=== PATIENT | female | born 1965 | race Caucasian/White ===

== ENCOUNTER 2016-10-15 16:33 | Emergency (ER) | payer OTHER ==
--- NOTE | 2016-10-15 17:11 | ERPHSYRPT ---
- History of Present Illness Time Seen by Provider: 10/15/16 17:00 Source: patient Exam Limitations: no limitations Patient Subjective Stated Complaint: pt states she has had lethargy for the past 1 week. pt states she has a hx of kidney failure and is worried about her kidney function. pt also c/o back pain she states she was treated with a steriod for a few weeks ago. Triage Nursing Assessment: pt pink, warm, dry. pt ambulated into er without difficulty. pt afebrile. Physician History: 51 y/o female with history of renal insufficiency comes to the ER with complaints of feeling exhausted for the past week. Pt mentions she has no energy lately and is concerned that her kidney function has worsened. Pt reports that the last time her PCP evaluated her kidneys was last year at which time there was significant improvement from 18% to 34%. Pt was on steroids for back pain 2 weeks ago. No other new medications. Pt also admits to mild fluttering, but denies any fever, chills, chest pain, shortness of breath, dizziness, abdominal pain, nausea, vomiting, diarrhea, bloody stools, melena or urinary symptoms. Timing/Duration: day(s) Severity: moderate Allergies/Adverse Reactions: hydrocodone bitartrate [From Vicodin] Allergy (Mild, Verified 10/15/16 17:07) Itching oxycodone [Oxycodone] Allergy (Mild, Verified 10/15/16 17:07) Itching Sulfa (Sulfonamide Antibiotics) [Sulfa(Sulfonamide Antibiotics)] Allergy (Mild, Verified 10/15/16 17:07) Hives codeine Adverse Reaction (Mild, Verified 10/15/16 17:07) Itching meperidine HCl [From Demerol] Adverse Reaction (Mild, Verified 10/15/16 17:07) Vomiting Home Medications: Allopurinol 300 mg [Zyloprim 300 mg] 300 mg PO DAILY 02/16/15 [History] Aspirin 81 mg PO DAILY 02/16/15 [History] Atorvastatin Calcium [Lipitor] 80 mg PO HS 02/16/15 [History] Furosemide 20 mg PO DAILY 02/16/15 [History] Lisinopril [Zestril] 2.5 mg PO DAILY 02/16/15 [History] Omeprazole 40 mg PO DAILY 02/16/15 [History] Ropinirole HCl 1 mg PO HS 02/16/15 [History] Temazepam 30 mg PO HS 02/16/15 [History] Potassium Chloride 16 meq PO DAILY 07/28/16 [History] Venlafaxine HCl ER 75 mg [Effexor XR 75 MG] 75 mg PO DAILY 07/28/16 [ History] Hx Tetanus, Diphtheria Vaccination/Date Given: Yes (up to date) Hx Influenza Vaccination/Date Given: Yes Hx Pneumococcal Vaccination/Date Given: Yes Immunizations Up to Date: Yes - Review of Systems Constitutional: Fatigue, Lethargy, Weakness, No Fever, No Chills Eyes: No Symptoms Ears, Nose, & Throat: No Symptoms Respiratory: No Cough, No Dyspnea Cardiac: Palpitations, No Chest Pain, No Edema, No Syncope Abdominal/Gastrointestinal: No Abdominal Pain, No Nausea, No Vomiting, No Diarrhea Genitourinary Symptoms: No Dysuria Musculoskeletal: No Back Pain, No Neck Pain Skin: No Rash Neurological: No Dizziness, No Focal Weakness, No Sensory Changes Psychological: No Symptoms Endocrine: No Symptoms All Other Systems: Reviewed and Negative - Past Medical History Pertinent Past Medical History: Yes Neurological History: Migraines ENT History: No Pertinent History Cardiac History: Angina, Congestive Heart Failure, Coronary Artery Disease, High Cholesterol, Hypertension, Myocardial Infarction ([place]) Respiratory History: Asthma Endocrine Medical History: No Pertinent History Musculoskeletal History: Arthritis GI Medical History: GERD, Gallbladder Disease, GI Bleed History: Renal Disease Psycho-Social History: Anxiety, Depression Female Reproductive Disorders: Abnormal Uterine Bleeding, Endometriosis Other Medical History: GOUT - RLS - Past Surgical History Past Surgical History: Yes Neuro Surgical History: No Pertinent History Cardiac: CABG, Cardiac Catheterization Respiratory: No Pertinent History Gastrointestinal: Cholecystectomy Genitourinary: Kidney Surgery Musculoskeletal: Other Female Surgical History: Hysterectomy Other Surgical History: knee muscle lateral release dwaine , kidney stone removal x 7, hernia repair - Social History Smoking Status: Never smoker Exposure to second hand smoke: No Drug Use: none Patient Lives Alone: No Significant Family History: heart disease, hypertension - Female History Hx Now: No - Nursing Vital Signs Nursing Vital Signs: Initial Vital Signs Temperature 98.1 F Temperature Source Oral Pulse Rate 74 Respiratory Rate 18 Blood Pressure [Right Arm] 131/77 Pain Intensity 0 - Physical Exam General Appearance: no apparent distress, alert, anxiety, obese Eye Exam: PERRL/EOMI, eyes nml inspection Ears, Nose, Throat Exam: normal ENT inspection, TMs normal, pharynx normal, moist mucous membranes Neck Exam: normal inspection, non-tender, supple, full range of motion Respiratory Exam: normal breath sounds, lungs clear, No respiratory distress Cardiovascular Exam: regular rate/rhythm, normal heart sounds, normal peripheral pulses Gastrointestinal/Abdomen Exam: soft, normal bowel sounds, No tenderness, No mass Back Exam: normal inspection, normal range of motion, No CVA tenderness, No vertebral tenderness Extremity Exam: normal inspection, normal range of motion, pelvis stable Neurologic Exam: alert, oriented x 3, cooperative, normal mood/affect, nml cerebellar function, nml station & gait, sensation nml, No motor deficits Skin Exam: normal color, warm, dry, No rash Lymphatic Exam: No adenopathy Ordered Tests: Active Orders 24 hr Category Date Time Status Business Analytics Intern STAT Care 10/15/16 17:12 Active EKG-ER Only STAT Care 10/15/16 17:05 Active IV Insertion STAT Care 10/15/16 17:05 Active Pulse Oximetry (ED) STAT Care 10/15/16 17:12 Active CBC W DIFF Stat Lab 10/15/16 17:10 Completed CK-Creatinine Phosphokinase Stat Lab 10/15/16 17:10 Completed CMP Stat Lab 10/15/16 17:10 Completed TROPONIN Stat Lab 10/15/16 17:10 Completed TSH, 3RD Generation Stat Lab 10/15/16 17:10 Completed UA W/RFX UR CULTURE Stat Lab 10/15/16 17:10 Completed Medication Summary Generic Name Dose Route Start Last Admin Trade Name Freq PRN Reason Stop Dose Admin Sodium Chloride 1,000 mls @ 999 mls/hr 10/15/16 18:21 10/15/16 18:31 Sodium Chloride 0.9% 1000 Ml IV 10/15/16 19:21 999 mls/hr .Q1H1M STA Administration Discontinued Medications Generic Name Dose Route Start Last Admin Trade Name Freq PRN Reason Stop Dose Admin Sodium Chloride Confirm 10/15/16 18:23 Sodium Chloride 0.9% 1000 Ml Administered 10/15/16 18:24 Dose 1,000 mls @ ud .ROUTE .STK-MED ONE Lab/Rad Data: Laboratory Result Diagrams 10/15/16 17:10 10/15/16 17:10 Laboratory Results 10/15/16 10/15/16 10/15/16 Range/Units 17:10 17:10 17:10 WBC (4.0-10.5) K/mm3 RBC (4.1-5.4) M/mm3 Hgb (12.0-16.0) gm/dl Hct (35-47) % MCV (78-100) fl MCH (26-32) pg MCHC (32-36) g/dl RDW (11.5-14.0) % Plt Count (150-450) K/mm3 MPV (6-9.5) fl Gran % (36.0-66.0) % Lymphocytes % (24.0-44.0) % Monocytes % (0.0-12.0) % Eosinophils % (0.00-5.0) % Basophils % (0.0-0.4) % Basophils # (0-0.4) Sodium 143 (136-145) mEq/L Potassium 4.1 (3.5-5.1) mEq/L Chloride 107 (98-107) mEq/L Carbon Dioxide 22.3 (21-32) mEq/L Anion Gap 17.4 H (5-15) MEQ/L BUN 23 H (9-20) mg/dL Creatinine 1.35 H (0.55-1.30) mg/dl Estimated GFR 44 ML/MIN Glucose 145 H (70-110) MG/DL Calcium 8.9 (8.5-10.1) mg/dL Total Bilirubin 0.3 (0.2-1.0) mg/dL AST 21 (15-37) U/L ALT 38 (12-78) U/L Alkaline Phosphatase 102 (46-116) U/L Creatine Kinase 48 (26-192) U/L Troponin I < 0.017 (0.000-0.056) ng/ml Serum Total Protein 6.9 (6.4-8.2) gm/dL Albumin 3.3 L (3.4-5.0) g/dL TSH 3rd Generation 0.563 (0.358-3.740) mIU/L Ur Collection Type CLEAN CATCH Urine Color YELLOW (YELLOW) Urine Appearance CLEAR (CLEAR) Urine pH 5.5 (5-6) Ur Specific [place] 1.020 (1.005-1.025) Urine Protein NEGATIVE (Negative) Urine Glucose (UA) NEGATIVE (NEGATIVE) mg/dL Urine Ketones NEGATIVE (NEGATIVE) Urine Nitrite NEGATIVE (NEGATIVE) Urine Bilirubin NEGATIVE (NEGATIVE) Urine Urobilinogen 0.2 (0-1) mg/dL Urine WBC (Auto) NEGATIVE (NEGATIVE) Urine RBC (Auto) NEGATIVE (0-5) Zain/ul Specimen Received 10/15/16 1735 10/15/16 Range/Units 17:10 WBC 7.6 (4.0-10.5) K/mm3 RBC 4.54 (4.1-5.4) M/mm3 Hgb 13.3 (12.0-16.0) gm/dl Hct 42.0 (35-47) % MCV 92.5 (78-100) fl MCH 29.3 (26-32) pg MCHC 31.7 L (32-36) g/dl RDW 14.0 (11.5-14.0) % Plt Count 248 (150-450) K/mm3 MPV 10.9 H (6-9.5) fl Gran % 50.6 (36.0-66.0) % Lymphocytes % 37.2 (24.0-44.0) % Monocytes % 8.4 (0.0-12.0) % Eosinophils % 3.4 (0.00-5.0) % Basophils % 0.4 (0.0-0.4) % Basophils # 0.03 (0-0.4) Sodium (136-145) mEq/L Potassium (3.5-5.1) mEq/L Chloride (98-107) mEq/L Carbon Dioxide (21-32) mEq/L Anion Gap (5-15) MEQ/L BUN (9-20) mg/dL Creatinine (0.55-1.30) mg/dl Estimated GFR ML/MIN Glucose (70-110) MG/DL Calcium (8.5-10.1) mg/dL Total Bilirubin (0.2-1.0) mg/dL AST (15-37) U/L ALT (12-78) U/L Alkaline Phosphatase (46-116) U/L Creatine Kinase (26-192) U/L Troponin I (0.000-0.056) ng/ml Serum Total Protein (6.4-8.2) gm/dL Albumin (3.4-5.0) g/dL TSH 3rd Generation (0.358-3.740) mIU/L Ur Collection Type Urine Color (YELLOW) Urine Appearance (CLEAR) Urine pH (5-6) Ur Specific [place] (1.005-1.025) Urine Protein (Negative) Urine Glucose (UA) (NEGATIVE) mg/dL Urine Ketones (NEGATIVE) Urine Nitrite (NEGATIVE) Urine Bilirubin (NEGATIVE) Urine Urobilinogen (0-1) mg/dL Urine WBC (Auto) (NEGATIVE) Urine RBC (Auto) (0-5) Zain/ul Specimen Received - Progress Progress: improved Progress Note: 10/15/16 18:51 Pt has an elevated BUN and Cr that is likely related to dehydration. Pt has a GFR of 44. The rest of the labs are within normal limits. Pt has agreed to F/U with her PCP regarding any additional recommendations for fatigue - Departure Time of Disposition: 18:52 Departure Disposition: Home Clinical Impression: Weakness, Fatigue, Dehydration Condition: Stable Critical Care Time: No Referrals: TNIA KING [Primary Care Provider] - Instructions: Muscle Weakness, Fatigue, Dehydration -- Adult Additional Instructions: Follow up with your primary care doctor regarding any additional recommendations for fatigue.
[2016-10-15 17:38] LABS: BASOPHIL % 0.4 % (0.0-0.4); Eosinophil % 3.4 % (0.00-5.0); Granulocytes % 50.6 % (36.0-66.0); Lymphocytes % 37.2 % (24.0-44.0); Mean Cell Volume 92.5 fl (78-100); Mean Corpuscular Hemoglobin 29.3 pg (26-32); Mean Platelet Volume 10.9 fl (6-9.5); Monocytes % 8.4 % (0.0-12.0); Platelet Count 248 K/mm3 (150-450); Red Blood Count 4.54 M/mm3 (4.1-5.4); White Blood Count 7.6 K/mm3 (4.0-10.5)
[2016-10-15 17:40] LABS: ADD URINE CULTURE? NO (NO); COMPLETE URINE MICROSCOPIC? NO; Collection Type CLEAN CATCH; Ph 5.5 (5-6)
[2016-10-15 18:07] LABS: ALBUMIN 3.3 g/dL (3.4-5.0); ALKALINE PHOSPHATASE 102 U/L (46-116); ANION GAP 17.4 MEQ/L (5-15); BILIRUBIN,TOTAL 0.3 mg/dL (0.2-1.0); BLOOD UREA NITROGEN 23 mg/dL (9-20); CHLORIDE 107 mEq/L (98-107); Carbon Dioxide 22.3 mEq/L (21-32); Glucose 145 MG/DL (70-110); Potassium 4.1 mEq/L (3.5-5.1); SGOT/AST 21 U/L (15-37); SGPT/ALT 38 U/L (12-78); SODIUM 143 mEq/L (136-145); Total Protein 6.9 gm/dL (6.4-8.2)
[2016-10-15 18:09] LABS: TROPONIN < 0.017 ng/ml (0.000-0.056)
[2016-10-15] MEDS ORDERED: Sodium Chloride 0.9% 1000 ML 1,000 ML IV STA (18:21)
[2016-10-15] MEDS ORDERED: Sodium Chloride 0.9% 1000 ML 1,000 ML ONE (18:23)
[2016-10-15 20:02] VITALS: BP 122/71; PULSE 81; O2SAT 100
== END 2016-10-15 20:01 | disposition home or self-care (01) ==
LOC: ED 16:33
DX: R53.1 Weakness (principal); R53.83 Other fatigue; E86.0 Dehydration; R00.2 Palpitations; I50.9 Heart failure, unspecified; I25.10 Atherosclerotic heart disease of native coronary artery without angina pectoris; E78.00 Pure hypercholesterolemia, unspecified; I10 Essential (primary) hypertension; I25.2 Old myocardial infarction; Z95.1 Presence of aortocoronary bypass graft
CPT/HCPCS: 36000; 36415; 80053; 81000; 82550; 84443; 84484; 85025; 93005; 93041; 96360; 99283

== ENCOUNTER 2017-02-08 10:06 | Emergency (ER) | payer OTHER ==
[2017-02-08 10:28] VITALS: O2SAT 96
[2017-02-08] MEDS ORDERED: Norflex 60 MG/2 ML IM ONE (10:37)
[2017-02-08] MEDS ORDERED: DECADRON 10MG INJ. IM ONE (10:37)
[2017-02-08] MEDS ORDERED: Norflex 60 MG/2 ML ONE (10:42)
[2017-02-08] MEDS ORDERED: DECADRON 10MG INJ. ONE (10:42)
--- NOTE | 2017-02-08 10:45 | ERPHSYRPT ---
- History of Present Illness Time Seen by Provider: 02/08/17 10:22 Source: patient Patient Subjective Stated Complaint: pt states she has had lower diffuse back pain for the past 2 days. became worse after walkin on 02/06/17. Triage Nursing Assessment: pt pink, warm, dry. pt ambulated into ER without difficulty. no deformities noted to back. denies any dysuria. Physician History: CC: back pain Hx: 51 y/o patient of Dr King/[place]. She has low back pain. Worsened over two years. Now has some tingle down left leg. No bladder symptoms. No fever or chills. No hx of CA. No discreet injury or fall. The pain was worse. In the past she used to get injections thru a specialist in [facility]. She has also used physical therapy in the past but felt it made her worse. Back Pain Location: lumbar spine Severity of Pain-Max: severe Severity of Pain-Current: severe Allergies/Adverse Reactions: hydrocodone bitartrate [From Vicodin] Allergy (Mild, Verified 02/08/17 10:27) Itching oxycodone [Oxycodone] Allergy (Mild, Verified 02/08/17 10:27) Itching Sulfa (Sulfonamide Antibiotics) [Sulfa(Sulfonamide Antibiotics)] Allergy (Mild, Verified 02/08/17 10:27) Hives codeine Adverse Reaction (Mild, Verified 02/08/17 10:27) Itching meperidine HCl [From Demerol] Adverse Reaction (Mild, Verified 02/08/17 10:27) Vomiting Home Medications: Allopurinol 300 mg [Zyloprim 300 mg] 300 mg PO DAILY 02/16/15 [History] Aspirin 81 mg PO DAILY 02/16/15 [History] Atorvastatin Calcium [Lipitor] 80 mg PO HS 02/16/15 [History] Furosemide 20 mg PO DAILY 02/16/15 [History] Lisinopril [Zestril] 2.5 mg PO DAILY 02/16/15 [History] Omeprazole 40 mg PO DAILY 02/16/15 [History] Ropinirole HCl 1 mg PO HS 02/16/15 [History] Temazepam 30 mg PO HS 02/16/15 [History] Potassium Chloride 16 meq PO DAILY 07/28/16 [History] Hx Tetanus, Diphtheria Vaccination/Date Given: Yes (up to date) Hx Influenza Vaccination/Date Given: Yes Hx Pneumococcal Vaccination/Date Given: Yes Immunizations Up to Date: Yes - Review of Systems Constitutional: No Fever, No Chills Eyes: No Symptoms Ears, Nose, & Throat: No Symptoms Respiratory: No Cough Cardiac: No Chest Pain Abdominal/Gastrointestinal: No Abdominal Pain Genitourinary Symptoms: No Dysuria, No Hematuria, No Incontinence, No Flank Pain Musculoskeletal: Back Pain, No Fall, No Injury Skin: No Rash Neurological: Parasthesia (left leg), No Headache, No Paralysis All Other Systems: Reviewed and Negative - Past Medical History Pertinent Past Medical History: Yes Neurological History: Migraines ENT History: No Pertinent History Cardiac History: Angina, Congestive Heart Failure, Coronary Artery Disease, High Cholesterol, Hypertension, Myocardial Infarction ([place]) Respiratory History: Asthma Endocrine Medical History: No Pertinent History Musculoskeletal History: Arthritis GI Medical History: GERD, Gallbladder Disease, GI Bleed History: Renal Disease Psycho-Social History: Anxiety, Depression Female Reproductive Disorders: Abnormal Uterine Bleeding, Endometriosis Other Medical History: GOUT - RLS - Past Surgical History Past Surgical History: Yes Neuro Surgical History: No Pertinent History Cardiac: CABG, Cardiac Catheterization Respiratory: No Pertinent History Gastrointestinal: Cholecystectomy Genitourinary: Kidney Surgery Musculoskeletal: Other Female Surgical History: Hysterectomy Other Surgical History: knee muscle lateral release dwaine , kidney stone removal x 7, hernia repair - Social History Smoking Status: Never smoker Exposure to second hand smoke: No Drug Use: none Patient Lives Alone: No Significant Family History: heart disease, hypertension - Female History Hx Now: No - Nursing Vital Signs Temperature: 98.3 F Temperature Source: Oral Pulse Rate: 59 Respiratory Rate: 22 - Physical Exam General Appearance: alert, obese, other (pleasant lady) Eye Exam: PERRL/EOMI Ears, Nose, Throat Exam: normal ENT inspection, moist mucous membranes Neck Exam: normal inspection, non-tender, supple Respiratory Exam: normal breath sounds, lungs clear Cardiovascular Exam: regular rate/rhythm Gastrointestinal Exam: soft, No tenderness, No distention Back Exam: normal inspection, other (diffuse low discomfort) Extremity Exam: normal inspection, normal range of motion Neurologic Exam: alert, oriented x 3, sensation nml, No motor deficits Skin Exam: warm, dry, No rash SpO2 Interpretation: normal SpO2: 96 Oxygen Delivery: Room Air - Course Nursing assessment & vital signs reviewed: Yes Ordered Tests: Medication Summary Discontinued Medications Generic Name Dose Route Start Last Admin Trade Name Nita PRN Reason Stop Dose Admin Dexamethasone Sodium Phosphate 10 mg 02/08/17 10:37 Decadron 10mg Inj. IM 02/08/17 10:38 STAT ONE Orphenadrine Citrate 60 mg 02/08/17 10:37 Norflex 60 Mg/2 Ml IM 02/08/17 10:38 STAT ONE - Progress Progress Note: 02/08/17 10:44 X-ray does not seem indicated. Advised she follow up with Dr King to consider PT or referral back to her destination specialist. She will continued APAP. Rx norflex and shot given. Also IM decadron given here. She can not take hydrocodone, oxycodone, nor NSAIDS. Counseled pt/family regarding: diagnosis, need for follow-up - Departure Time of Disposition: 10:45 Departure Disposition: Home Clinical Impression: Sciatica, left side Condition: Stable Critical Care Time: No Referrals: TINA KING [Primary Care Provider] - Instructions: Low Back Pain Additional Instructions: BACK INJURY 1. May apply moist heat frequently for relief of pain. Take care not to burn the skin. Do not use heat for more than 30 minutes at a time. 2. Try to sleep on a firm bed, flat on your back. 3. If no improvement is noticed in 2-3 days, follow up with your family physician. 4. If you notice any numbness, tingling, weakness, or problems with your bowel or bladder, you should call your family physician or return to the emergency department. Rx norflex- don't take until tonite. No driving or operating machinery while taking norflex. Continue tylenol as directed. You were given a steroid injection in ER also. Follow up this week with Dr King. Prescriptions: Orphenadrine Citrate 100 mg [Norflex 100 MG Tablet] 1 tab PO BID #10 tab
[2017-02-08 10:54] VITALS: BP 120/72; PULSE 60
== END 2017-02-08 11:00 | disposition home or self-care (01) ==
LOC: ED 10:06
DX: M54.32 Sciatica, left side (principal)
CPT/HCPCS: 96372; 99284; J1100; J2360

== ENCOUNTER 2017-03-04 22:29 | Emergency (ER) | payer OTHER ==
[2017-03-04] MEDS ORDERED: BABY ASPIRIN 81 MG CHEW PO ONE (22:38)
[2017-03-04] MEDS ORDERED: Nitrostat 0.4 MG (ED) SL ONE ×2 (22:38→22:47)
--- NOTE | 2017-03-04 22:42 | ERPHSYRPT ---
- History of Present Illness Time Seen by Provider: 03/04/17 22:30 Historian: patient Exam Limitations: no limitations Physician History: FOR THE PAST 2 HOURS PT HAS HAD INTERMITTENT MID CHEST PAIN LASTING UP TO 2 SECONDS/EPISODE; FOR THE PAST 30 MINUTES A HEADACHE; FOR THE PAST 24 HOURS CHILLS; FOR THE PAST FEW MONTHS MID BACK PAIN. Aspirin Treatment Today: 81 mg x 4, provided by ED Allergies/Adverse Reactions: hydrocodone bitartrate [From Vicodin] Allergy (Mild, Verified 03/04/17 22:42) Itching oxycodone [Oxycodone] Allergy (Mild, Verified 03/04/17 22:42) Itching Sulfa (Sulfonamide Antibiotics) [Sulfa(Sulfonamide Antibiotics)] Allergy (Mild, Verified 03/04/17 22:42) Hives codeine Adverse Reaction (Mild, Verified 03/04/17 22:42) Itching meperidine HCl [From Demerol] Adverse Reaction (Mild, Verified 03/04/17 22:42) Vomiting Home Medications: Allopurinol 300 mg [Zyloprim 300 mg] 300 mg PO DAILY 02/16/15 [History] Aspirin 81 mg PO DAILY 02/16/15 [History] Atorvastatin Calcium [Lipitor] 80 mg PO HS 02/16/15 [History] Furosemide 20 mg PO QAM 02/16/15 [History] Lisinopril [Zestril] 2.5 mg PO QAM 02/16/15 [History] Omeprazole 40 mg PO QAM 02/16/15 [History] Ropinirole HCl 1 mg PO HS 02/16/15 [History] Temazepam 30 mg PO HS 02/16/15 [History] Potassium Chloride 16 meq PO QAM 07/28/16 [History] Cholecalciferol (Vitamin D3) [Vitamin D3] 1,000 unit PO QAM 03/04/17 [History] Cyanocobalamin 500 Mcg [Vitamin B-12 500 MCG] 2,500 mcg PO QAM 03/04/17 [ History] Iron 65 mg PO BID 03/04/17 [History] Venlafaxine HCl ER 75 mg [Effexor XR 75 MG] 75 mg PO QAM 03/04/17 [History ] Hx Tetanus, Diphtheria Vaccination/Date Given: Yes (up to date) Hx Influenza Vaccination/Date Given: Yes Hx Pneumococcal Vaccination/Date Given: Yes - Review of Systems Constitutional: Chills Cardiac: Chest Pain Musculoskeletal: Back Pain Neurological: Headache All Other Systems: Reviewed and Negative - Past Medical History Pertinent Past Medical History: Yes Neurological History: Migraines ENT History: No Pertinent History Cardiac History: Angina, Congestive Heart Failure, Coronary Artery Disease, High Cholesterol, Hypertension, Myocardial Infarction ([place]) Respiratory History: Asthma Endocrine Medical History: No Pertinent History Musculoskeletal History: Arthritis GI Medical History: GERD, Gallbladder Disease, GI Bleed History: Renal Disease Psycho-Social History: Anxiety, Depression Female Reproductive Disorders: Abnormal Uterine Bleeding, Endometriosis Other Medical History: GOUT - RLS - Past Surgical History Past Surgical History: Yes Neuro Surgical History: No Pertinent History Cardiac: CABG, Cardiac Catheterization Respiratory: No Pertinent History Gastrointestinal: Cholecystectomy Genitourinary: Kidney Surgery Musculoskeletal: Other Female Surgical History: Hysterectomy Other Surgical History: knee muscle lateral release dwaine , kidney stone removal x 7, hernia repair - Social History Smoking Status: Never smoker Exposure to second hand smoke: No Drug Use: none Patient Lives Alone: No Significant Family History: heart disease, hypertension - Female History Hx Now: No - Nursing Vital Signs Nursing Vital Signs: Initial Vital Signs Temperature 98.2 F Temperature Source Oral Pulse Rate [] 86 Pulse Rate 81 Respiratory Rate 16 Blood Pressure [] 122/73 Pain Intensity 1 - Physical Exam General Appearance: alert Eye Exam: PERRL/EOMI, eyes nml inspection Ears, Nose, Throat Exam: pharynx normal, moist mucous membranes Neck Exam: normal inspection Respiratory Exam: lungs clear Cardiovascular Exam: normal heart sounds Gastrointestinal/Abdomen Exam: soft, normal bowel sounds Back Exam: normal range of motion Extremity Exam: normal inspection Neurologic Exam: alert, cooperative Skin Exam: warm, dry - Course Nursing assessment & vital signs reviewed: Yes EKG Interpreted by Me: RATE (84), Sinus Rhythm, NORMAL AXIS, NORMAL INTERVALS, Other (IRBBB) - Radiology Exams Chest X-ray Interpretation: Interpreted by me, No Pneumonia Ordered Tests: Active Orders 24 hr Category Date Time Status Therapeutic Recreation Assistant STAT Care 03/04/17 22:37 Active EKG-ER Only STAT Care 03/04/17 22:37 Active IV Insertion STAT Care 03/04/17 22:37 Active Oxygen-ED Only NASAL CANNULA 2 lpm Care 03/04/17 22:37 Active Pulse Oximetry (ED) STAT Care 03/04/17 22:37 Active CHEST 1 VIEW (PORTABLE) Stat Exams 03/04/17 22:37 Taken AMYLASE Stat Lab 03/04/17 22:40 Completed CBC W DIFF Stat Lab 03/04/17 22:40 Completed CMP Stat Lab 03/04/17 22:40 Completed LIPASE Stat Lab 03/04/17 22:40 Completed MAGNESIUM Stat Lab 03/04/17 22:40 Completed NT PRO BNP Stat Lab 03/04/17 22:40 Completed TROPONIN Q3H Lab 03/04/17 22:40 Completed TROPONIN Q3H Lab 03/05/17 01:45 Ordered TROPONIN Q3H Lab 03/05/17 04:45 Ordered TROPONIN Q3H Lab 03/05/17 07:45 Ordered TROPONIN Q3H Lab 03/05/17 10:45 Ordered Medication Summary Generic Name Dose Route Start Last Admin Trade Name Freq PRN Reason Stop Dose Admin Sodium Chloride 1,000 mls @ 100 mls/hr 03/04/17 22:45 03/04/17 22:48 Sodium Chloride 0.9% 1000 Ml IV 04/03/17 22:44 100 mls/hr .Q10H HEIDI Administration Discontinued Medications Generic Name Dose Route Start Last Admin Trade Name Freq PRN Reason Stop Dose Admin Aspirin 324 mg 03/04/17 22:38 03/04/17 22:48 Baby Aspirin 81 Mg Chew PO 03/04/17 22:39 324 mg STAT ONE Administration Aspirin Confirm 03/04/17 22:46 Baby Aspirin 81 Mg Chew Administered 03/04/17 22:47 Dose 324 mg .ROUTE .STK-MED ONE Nitroglycerin 0.4 mg 03/04/17 22:38 03/04/17 22:48 Nitrostat 0.4 Mg (Ed) SL 03/04/17 22:39 0.4 mg STAT ONE Administration Nitroglycerin Confirm 03/04/17 22:47 Nitrostat 0.4 Mg (Ed) Administered 03/04/17 22:48 Dose 0.4 mg SL .STK-MED ONE Lab/Rad Data: Laboratory Result Diagrams 03/04/17 22:40 03/04/17 22:40 Laboratory Results 03/04/17 03/04/17 03/04/17 Range/Units 22:40 22:40 22:40 WBC 8.3 (4.0-10.5) K/mm3 RBC 4.73 (4.1-5.4) M/mm3 Hgb 14.2 (12.0-16.0) gm/dl Hct 43.4 (35-47) % MCV 91.8 (78-100) fl MCH 30.0 (26-32) pg MCHC 32.7 (32-36) g/dl RDW 13.4 (11.5-14.0) % Plt Count 275 (150-450) K/mm3 MPV 10.8 H (6-9.5) fl Gran % 43.8 (36.0-66.0) % Lymphocytes % 40.8 (24.0-44.0) % Monocytes % 10.8 (0.0-12.0) % Eosinophils % 4.2 (0.00-5.0) % Basophils % 0.4 (0.0-0.4) % Basophils # 0.03 (0-0.4) Sodium 142 (136-145) mEq/L Potassium 3.9 (3.5-5.1) mEq/L Chloride 107 (98-107) mEq/L Carbon Dioxide 24.7 (21-32) mEq/L Anion Gap 13.8 (5-15) MEQ/L BUN 18 (9-20) mg/dL Creatinine 1.18 (0.55-1.30) mg/dl Estimated GFR 51 ML/MIN Glucose 178 H (70-110) MG/DL Calcium 9.2 (8.5-10.1) mg/dL Magnesium 2.0 (1.8-2.4) mg/dL Total Bilirubin 0.20 (0.2-1.0) mg/dL AST 21 (15-37) U/L ALT 33 (12-78) U/L Alkaline Phosphatase 145 H (46-116) U/L Troponin I < 0.017 (0.000-0.056) ng/ml NT-Pro-B Natriuret Pep 41 (0-125) pg/ml Serum Total Protein 7.3 (6.4-8.2) gm/dL Albumin 3.6 (3.4-5.0) g/dL Amylase 39 (25-115) U/L Lipase 252 (73-393) U/L - Progress Progress Note: 03/04/17 23:52 PT DOES NOT WANT A U/A. - Departure Time of Disposition: 23:53 Departure Disposition: Home Clinical Impression: CHEST PAIN Condition: Fair Critical Care Time: No Referrals: TINA KING [Primary Care Provider] - Instructions: Chest Pain Additional Instructions: FOLLOW UP WITH PRIVATE DOCTOR TOMORROW.
[2017-03-04] MEDS ORDERED: Sodium Chloride 0.9% 1000 ML 1,000 ML IV SCH (22:45)
[2017-03-04] MEDS ORDERED: BABY ASPIRIN 81 MG CHEW ONE (22:46)
[2017-03-04] MEDS ORDERED: Sodium Chloride 0.9% 1000 ML 1,000 ML ONE (22:47)
[2017-03-04 22:53] LABS: BASOPHIL % 0.4 % (0.0-0.4); Eosinophil % 4.2 % (0.00-5.0); Granulocytes % 43.8 % (36.0-66.0); Lymphocytes % 40.8 % (24.0-44.0); Mean Cell Volume 91.8 fl (78-100); Mean Platelet Volume 10.8 fl (6-9.5); Monocytes % 10.8 % (0.0-12.0); Platelet Count 275 K/mm3 (150-450); Red Blood Count 4.73 M/mm3 (4.1-5.4); Red Cell Distribution Width 13.4 % (11.5-14.0); White Blood Count 8.3 K/mm3 (4.0-10.5)
[2017-03-04 23:01] VITALS: O2SAT 98
[2017-03-04 23:24] LABS: ALBUMIN 3.6 g/dL (3.4-5.0); ANION GAP 13.8 MEQ/L (5-15); BILIRUBIN,TOTAL 0.2 mg/dL (0.2-1.0); Carbon Dioxide 24.7 mEq/L (21-32); Potassium 3.9 mEq/L (3.5-5.1); Total Protein 7.3 gm/dL (6.4-8.2)
[2017-03-05 00:29] VITALS: BP 152/75; PULSE 76
--- NOTE | 2017-03-05 08:16 | XRAY ---
Indication: Chest pain. Comparison: July 28, 2016. Portable chest unchanged again demonstrating previous CABG surgery without cardiomegaly and minimal bibasilar atelectasis/scarring. No infiltrate, consolidation, or large effusion. Vascularity normal. Bony thorax intact again with mild degenerative changes. Impression: Stable nonacute chest with chronic features.
== END 2017-03-05 00:30 | disposition home or self-care (01) ==
LOC: ED 22:29
DX: R07.9 Chest pain, unspecified (principal); I25.2 Old myocardial infarction; I50.9 Heart failure, unspecified; I25.10 Atherosclerotic heart disease of native coronary artery without angina pectoris; E78.00 Pure hypercholesterolemia, unspecified; I10 Essential (primary) hypertension
CPT/HCPCS: 36000; 36415; 71010; 80053; 82150; 83690; 83735; 83880; 84484; 85025; 93005; 93041; 96360; 96361; 99284; A9270-GY

== ENCOUNTER 2017-06-22 17:16 | Emergency (ER) | payer OTHER, SELFPAY ==
[2017-06-22] MEDS ORDERED: BENADRYL 50 MG/ML IV ONE (17:51)
[2017-06-22] MEDS ORDERED: SUBLIMAZE 100 MCG/2 ML IV ONE ×2 (17:51→18:21)
[2017-06-22] MEDS ORDERED: BENADRYL 50 MG/ML ONE (17:54)
[2017-06-22] MEDS ORDERED: Sodium Chloride 0.9% 1000 ML 1,000 ML ONE (17:54)
[2017-06-22] MEDS ORDERED: Zofran 4 MG/2 ML VIAL ONE (17:54)
[2017-06-22] MEDS ORDERED: SUBLIMAZE 100 MCG/2 ML ONE ×2 (17:54→18:22)
[2017-06-22 17:59] LABS: BASOPHIL % 0.3 % (0.0-0.4); Eosinophil % 2.4 % (0.00-5.0); Granulocytes % 63.2 % (36.0-66.0); Lymphocytes % 25.2 % (24.0-44.0); Mean Cell Volume 90.3 fl (78-100); Mean Corpuscular Hemoglobin 29.6 pg (26-32); Mean Platelet Volume 10.8 fl (6-9.5); Monocytes % 8.9 % (0.0-12.0); Platelet Count 280 K/mm3 (150-450); Red Blood Count 4.94 M/mm3 (4.1-5.4); Red Cell Distribution Width 14.4 % (11.5-14.0); White Blood Count 11.4 K/mm3 (4.0-10.5)
[2017-06-22] MEDS ORDERED: Sodium Chloride 0.9% 1000 ML 1,000 ML IV SCH (18:00)
[2017-06-22] MEDS: Zofran 4 MG/2 ML VIAL IV ONE ×2 (18:00→18:01)
--- NOTE | 2017-06-22 18:02 | ERPHSYRPT ---
- History of Present Illness Time Seen by Provider: 06/22/17 17:35 Historian: patient Exam Limitations: clinical condition Patient Subjective Stated Complaint: pt here for left flank pain for 2 days worse today, nausea. pt has hx of kidney stones Triage Nursing Assessment: pt alert, resp labored at times.skin w/d pink,bi edena noted , thrashing in bed Physician History: PATIENT WITH A HISTORY OF HYPERTENSION, HYPERLIPIDEMIA, AND CORONARY ARTERY DISEASE COMPLAINS OF ACUTE ONSET OF LEFT FLANK PAIN X 2 DAYS, SEVERE DISCOMFORT RADIATES AROUND HER SIDE INTO LOWER ABDOMEN. DENIES URINARY SYMPTOMS, FEVER, NAUSEA, EMESIS. Timing/Duration: day(s) Activities at Onset: none Quality: sharpness, stabbing Abdominal Pain Onset Location: flank Pain Radiation: LLQ Severity of Pain-Max: moderate Severity of Pain-Current: moderate Modifying Factors: Improves With: eating Associated Symptoms: denies symptoms Previous symptoms: no prior history Allergies/Adverse Reactions: hydrocodone bitartrate [From Vicodin] Allergy (Mild, Verified 06/22/17 17:30) Itching oxycodone [Oxycodone] Allergy (Mild, Verified 06/22/17 17:30) Itching Sulfa (Sulfonamide Antibiotics) [Sulfa(Sulfonamide Antibiotics)] Allergy (Mild, Verified 06/22/17 17:30) Hives codeine Adverse Reaction (Mild, Verified 06/22/17 17:30) Itching meperidine HCl [From Demerol] Adverse Reaction (Mild, Verified 06/22/17 17:30) Vomiting Home Medications: Allopurinol 300 mg [Zyloprim 300 mg] 300 mg PO DAILY 02/16/15 [History] Aspirin 81 mg PO DAILY 02/16/15 [History] Atorvastatin Calcium [Lipitor] 80 mg PO HS 02/16/15 [History] Furosemide 20 mg PO QAM 02/16/15 [History] Lisinopril [Zestril] 2.5 mg PO QAM 02/16/15 [History] Omeprazole 40 mg PO QAM 02/16/15 [History] Ropinirole HCl 1 mg PO HS 02/16/15 [History] Temazepam 30 mg PO HS 02/16/15 [History] Potassium Chloride 16 meq PO QAM 07/28/16 [History] Cholecalciferol (Vitamin D3) [Vitamin D3] 1,000 unit PO QAM 03/04/17 [History] Cyanocobalamin 500 Mcg [Vitamin B-12 500 MCG] 2,500 mcg PO QAM 03/04/17 [ History] Iron 65 mg PO BID 03/04/17 [History] Venlafaxine HCl ER 75 mg [Effexor XR 75 MG] 75 mg PO QAM 03/04/17 [History ] Hx Tetanus, Diphtheria Vaccination/Date Given: No Hx Influenza Vaccination/Date Given: No Hx Pneumococcal Vaccination/Date Given: No Immunizations Up to Date: Yes - Review of Systems Constitutional: No Fever, No Chills Eyes: No Symptoms Ears, Nose, & Throat: No Symptoms Respiratory: No Cough, No Dyspnea Cardiac: No Chest Pain, No Edema, No Syncope Abdominal/Gastrointestinal: Abdominal Pain, No Nausea, No Vomiting, No Diarrhea Genitourinary Symptoms: Flank Pain, No Dysuria Musculoskeletal: No Symptoms, No Back Pain, No Neck Pain Skin: No Rash Neurological: No Dizziness, No Focal Weakness, No Sensory Changes Psychological: No Symptoms Endocrine: No Symptoms All Other Systems: Reviewed and Negative - Past Medical History Pertinent Past Medical History: Yes Neurological History: Migraines ENT History: No Pertinent History Cardiac History: Angina, Congestive Heart Failure, Coronary Artery Disease, High Cholesterol, Hypertension, Myocardial Infarction ([place]) Respiratory History: Asthma Endocrine Medical History: No Pertinent History Musculoskeletal History: Arthritis GI Medical History: GERD, Gallbladder Disease, GI Bleed History: Renal Disease Psycho-Social History: Anxiety, Depression Female Reproductive Disorders: Abnormal Uterine Bleeding, Endometriosis Other Medical History: GOUT - RLS - Past Surgical History Past Surgical History: Yes Neuro Surgical History: No Pertinent History Cardiac: CABG, Cardiac Catheterization Respiratory: No Pertinent History Gastrointestinal: Cholecystectomy Genitourinary: Kidney Surgery Musculoskeletal: Other Female Surgical History: Hysterectomy Other Surgical History: knee muscle lateral release dwaine , kidney stone removal x 7, hernia repair - Social History Smoking Status: Never smoker Exposure to second hand smoke: No Drug Use: none Patient Lives Alone: Yes Significant Family History: heart disease, hypertension - Female History Hx Last Menstrual Period: hyster Hx Now: No - Nursing Vital Signs Nursing Vital Signs: Initial Vital Signs Temperature 97.5 F 06/22/17 17:29 Pulse Rate 77 06/22/17 17:29 Respiratory Rate 20 06/22/17 17:29 Blood Pressure 126/94 06/22/17 17:29 O2 Sat by Pulse Oximetry 98 06/22/17 17:29 Pain Scale Pain Intensity 2 - Physical Exam General Appearance: moderate distress Eye Exam: PERRL/EOMI, eyes nml inspection Ears, Nose, Throat Exam: normal ENT inspection, pharynx normal, moist mucous membranes Neck Exam: normal inspection, non-tender, supple, full range of motion Respiratory Exam: normal breath sounds Cardiovascular Exam: regular rate/rhythm, normal heart sounds Gastrointestinal/Abdomen Exam: soft, normal bowel sounds Back Exam: normal inspection, normal range of motion, CVA tenderness (MODERATE LEFT FLANK TENDERNESS), No vertebral tenderness Extremity Exam: normal inspection, normal range of motion Neurologic Exam: alert, oriented x 3, cooperative Skin Exam: normal color Lymphatic Exam: adenopathy SpO2 Interpretation: normal SpO2: 98 Oxygen Delivery: Room Air - CT Exams Abdomen/Pelvis CT Interpretation: Tele-radiologist Report (MILD TO MODERATE LEFT RENAL HYDRONEPHROSIS DUE TO A 4MM X 3.5MM CALCULI IN THE DISTAL ONE THIRD OF THE LEFT URETER) Ordered Tests: Active Orders 24 hr Category Date Time Status Clean Catch Urine Specimen STAT Care 06/22/17 17:49 Active IV Insertion STAT Care 06/22/17 17:49 Active Oxygen-ED Only NASAL CANNULA 2 lpm Care 06/22/17 18:37 Active ABDOMEN AND PELVIS W/0 CONTRAS [CT] Stat Exams 06/22/17 17:49 Taken AMYLASE Stat Lab 06/22/17 17:40 Completed BLOOD CULTURE Stat Lab 06/22/17 18:00 Received BMP Stat Lab 06/22/17 17:40 Completed CBC W DIFF Stat Lab 06/22/17 17:40 Completed LIPASE Stat Lab 06/22/17 17:40 Completed Urine Triage Profile Stat Lab 06/22/17 17:40 Completed Medication Summary Generic Name Dose Route Start Last Admin Trade Name Freq PRN Reason Stop Dose Admin Sodium Chloride 1,000 mls @ 500 mls/hr 06/22/17 18:00 06/22/17 19:12 Sodium Chloride 0.9% 1000 Ml IV 07/22/17 17:59 500 mls/hr .Q2H HEIDI Administration Discontinued Medications Generic Name Dose Route Start Last Admin Trade Name Freq PRN Reason Stop Dose Admin Diphenhydramine HCl 25 mg 06/22/17 17:51 06/22/17 18:02 Benadryl 50 Mg/Ml IV 06/22/17 17:52 25 mg STAT ONE Administration Diphenhydramine HCl Confirm 06/22/17 17:54 Benadryl 50 Mg/Ml Administered 06/22/17 17:55 Dose 50 mg .ROUTE .STK-MED ONE Fentanyl Citrate 100 mcg 06/22/17 17:51 06/22/17 18:01 Sublimaze 100 Mcg/2 Ml IV 06/22/17 17:52 100 mcg STAT ONE Administration Fentanyl Citrate Confirm 06/22/17 17:54 Sublimaze 100 Mcg/2 Ml Administered 06/22/17 17:55 Dose 100 mcg .ROUTE .STK-MED ONE Fentanyl Citrate 100 mcg 06/22/17 18:21 06/22/17 18:34 Sublimaze 100 Mcg/2 Ml IV 06/22/17 18:22 100 mcg STAT ONE Administration Fentanyl Citrate Confirm 06/22/17 18:22 Sublimaze 100 Mcg/2 Ml Administered 06/22/17 18:23 Dose 100 mcg .ROUTE .STK-MED ONE Ketorolac Tromethamine 30 mg 06/22/17 18:23 06/22/17 18:34 Toradol 30 Mg Injection IV 06/22/17 18:24 30 mg STAT ONE Administration Ketorolac Tromethamine Confirm 06/22/17 18:23 Toradol 30 Mg Injection Administered 06/22/17 18:24 Dose 30 mg .ROUTE .STK-MED ONE Ondansetron HCl 4 mg 06/22/17 17:49 06/22/17 18:01 Zofran 4 Mg/2 Ml Vial IV 06/22/17 17:50 4 mg STAT ONE Administration Ondansetron HCl Confirm 06/22/17 17:54 Zofran 4 Mg/2 Ml Vial Administered 06/22/17 17:55 Dose 4 mg .ROUTE .STK-MED ONE Lab/Rad Data: Laboratory Result Diagrams 06/22/17 17:40 06/22/17 17:40 Laboratory Results 06/22/17 06/22/17 06/22/17 Range/Units 17:40 17:40 17:40 WBC 11.4 H (4.0-10.5) K/mm3 RBC 4.94 (4.1-5.4) M/mm3 Hgb 14.6 (12.0-16.0) gm/dl Hct 44.6 (35-47) % MCV 90.3 (78-100) fl MCH 29.6 (26-32) pg MCHC 32.7 (32-36) g/dl RDW 14.4 H (11.5-14.0) % Plt Count 280 (150-450) K/mm3 MPV 10.8 H (6-9.5) fl Gran % 63.2 (36.0-66.0) % Lymphocytes % 25.2 (24.0-44.0) % Monocytes % 8.9 (0.0-12.0) % Eosinophils % 2.4 (0.00-5.0) % Basophils % 0.3 (0.0-0.4) % Basophils # 0.03 (0-0.4) Sodium 143 (136-145) mEq/L Potassium 3.8 (3.5-5.1) mEq/L Chloride 108 H (98-107) mEq/L Carbon Dioxide 24.6 (21-32) mEq/L Anion Gap 14.4 (5-15) MEQ/L BUN 15 (9-20) mg/dL Creatinine 1.68 H (0.55-1.30) mg/dl Estimated GFR 34 ML/MIN Glucose 93 (70-110) MG/DL Calcium 9.4 (8.5-10.1) mg/dL Amylase 39 (25-115) U/L Lipase 185 (73-393) U/L Urine Opiates Level NEG. (NEGATIVE) Ur Methadone NEG. (NEGATIVE) Urine Barbiturates NEG. (NEGATIVE) Ur Phencyclidine (PCP) NEG. (NEGATIVE) Urine Amphetamine POS. (NEGATIVE) U Benzodiazepine Level POS. (NEGATIVE) Urine Cocaine NEG. (NEGATIVE) Urine Marijuana (THC) NEG. (NEGATIVE) - Progress Progress: improved Progress Note: 06/22/17 18:02 ADMINISTERED IV FLUIDS NORMAL SALINE 500ML/HR, ZOFRAN 4MG, BENADRYL 25MG, FENTANYL 100MCG IV X 2 DOSES 06/22/17 19:43 Will see patient in: other (DISCUSSED WITH DR ONTIVEROS AT [facility] AT 1930 ACCEPTS TRANSFER) - Departure Time of Disposition: 19:45 Departure Disposition: Transfer Clinical Impression: LEFT DISTAL RENAL STONE, INTRACTABLE PAIN Condition: Stable Critical Care Time: No Referrals: TINA KING [Primary Care Provider] -
[2017-06-22] MEDS ORDERED: TORAdol 30 mg Injection IV ONE (18:23)
[2017-06-22] MEDS ORDERED: TORAdol 30 mg Injection ONE (18:23)
[2017-06-22 18:24] LABS: ANION GAP 14.4 MEQ/L (5-15); Carbon Dioxide 24.6 mEq/L (21-32); Potassium 3.8 mEq/L (3.5-5.1)
[2017-06-22 19:47] VITALS: BP 135/79; PULSE 79; O2SAT 98
--- NOTE | 2017-06-23 08:36 | XRAY ---
Indication: Left flank/abdomen pain. History of stones. Multiple contiguous axial images obtained through the abdomen and pelvis without contrast using renal stone protocol. Comparison: May 26, 2015. Lung bases again demonstrates bilateral atelectasis/scarring and left base calcified granuloma. Heart is not enlarged. Stable small hiatal hernia. There is now a 4 mm distal left ureteral calculus approximately 1 cm proximal to the UVJ. Proximal ureter is slightly prominent up to 6 mm and there is mild hydronephrosis consistent with partial obstruction. No perinephric fluid. Noncontrasted stomach and bowel loops appear nonobstructed. Again previous gastric bypass surgery, descending/sigmoid diverticulosis, cholecystectomy, and hysterectomy. No free fluid/air. Stable fatty liver and moderate-sized fatty umbilical hernia. Remaining liver, pancreas, spleen, adrenal glands, right kidney, right ureter, and bladder appear unremarkable for noncontrast exam. Again mild aortoiliac calcifications without AAA. Osseous structures intact again with minimal degenerative changes throughout the spine. Impression: 1. New 4 mm distal left ureteral calculus producing partial obstruction as detailed. 2. Stable colonic diverticulosis, fatty liver, hiatal hernia, and fatty umbilical hernia. Comment: Preliminary interpretation was made by [facility]. No discrepancy. CT DI 35.18
== END 2017-06-22 20:30 | disposition short-term general hospital (02) ==
LOC: ED 17:16
DX: N20.0 Calculus of kidney (principal); R10.9 Unspecified abdominal pain; R11.0 Nausea; I10 Essential (primary) hypertension; E78.5 Hyperlipidemia, unspecified; I25.10 Atherosclerotic heart disease of native coronary artery without angina pectoris; Z79.899 Other long term (current) drug therapy; E78.00 Pure hypercholesterolemia, unspecified; I25.2 Old myocardial infarction; Z95.1 Presence of aortocoronary bypass graft
CPT/HCPCS: 36000; 36415; 74176; 80048; 80307; 82150; 83690; 85025; 87040; 96360; 96361; 96374; 96375; 99285; J1200; J1885; J2405; J3010

== ENCOUNTER 2017-07-09 08:23 | Observation (INO) | payer OTHER, SELFPAY ==
[2017-07-09] MEDS ORDERED: Sodium Chloride 0.9% 1000 ML 1,000 ML IV SCH (08:45)
[2017-07-09] MEDS ORDERED: Sodium Chloride 0.9% 1000 ML 1,000 ML ONE (08:51)
[2017-07-09] MEDS ORDERED: Pepcid 20 MG VIAL IV ONE ×2 (09:11→09:28)
[2017-07-09 09:14] LABS: BASOPHIL % 0.4 % (0.0-0.4); Eosinophil % 3.3 % (0.00-5.0); Granulocytes % 64.1 % (36.0-66.0); Mean Cell Volume 91.9 fl (78-100); Mean Corpuscular Hemoglobin 29.2 pg (26-32); Mean Platelet Volume 10.2 fl (6-9.5); Monocytes % 7.2 % (0.0-12.0); Platelet Count 291 K/mm3 (150-450); Red Blood Count 4.56 M/mm3 (4.1-5.4); Red Cell Distribution Width 13.8 % (11.5-14.0); White Blood Count 7.9 K/mm3 (4.0-10.5)
--- NOTE | 2017-07-09 09:25 | ERPHSYRPT ---
- History of Present Illness Time Seen by Provider: 07/09/17 08:32 Historian: patient Patient Subjective Stated Complaint: pt states "I woke up this morning and it felt like I was about to have diarrhea and it was all blood" Triage Nursing Assessment: Pt alert and oriented x 3, skin pwd. pt ambulates with an upright steady gait, able to speak in full clear sentences. Physician History: CC: rectal bleeding Hx: 52 y/o patient of Dr King. She had bright red bloody liquid stool this AM. Some abdominal cramping but no pain. Feels a little dizzy. She had prior rectal bleeding with workup including EGD, colonoscopy, and tagged RBC scan without known etiology several years ago at [facility]. In July she had rectal bleeding and was admitted and saw Dr Coy Martinez. The patient was supposed to have follow up colonoscopy but she states she decided not to follow up after discharge. She takes asa daily but omitted it this AM. She has chronic renal insufficiency. Timing/Duration: today Severity of Pain-Max: moderate Severity of Pain-Current: moderate Allergies/Adverse Reactions: hydrocodone bitartrate [From Vicodin] Allergy (Mild, Verified 06/22/17 17:30) Itching oxycodone [Oxycodone] Allergy (Mild, Verified 06/22/17 17:30) Itching Sulfa (Sulfonamide Antibiotics) [Sulfa(Sulfonamide Antibiotics)] Allergy (Mild, Verified 06/22/17 17:30) Hives codeine Adverse Reaction (Mild, Verified 06/22/17 17:30) Itching meperidine HCl [From Demerol] Adverse Reaction (Mild, Verified 06/22/17 17:30) Vomiting Home Medications: Allopurinol 300 mg [Zyloprim 300 mg] 300 mg PO DAILY 02/16/15 [History] Aspirin 81 mg PO DAILY 02/16/15 [History] Atorvastatin Calcium [Lipitor] 80 mg PO HS 02/16/15 [History] Lisinopril [Zestril] 10 mg PO QAM 02/16/15 [History] Omeprazole 40 mg PO QAM 02/16/15 [History] Ropinirole HCl 1 mg PO HS 02/16/15 [History] Temazepam 30 mg PO HS 02/16/15 [History] Cyanocobalamin 500 Mcg [Vitamin B-12 500 MCG] 2,500 mcg PO QAM 03/04/17 [ History] Iron 65 mg PO BID 03/04/17 [History] Bupropion HCl 150 mg Sr [Wellbutrin SR 150 MG] 150 mg PO BID 07/09/17 [ History] Calcitriol 0.25 mcg PO 3XW 07/09/17 [History] Dextroamphetamine/Amphetamine [Adderall 20 mg Tablet] 20 mg PO BID 07/09/17 [ History] Metoprolol Tartrate 12.5 mg PO BID 07/09/17 [History] Hx Tetanus, Diphtheria Vaccination/Date Given: No Hx Influenza Vaccination/Date Given: Yes Hx Pneumococcal Vaccination/Date Given: Yes Immunizations Up to Date: Yes - Review of Systems Constitutional: No Fever, No Chills, No Malaise Eyes: No Symptoms Ears, Nose, & Throat: No Symptoms Respiratory: No Cough, No Dyspnea Cardiac: No Chest Pain Abdominal/Gastrointestinal: Hematochezia, No Abdominal Pain, No Nausea, No Vomiting, No Diarrhea Genitourinary Symptoms: No Dysuria Skin: No Rash Neurological: No Headache All Other Systems: Reviewed and Negative - Past Medical History Pertinent Past Medical History: Yes Neurological History: Migraines ENT History: No Pertinent History Cardiac History: Angina, Congestive Heart Failure, Coronary Artery Disease, High Cholesterol, Hypertension, Myocardial Infarction ([place]) Respiratory History: Asthma Endocrine Medical History: No Pertinent History Musculoskeletal History: Arthritis GI Medical History: GERD, Gallbladder Disease, GI Bleed History: Renal Disease Psycho-Social History: Anxiety, Depression Female Reproductive Disorders: Abnormal Uterine Bleeding, Endometriosis Other Medical History: GOUT - RLS - Past Surgical History Past Surgical History: Yes Neuro Surgical History: No Pertinent History Cardiac: CABG, Cardiac Catheterization Respiratory: No Pertinent History Gastrointestinal: Cholecystectomy Genitourinary: Kidney Surgery Musculoskeletal: Other Female Surgical History: Hysterectomy Other Surgical History: knee muscle lateral release dwaine , kidney stone removal x 7, hernia repair - Social History Smoking Status: Never smoker Exposure to second hand smoke: No Drug Use: none Patient Lives Alone: No Significant Family History: heart disease, hypertension - Female History Hx Last Menstrual Period: histerectomy Hx Now: No - Nursing Vital Signs Nursing Vital Signs: Initial Vital Signs Temperature 97.8 F 07/09/17 08:35 Pulse Rate 87 07/09/17 08:35 Respiratory Rate 18 10/21/17 08:35 Blood Pressure 138/77 07/09/17 08:35 O2 Sat by Pulse Oximetry 98 07/09/17 08:35 Pain Scale Pain Intensity 0 - Physical Exam General Appearance: alert Eye Exam: PERRL/EOMI Ears, Nose, Throat Exam: normal ENT inspection, moist mucous membranes Neck Exam: normal inspection, non-tender, supple Respiratory Exam: normal breath sounds, lungs clear Cardiovascular Exam: regular rate/rhythm Gastrointestinal/Abdomen Exam: soft, No tenderness, No distention, No mass, No guarding Pelvic Exam: not done Rectal Exam: normal rectal tone, blood (bright red rectal blood, no fissure, no mass, no hemorrhoids) Back Exam: normal inspection Extremity Exam: normal inspection, normal range of motion Neurologic Exam: alert, oriented x 3, cooperative, sensation nml, No motor deficits Skin Exam: warm, dry, No rash SpO2 Interpretation: normal SpO2: 98 Oxygen Delivery: Room Air - Course Nursing assessment & vital signs reviewed: Yes Ordered Tests: Active Orders 24 hr Category Date Time Status IV Insertion STAT Care 07/09/17 08:45 Active NPO (ED) STAT Care 07/09/17 08:45 Active Orthostatic Vital Signs STAT Care 07/09/17 09:34 Active CBC W DIFF Stat Lab 07/09/17 08:58 Completed CMP Stat Lab 07/09/17 08:58 Completed Occult Blood,Stool Other Stat Lab 07/09/17 08:58 Completed PROTIME WITH INR Stat Lab 07/09/17 08:58 Completed PTT Stat Lab 07/09/17 08:58 Completed Medication Summary Generic Name Dose Route Start Last Admin Trade Name Freq PRN Reason Stop Dose Admin Sodium Chloride 1,000 mls @ 100 mls/hr 07/09/17 08:45 07/09/17 09:05 Sodium Chloride 0.9% 1000 Ml IV 08/08/17 08:44 100 mls/hr .Q10H HEIDI Administration Discontinued Medications Generic Name Dose Route Start Last Admin Trade Name Freq PRN Reason Stop Dose Admin Famotidine 20 mg 07/09/17 09:11 07/09/17 09:29 Pepcid 20 Mg Vial IV 07/09/17 09:12 20 mg STAT ONE Administration Famotidine Confirm 07/09/17 09:28 Pepcid 20 Mg Vial Administered 07/09/17 09:29 Dose 20 mg IV .STK-MED ONE Lab/Rad Data: Laboratory Result Diagrams 07/09/17 08:58 07/09/17 08:58 Laboratory Results 07/09/17 07/09/17 07/09/17 Range/Units 08:58 08:58 08:58 WBC 7.9 (4.0-10.5) K/mm3 RBC 4.56 (4.1-5.4) M/mm3 Hgb 13.3 (12.0-16.0) gm/dl Hct 41.9 (35-47) % MCV 91.9 (78-100) fl MCH 29.2 (26-32) pg MCHC 31.7 L (32-36) g/dl RDW 13.8 (11.5-14.0) % Plt Count 291 (150-450) K/mm3 MPV 10.2 H (6-9.5) fl Gran % 64.1 (36.0-66.0) % Lymphocytes % 25.0 (24.0-44.0) % Monocytes % 7.2 (0.0-12.0) % Eosinophils % 3.3 (0.00-5.0) % Basophils % 0.4 (0.0-0.4) % Basophils # 0.03 (0-0.4) INR 1.01 (0.8-3.0) APTT 32.4 (25.3-37.0) SECONDS Sodium 140 (136-145) mEq/L Potassium 4.2 (3.5-5.1) mEq/L Chloride 106 (98-107) mEq/L Carbon Dioxide 23.0 (21-32) mEq/L Anion Gap 15.5 H (5-15) MEQ/L BUN 17 (9-20) mg/dL Creatinine 1.18 (0.55-1.30) mg/dl Estimated GFR 51 ML/MIN Glucose 130 H (70-110) MG/DL Calcium 9.3 (8.5-10.1) mg/dL Total Bilirubin 0.40 (0.2-1.0) mg/dL AST 16 (15-37) U/L ALT 28 (12-78) U/L Alkaline Phosphatase 136 H (46-116) U/L Serum Total Protein 7.0 (6.4-8.2) gm/dL Albumin 3.5 (3.4-5.0) g/dL Stool Occult Blood (Negative) 07/09/17 Range/Units 08:58 WBC (4.0-10.5) K/mm3 RBC (4.1-5.4) M/mm3 Hgb (12.0-16.0) gm/dl Hct (35-47) % MCV (78-100) fl MCH (26-32) pg MCHC (32-36) g/dl RDW (11.5-14.0) % Plt Count (150-450) K/mm3 MPV (6-9.5) fl Gran % (36.0-66.0) % Lymphocytes % (24.0-44.0) % Monocytes % (0.0-12.0) % Eosinophils % (0.00-5.0) % Basophils % (0.0-0.4) % Basophils # (0-0.4) INR (0.8-3.0) APTT (25.3-37.0) SECONDS Sodium (136-145) mEq/L Potassium (3.5-5.1) mEq/L Chloride (98-107) mEq/L Carbon Dioxide (21-32) mEq/L Anion Gap (5-15) MEQ/L BUN (9-20) mg/dL Creatinine (0.55-1.30) mg/dl Estimated GFR ML/MIN Glucose (70-110) MG/DL Calcium (8.5-10.1) mg/dL Total Bilirubin (0.2-1.0) mg/dL AST (15-37) U/L ALT (12-78) U/L Alkaline Phosphatase (46-116) U/L Serum Total Protein (6.4-8.2) gm/dL Albumin (3.4-5.0) g/dL Stool Occult Blood POSITIVE (Negative) - Progress Progress Note: 07/09/17 09:54 Pt stable. Orthostatics showed BP drop and dizziness when standing. No further stool but some bright red blood leaked after rectal. She feels cramping and urge for more stool. Spoke to Dr Harry Ugalde for [facility] and will place in observation for serial H/H and cross match blood on hold. Discussed blood transfusion with pt including risks of infection, allergic reaction. She has had blood in past and understands. Consent signed in case of need for blood which is not necessary at this time but will be on hold. Will see patient in: hospital (observation) Counseled pt/family regarding: lab results, diagnosis, need for follow-up - Departure Time of Disposition: 09:56 Departure Disposition: Observation Clinical Impression: Rectal hemorrhage, Diverticulosis Condition: Fair Critical Care Time: No Referrals: TINA KING [Primary Care Provider] -
[2017-07-09 09:27] LABS: INR 1.01 (0.8-3.0); PROTIME 11.2 SECONDS (9.95-12.35)
[2017-07-09 09:30] LABS: PTT 32.4 SECONDS (25.3-37.0)
[2017-07-09 09:35] LABS: ALBUMIN 3.5 g/dL (3.4-5.0); ANION GAP 15.5 MEQ/L (5-15); BILIRUBIN,TOTAL 0.4 mg/dL (0.2-1.0); Potassium 4.2 mEq/L (3.5-5.1)
[2017-07-09] MEDS ORDERED: NovoLOG Insulin SQ PRN (10:18)
--- NOTE | 2017-07-09 12:48 | PCM.HP ---
History of Present Illness - Chief Complaint Chief Complaint: rectal bleeding Date: 07/09/17 History of Present Illness: is a 52 year old female. with history CAD on aspirin and hx of heavy GI bleeding 7 years ago resulting in transfusions and a less series episode 1 year ago not requiring transfusion with diverticulosis as the suspected source with extensive negative work up 7 years ago and no repeat colonoscopy since presented this am with new onset massive bleeding she states from the rectum. She felt like she needed to have BM but was just blood in the stool. She came to ED where she was found to have bright red blood in rectal vault and passed some additional blood at that time as well and no bleeding since that time. She was weak and dizzy with standing. She is currently feeling well. No abdominal pain or nausea. She was having normal BM yesterday. She is hungry currently. - Review of Systems Constitutional: No Fever, No Chills Eyes: No Symptoms Ears, Nose, & Throat: No Symptoms Respiratory: No Cough, No Short Of Breath Cardiac: No Chest Pain, No Edema, No Syncope Abdominal/Gastrointestinal: Hematochezia, No Abdominal Pain, No Nausea, No Vomiting, No Diarrhea Genitourinary Symptoms: No Dysuria Musculoskeletal: No Back Pain, No Neck Pain Skin: No Rash Neurological: No Dizziness, No Focal Weakness, No Sensory Changes Psychological: No Symptoms Endocrine: No Symptoms Hematologic/Lymphatic: No Symptoms Immunological/Allergic: No Symptoms Medications & Allergies Home Medications: Home Medication List Allopurinol 300 mg [Zyloprim 300 mg] 300 mg PO DAILY 02/16/15 [History Confirmed 07/09/17] Aspirin 81 mg PO DAILY 02/16/15 [History Confirmed 07/09/17] Atorvastatin Calcium [Lipitor] 80 mg PO HS 02/16/15 [History Confirmed 07/09/17] Lisinopril [Zestril] 10 mg PO QAM 02/16/15 [History Confirmed 07/09/17] Omeprazole 40 mg PO QAM 02/16/15 [History Confirmed 07/09/17] Ropinirole HCl 1 mg PO HS 02/16/15 [History Confirmed 07/09/17] Temazepam 30 mg PO HS 02/16/15 [History Confirmed 07/09/17] Hydroxyzine HCl 25 mg [Atarax 25 mg] 50 mg PO HS #0 tablet 07/29/16 [Rx Confirmed 07/09/17] Cyanocobalamin 500 Mcg [Vitamin B-12 500 MCG] 2,500 mcg PO QAM 03/04/17 [ History Confirmed 07/09/17] Iron 65 mg PO BID 03/04/17 [History Confirmed 07/09/17] Bupropion HCl 150 mg Sr [Wellbutrin SR 150 MG] 150 mg PO BID 07/09/17 [ History Confirmed 07/09/17] Calcitriol 0.25 mcg PO UD 07/09/17 [History Confirmed 07/09/17] Dextroamphetamine/Amphetamine [Adderall 20 mg Tablet] 20 mg PO BID 07/09/17 [ History Confirmed 07/09/17] Metoprolol Tartrate 12.5 mg PO BID 07/09/17 [History Confirmed 07/09/17] Allergies/Adverse Reactions: Allergies Allergy/AdvReac Type Severity Reaction Status Date / Time hydrocodone bitartrate Allergy Mild Itching Verified 06/22/17 17:30 [From Vicodin] oxycodone [Oxycodone] Allergy Mild Itching Verified 06/22/17 17:30 Sulfa (Sulfonamide Allergy Mild Hives Verified 06/22/17 17:30 Antibiotics) [Sulfa(Sulfonamide Antibiotics)] codeine AdvReac Mild Itching Verified 06/22/17 17:30 meperidine HCl [From Demerol] AdvReac Mild Vomiting Verified 06/22/17 17:30 - Past Medical History Past Medical History: Yes Neurological History: Migraines ENT History: No Pertinent History Cardiac History: Angina, Congestive Heart Failure, Coronary Artery Disease, High Cholesterol, Hypertension, Myocardial Infarction ([place]) Respiratory History: Sleep Apnea Endocrine Medical History: No Pertinent History Musculoskelatal History: Arthritis GI Medical History: GERD, Gallbladder Disease, GI Bleed History: Renal Disease, Other Pyscho-Social History: Anxiety, Depression Reproductive Disorders: Abnormal Uterine Bleeding, Endometriosis Comment: Renal calculus. GOUT - RLS - Female History Hx Last Menstrual Period: hysterectomy Are you now?: No - Past Surgical History Past Surgical History: Yes Neuro Surgical History: No Pertinent History Cardiac History: CABG (2002 5 vessel), Cardiac Catheterization Respiratory Surgery: No Pertinent History GI Surgical History: Cholecystectomy Genitourinary Surgical Hx: Kidney Surgery Musculskeletal Surgical Hx: Other Female Surgical History: Hysterectomy Other Surgical History: knee muscle lateral release dwaine , kidney stone removal x 7, hernia repair - Social History Smoking Status: Never smoker Exposure to second hand smoke: No Alcohol: None Drug Use: none Significant Family History: heart disease, hypertension - Physical Exam Vital Signs: Vital Signs - 24 hr Temp Pulse Resp BP Pulse Ox 07/09/17 12:00 98.2 F 64 18 121/82 95 07/09/17 11:05 98.2 F 64 18 121/82 95 07/09/17 09:57 98 07/09/17 09:41 97.9 F 70 18 117/89 98 07/09/17 08:35 97.8 F 87 18 138/77 98 General Appearance: no apparent distress, alert, obese Neurologic Exam: alert, oriented x 3, cooperative, normal mood/affect, nml cerebellar function, sensation nml, No motor deficits Eye Exam: PERRL/EOMI, eyes nml inspection Ears, Nose, Throat Exam: normal ENT inspection, pharynx normal, moist mucous membranes Neck Exam: normal inspection, non-tender, supple, full range of motion Respiratory Exam: normal breath sounds, lungs clear, No respiratory distress Cardiovascular Exam: regular rate/rhythm, normal heart sounds, normal peripheral pulses Gastrointestinal/Abdomen Exam: soft, normal bowel sounds, No tenderness, No mass Back Exam: normal inspection, normal range of motion, No CVA tenderness, No vertebral tenderness Extremity Exam: normal inspection, normal range of motion, pelvis stable Skin Exam: normal color, warm, dry, No rash Lymphatic Exam: No adenopathy Assessment/Plan (1) GI (gastrointestinal hemorrhage) Current Visit: Yes Status: Acute Qualifiers: GI bleed type/associated pathology: diverticulosis Qualified Code(s): K57.91 - Diverticulosis of intestine, part unspecified, without perforation or abscess with bleeding Assessment & Plan: will hold her aspirin tele seriel q6h H and H monitor for blood loss type and crossed and held 2 U PRBC observation hold lisinopril with orthostatic symptoms improving now will add clear liquid diet. Code(s): K92.2 - GASTROINTESTINAL HEMORRHAGE, UNSPECIFIED (2) Diverticulosis Current Visit: Yes Status: Acute Code(s): K57.90 - DVRTCLOS OF INTEST, PART UNSP, W/O PERF OR ABSCESS W/O BLEED (3) CAD (coronary artery disease) Current Visit: Yes Status: Chronic Code(s): I25.10 - ATHSCL HEART DISEASE OF [place] CORONARY ARTERY W/O ANG PCTRS (4) Hypertension Current Visit: Yes Status: Chronic Code(s): I10 - ESSENTIAL (PRIMARY) HYPERTENSION (5) Hyperlipidemia Current Visit: Yes Status: Chronic Code(s): E78.5 - HYPERLIPIDEMIA, UNSPECIFIED
[2017-07-09 13:07] LABS: BASOPHIL % 0.2 % (0.0-0.4); Eosinophil % 2.6 % (0.00-5.0); Granulocytes % 62.9 % (36.0-66.0); Lymphocytes % 26.9 % (24.0-44.0); Mean Cell Volume 92.2 fl (78-100); Monocytes % 7.4 % (0.0-12.0); Platelet Count 273 K/mm3 (150-450); Red Blood Count 4.36 M/mm3 (4.1-5.4); Red Cell Distribution Width 13.9 % (11.5-14.0); White Blood Count 8.2 K/mm3 (4.0-10.5)
[2017-07-09] MEDS ORDERED: TEMAZEPAM 30 MG PO PRN (13:45)
[2017-07-09] MEDS ORDERED: Restoril 15 MG PO PRN (13:53)
[2017-07-09] MEDS: TYLENOL 325 MG PO PRN ×2 (15:56→21:20)
[2017-07-09] MEDS: Sodium Chloride 0.9% 1000 ML 1,000 ML IV SCH ×2 (16:08→18:12)
[2017-07-09] MEDS: ZOCOR 20MG PO SCH (21:20)
[2017-07-09] MEDS: FEOSOL 325 MG PO SCH (21:21)
[2017-07-09] MEDS: Lopressor 25MG Tab PO SCH (21:21)
[2017-07-09] MEDS: Wellbutrin SR 150 MG PO SCH (21:21)
[2017-07-09] MEDS: Pepcid 20 MG VIAL IV SCH (21:22)
[2017-07-09] MEDS ORDERED: NON-FORMULARY ITEM (Iron [Iron] 65 MG) PO SCH (22:00)
[2017-07-09] MEDS ORDERED: NON-FORMULARY ITEM (Atorvastatin Calcium [Lipitor] 80 MG) PO SCH (22:00)
[2017-07-09] MEDS ORDERED: NON-FORMULARY ITEM (Ropinirole Hcl [Ropinirole Hcl] 1 MG) PO SCH (22:00)
[2017-07-09] MEDS: Requip 0.5 MG PO SCH (22:44)
[2017-07-09] MEDS: ATARAX 25 MG PO SCH (22:44)
[2017-07-10] MEDS: Sodium Chloride 0.9% 1000 ML 1,000 ML IV SCH (04:11)
[2017-07-10] MEDS ORDERED: TYLENOL 325 MG ONE (05:54)
[2017-07-10] MEDS: TYLENOL 325 MG PO PRN (05:56)
[2017-07-10 06:03] LABS: BASOPHIL % 0.3 % (0.0-0.4); Eosinophil % 3.4 % (0.00-5.0); Granulocytes % 51.3 % (36.0-66.0); Lymphocytes % 35.7 % (24.0-44.0); Mean Cell Volume 92.6 fl (78-100); Mean Platelet Volume 10.3 fl (6-9.5); Monocytes % 9.3 % (0.0-12.0); Platelet Count 268 K/mm3 (150-450); Red Blood Count 3.76 M/mm3 (4.1-5.4); Red Cell Distribution Width 13.9 % (11.5-14.0); White Blood Count 7.1 K/mm3 (4.0-10.5)
[2017-07-10 06:04] LABS: Mean Corpuscular Hemoglobin 29.2 pg (26-32)
[2017-07-10] MEDS: Lopressor 25MG Tab PO SCH ×2 (09:38→22:32)
[2017-07-10] MEDS: Protonix 40MG Tablet PO SCH (09:38)
[2017-07-10] MEDS: Wellbutrin SR 150 MG PO SCH ×2 (09:38→22:35)
[2017-07-10] MEDS: FEOSOL 325 MG PO SCH ×2 (09:38→22:32)
[2017-07-10] MEDS: ZYLOPRIM 300 MG PO SCH (09:39)
[2017-07-10] MEDS: Vitamin B-12 500 MCG PO SCH (09:39)
[2017-07-10] MEDS: Pepcid 20 MG VIAL IV SCH ×2 (09:40→22:52)
--- NOTE | 2017-07-10 09:52 | PCM.NOTE ---
Date and Time: 07/10/17948 Subjective Assessment: She had no bleeding yesterday during day but in the evening at 2000 and 2300 she had 2 large bloody bowel movements witnessed. with no pain nausea vomiting. She has not had any since. She is no longer having any weakness or dizziness but is having a mild headache from not sleeping, eating or drinking caffeine. Objective Exam General Appearance: no apparent distress Neurologic Exam: alert, oriented x 3, cooperative Skin Exam: warm, dry Ears, Nose, Throat Exam: moist mucous membranes Neck Exam: non-tender, supple Respiratory Exam: lungs clear Cardiovascular Exam: regular rate/rhythm, normal heart sounds Gastrointestinal/Abdomen Exam: soft, normal bowel sounds, No tenderness, No distention, No mass Extremity Exam: normal inspection, No calf tenderness, No pedal edema OBJECTIVE DATA Vital Signs: Vital Signs - 24 hr Temp Pulse Resp BP Pulse Ox 07/10/17 06:52 98.5 F 80 16 142/66 94 L 07/10/17 06:00 97.6 F 75 18 114/68 97 07/10/17 04:00 97.9 F 70 18 116/63 94 L 07/10/17 02:00 97.9 F 70 18 116/63 94 L 07/09/17 23:50 97.9 F 70 18 116/63 94 L 07/09/17 19:51 98.2 F 71 16 137/73 96 07/09/17 17:22 98.5 F 75 20 121/77 98 07/09/17 16:00 98.2 F 69 20 125/76 96 07/09/17 14:00 97.9 F 75 18 127/74 100 07/09/17 12:00 98.2 F 64 18 121/82 95 07/09/17 11:05 98.2 F 64 18 121/82 95 07/09/17 09:57 98 Pain Assessment - Last Documented Pain Intensity 2 Pain Scale Used 0-10 Pain Scale Intake and Output: Intake & Output 07/07/17 07/08/17 07/09/17 07/10/17 11:59 11:59 11:59 11:59 Intake Total 2419 Balance 2419 Weight 117.208 kg Lab Results: Lab Results-Last 24 Hours 07/09/17 07/09/17 07/10/17 Range/Units 13:00 19:42 01:06 WBC 8.2 (4.0-10.5) K/mm3 RBC 4.36 (4.1-5.4) M/mm3 Hgb 13.1 12.3 11.1 L (12.0-16.0) gm/dl Hct 40.2 38.5 34.8 L (35-47) % MCV 92.2 (78-100) fl MCH 30.0 (26-32) pg MCHC 32.6 (32-36) g/dl RDW 13.9 (11.5-14.0) % Plt Count 273 (150-450) K/mm3 MPV 10.0 H (6-9.5) fl Gran % 62.9 (36.0-66.0) % Lymphocytes % 26.9 (24.0-44.0) % Monocytes % 7.4 (0.0-12.0) % Eosinophils % 2.6 (0.00-5.0) % Basophils % 0.2 (0.0-0.4) % Basophils # 0.02 (0-0.4) 07/10/17 Range/Units 05:40 WBC 7.1 (4.0-10.5) K/mm3 RBC 3.76 L (4.1-5.4) M/mm3 Hgb 11.0 L (12.0-16.0) gm/dl Hct 34.8 L (35-47) % MCV 92.6 (78-100) fl MCH 29.2 (26-32) pg MCHC 31.6 L (32-36) g/dl RDW 13.9 (11.5-14.0) % Plt Count 268 (150-450) K/mm3 MPV 10.3 H (6-9.5) fl Gran % 51.3 (36.0-66.0) % Lymphocytes % 35.7 (24.0-44.0) % Monocytes % 9.3 (0.0-12.0) % Eosinophils % 3.4 (0.00-5.0) % Basophils % 0.3 (0.0-0.4) % Basophils # 0.02 (0-0.4) Assessment/Plan (1) GI (gastrointestinal hemorrhage) Current Visit: Yes Status: Acute Qualifiers: GI bleed type/associated pathology: diverticulosis Qualified Code(s): K57.91 - Diverticulosis of intestine, part unspecified, without perforation or abscess with bleeding Assessment & Plan: with the large bloody bms last night will continue observe on tele monitor H and H dropped 2 points d/c iv fluids tolerating clears well with no bleeding now in over 12 hours will see if can tolerate regular diet hopeful for home when the major bleeding subsides with outpatient f/u for colonoscopy Code(s): K92.2 - GASTROINTESTINAL HEMORRHAGE, UNSPECIFIED (2) Diverticulosis Current Visit: Yes Status: Acute Code(s): K57.90 - DVRTCLOS OF INTEST, PART UNSP, W/O PERF OR ABSCESS W/O BLEED (3) CAD (coronary artery disease) Current Visit: Yes Status: Chronic Code(s): I25.10 - ATHSCL HEART DISEASE OF [place] CORONARY ARTERY W/O ANG PCTRS (4) Hypertension Current Visit: Yes Status: Chronic Code(s): I10 - ESSENTIAL (PRIMARY) HYPERTENSION (5) Hyperlipidemia Current Visit: Yes Status: Chronic Code(s): E78.5 - HYPERLIPIDEMIA, UNSPECIFIED
[2017-07-10] MEDS ORDERED: NON-FORMULARY ITEM (Omeprazole [Omeprazole] 40 MG) PO SCH (10:00)
[2017-07-10] MEDS: Phenergan 25 MG INJ IV PRN ×2 (10:12→14:17)
[2017-07-10] MEDS: ATARAX 25 MG PO SCH (22:32)
[2017-07-10] MEDS: ZOCOR 20MG PO SCH (22:35)
[2017-07-10] MEDS: Requip 0.5 MG PO SCH (22:35)
[2017-07-11 05:50] LABS: ANION GAP 13.9 MEQ/L (5-15); Carbon Dioxide 26.2 mEq/L (21-32); Potassium 3.8 mEq/L (3.5-5.1)
[2017-07-11 07:09] VITALS: BP 97/52; PULSE 80; O2SAT 96
--- NOTE | 2017-07-11 08:25 | PCM.DCORD ---
- Discharge Discharge Date: 07/11/17 Disposition: Home, Self-Care Condition: Good Prescriptions: New Ferrous Sulfate 325 mg [Feosol 325 mg] 325 mg PO TID #90 tablet Continue Ropinirole HCl 1 mg PO HS Atorvastatin Calcium [Lipitor] 80 mg PO HS Omeprazole 40 mg PO QAM Allopurinol 300 mg [Zyloprim 300 mg] 300 mg PO DAILY Temazepam 30 mg PO HS Aspirin 81 mg PO DAILY Hydroxyzine HCl 25 mg [Atarax 25 mg] 50 mg PO HS #0 tablet Cyanocobalamin 500 Mcg [Vitamin B-12 500 MCG] 2,500 mcg PO QAM Bupropion HCl 150 mg Sr [Wellbutrin SR 150 MG] 150 mg PO BID Dextroamphetamine/Amphetamine [Adderall 20 mg Tablet] 20 mg PO BID Metoprolol Tartrate 12.5 mg PO BID Calcitriol 0.25 mcg PO UD #15 capsule Discontinued Lisinopril [Zestril] 10 mg PO QAM Iron 65 mg PO BID Follow up with: TINA KING [Primary Care Provider] - BERENICE BRITO MD [ACTIVE STAFF] - 1 Week Forms: Patient Portal Information
--- NOTE | 2017-07-11 09:10 | DS ---
DISCHARGE DIAGNOSES: 1) HEMATOCHEZIA. 2) HYPERTENSION. DISCHARGE PHYSICAL EXAMINATION: VITALS: Temperature current 98.4F, temperature max 98.5F, heart rate 64 to 80, respiratory rate 16 to 18, blood pressure 90 to 142 over 52 to 66. Oxygen saturation 94 to 96% on room air. GENERAL: The patient is a pleasant, talkative lady sitting up in no acute distress. CVS: She has a regular rate and rhythm. No murmurs, gallops or rubs are appreciated. CHEST: Clear to auscultation bilaterally. No crackles or wheezes. ABDOMEN: Soft, nontender, nondistended with normal bowel sounds. EXTREMITIES: No clubbing, cyanosis or edema. SKIN: Warm, dry and intact. HOSPITAL COURSE: 1) HEMATOCHEZIA: She has witnessed large bloody stools here in the hospital. She has not had any for over 24 hours. Her hemoglobin on admission was 12.3 and now is 11.6 and has been stable for the past 24 hours. She has had serial hemoglobin. She denies any bloody stools for the past 24 hours. She did have hemoccult that was positive. In the emergency department the emergency room doctor had done a rectal exam in the emergency room that had bright red bloody, no fissures, no mass or hemorrhoids. The patient reports that in the past she was supposed to follow up with Dr. Carine Martinez for further evaluation in the past but had not and she is going to do this at this time so will make a follow up with Dr. Carine Martinez when the patient can see her for consultation about an outpatient colonoscopy. 2) HYPERTENSION: Her lisinopril was held during her hospitalization. Her blood pressure was low under normal but she denies any dizziness or lightheadedness. She states she was able to take a shower at 0400 hours so will send her home on her home dose of metoprolol. Of note, her stimulant has been held during her hospitalization this is maybe why her blood pressure is lower. DISCHARGE MEDICATIONS: We are resuming her home medications except for lisinopril. She is starting ferrous sulfate 325 mg t.i.d. She also asked for a refill on her Calcitriol which Dr. Singh usually prescribes. FOLLOW UP: She is to follow up with me within one week and see Dr. Carine Martinez for consultation. DISPOSITION: The patient was discharged to home in good condition.
[2017-07-11] MEDS: Wellbutrin SR 150 MG PO SCH (09:33)
[2017-07-11] MEDS: Protonix 40MG Tablet PO SCH (09:33)
[2017-07-11] MEDS: ZYLOPRIM 300 MG PO SCH (09:33)
[2017-07-11] MEDS: FEOSOL 325 MG PO SCH (09:33)
[2017-07-11] MEDS: Vitamin B-12 500 MCG PO SCH (09:34)
[2017-07-11] MEDS: Pepcid 20 MG VIAL IV SCH (09:36)
[2017-07-11] MEDS: Lopressor 25MG Tab PO SCH (09:36)
== END 2017-07-11 11:15 | disposition home or self-care (01) ==
LOC: ED 08:23 → MED SURG 10:15
PROVIDERS: ADMIT Family Medicine; ATTEND Internal Medicine
DX: K92.1 Melena (principal); I10 Essential (primary) hypertension; K57.91 Diverticulosis of intestine, part unspecified, without perforation or abscess with bleeding; I25.10 Atherosclerotic heart disease of native coronary artery without angina pectoris; E78.5 Hyperlipidemia, unspecified; R51 Headache
CPT/HCPCS: 36000; 36415; 80048; 80053; 82272; 82962; 85014; 85018; 85025; 85610; 85730; 86850; 86900; 86901; 86922; 93268; 96360; 96361; 99285; G0378; J2550; A9270-GY

== ENCOUNTER 2018-01-23 17:40 | Emergency (ER) | payer OTHER | END 2018-01-23 18:00 | disposition left against medical advice (07) | LOC: ED 17:40 | DX: Z53.9 Procedure and treatment not carried out, unspecified reason (principal) | CPT/HCPCS: 99281 ==

== ENCOUNTER 2018-08-24 15:41 | Emergency (ER) | payer OTHER ==
--- NOTE | 2018-08-24 16:24 | ERPHSYRPT ---
- History of Present Illness Time Seen by Provider: 08/24/18 16:19 Source: patient Patient Subjective Stated Complaint: Pt states "I have no insurance, I am behind on my medicines, I have kidney problems, sometimes I think about suicide just to make it all go away." Triage Nursing Assessment: Pt alert and oriented X 3, skin pwd. PT tearful, no respiratory distress, ambulates with an upright steady gait, able to speak in clear full sentences. Physician History: 53 y/o white female presents with suicidal thoughts. she wants it all to end. she is overwhelmed by medical condition, her medical bills, no insurance, financial situation. pt cant stop thinking about killing herself. does not have a plan Severity of Symptoms-Max: moderate Severity of Symptoms-Current: moderate Context related to: living circumstances, other (medical problems) Suicidal thoughts: other (thoughts only; no plan) Associated Symptoms: anxiety, depressed Previous symptoms: same symptoms as today Allergies/Adverse Reactions: hydrocodone bitartrate [From Vicodin] Allergy (Mild, Verified 06/22/17 17:30) Itching oxycodone [Oxycodone] Allergy (Mild, Verified 06/22/17 17:30) Itching Sulfa (Sulfonamide Antibiotics) [Sulfa(Sulfonamide Antibiotics)] Allergy (Mild, Verified 06/22/17 17:30) Hives codeine Adverse Reaction (Mild, Verified 06/22/17 17:30) Itching meperidine HCl [From Demerol] Adverse Reaction (Mild, Verified 06/22/17 17:30) Vomiting Home Medications: Allopurinol 300 mg [Zyloprim 300 mg] 300 mg PO DAILY 02/16/15 [History] Aspirin 81 mg PO DAILY 02/16/15 [History] Atorvastatin Calcium [Lipitor] 80 mg PO HS 02/16/15 [History] Omeprazole 40 mg PO QAM 02/16/15 [History] Ropinirole HCl 1 mg PO HS 02/16/15 [History] Temazepam 30 mg PO HS 02/16/15 [History] Cyanocobalamin 500 Mcg [Vitamin B-12 500 MCG] 2,500 mcg PO QAM 03/04/17 [ History] Bupropion HCl 150 mg Sr [Wellbutrin SR 150 MG] 150 mg PO BID 07/09/17 [ History] Dextroamphetamine/Amphetamine [Adderall 20 mg Tablet] 20 mg PO BID 07/09/17 [ History] Metoprolol Tartrate 12.5 mg PO BID 07/09/17 [History] Hx Tetanus, Diphtheria Vaccination/Date Given: Yes Hx Influenza Vaccination/Date Given: No Hx Pneumococcal Vaccination/Date Given: Yes Immunizations Up to Date: Yes - Past Medical History Pertinent Past Medical History: Yes Neurological History: Migraines ENT History: No Pertinent History Cardiac History: Angina, Congestive Heart Failure, Coronary Artery Disease, High Cholesterol, Hypertension, Myocardial Infarction (PR) Respiratory History: Sleep Apnea Endocrine Medical History: No Pertinent History Musculoskeletal History: Arthritis GI Medical History: GERD, Gallbladder Disease, GI Bleed History: Renal Disease, Other Psycho-Social History: Anxiety, Depression Female Reproductive Disorders: Abnormal Uterine Bleeding, Endometriosis Other Medical History: Renal calculus. GOUT - RLS - Past Surgical History Past Surgical History: Yes Neuro Surgical History: No Pertinent History Cardiac: CABG, Cardiac Catheterization Respiratory: No Pertinent History Gastrointestinal: Cholecystectomy Genitourinary: Kidney Surgery Musculoskeletal: Other Female Surgical History: Hysterectomy Other Surgical History: knee muscle lateral release dwaine , kidney stone removal x 7, hernia repair - Social History Smoking Status: Never smoker Exposure to second hand smoke: No Drug Use: none Patient Lives Alone: Yes Significant Family History: heart disease, hypertension - Female History Hx Last Menstrual Period: hysterectomy Hx Now: No - Review of Systems Constitutional: No Symptoms Eyes: No Symptoms Ears, Nose, & Throat: No Symptoms Respiratory: No Symptoms Cardiac: No Symptoms Abdominal/Gastrointestinal: No Symptoms Genitourinary Symptoms: No Symptoms Musculoskeletal: No Symptoms Skin: No Symptoms Neurological: No Symptoms Psychological: Anxiety, Depression, Suicidal Ideations Endocrine: No Symptoms Hematologic/Lymphatic: No Symptoms Immunological/Allergic: No Symptoms All Other Systems: Reviewed and Negative - Nursing Vital Signs Nursing Vital Signs: Initial Vital Signs Temperature 98.9 F 08/24/18 15:59 Pulse Rate 62 08/24/18 15:59 Respiratory Rate 16 08/24/18 15:59 Blood Pressure 169/88 08/24/18 15:59 O2 Sat by Pulse Oximetry 99 08/24/18 15:59 Pain Scale Pain Intensity 4 - Physical Exam General Appearance: mild distress, alert, anxiety Eyes, Ears, Nose, Throat Exam: normal ENT inspection Neck Exam: normal inspection, non-tender, supple, full range of motion Respiratory Exam: normal breath sounds, lungs clear, airway intact, No chest tenderness, No respiratory distress, No accessory muscle use, No rhonchi, No wheezing, No stridor Cardiovascular Exam: regular rate/rhythm, normal heart sounds, normal peripheral pulses Gastrointestinal/Abdominal Exam: soft, normal bowel sounds, No tenderness, No guarding, No rebound Extremities Exam: normal inspection, normal range of motion Neurological Exam: alert, anxious, depressed affect Appearance: appropriate appearance Behavior/Eye Contact/Speech: alert & cooperative, good eye contact Thoughts/Hallucinations: normal thought pattern, no apparent hallucination Skin Exam: normal color, warm SpO2 Interpretation: normal SpO2: 99 Oxygen Delivery: Room Air - Course Nursing assessment & vital signs reviewed: Yes EKG Interpreted by Me: RATE (52), Sinus Rhythm, NORMAL AXIS, NORMAL INTERVALS, NORMAL QRS, Right Bundle Branch Block Ordered Tests: Active Orders 24 hr Category Date Time Status Clean Catch Urine Specimen STAT Care 08/24/18 16:31 Active EKG-ER Only STAT Care 08/24/18 16:31 Active Psychiatric Consult STAT Cons 08/24/18 16:31 Active ACETAMINOPHEN Stat Lab 08/24/18 17:15 Completed CBC W DIFF Stat Lab 08/24/18 17:15 Completed CMP Stat Lab 08/24/18 17:15 Completed CULTURE,URINE Stat Lab 08/24/18 17:17 Received ETHYL ALCOHOL Stat Lab 08/24/18 17:15 Completed SALICYLATE Stat Lab 08/24/18 17:15 Completed UA W/RFX UR CULTURE Stat Lab 08/24/18 17:17 Completed Urine Triage Profile Stat Lab 08/24/18 17:17 Completed Lab/Rad Data: Laboratory Result Diagrams 08/24/18 17:15 08/24/18 17:15 Laboratory Results 08/24/18 08/24/18 08/24/18 Range/Units 17:17 17:17 17:15 WBC (4.0-10.5) K/mm3 RBC (4.1-5.4) M/mm3 Hgb (12.0-16.0) gm/dl Hct (35-47) % MCV (78-100) fl MCH (26-32) pg MCHC (32-36) g/dl RDW (11.5-14.0) % Plt Count (150-450) K/mm3 MPV (6-9.5) fl Gran % (36.0-66.0) % Eos # (Auto) (0-0.5) Absolute Lymphs (auto) (1.0-4.6) Absolute Monos (auto) (0.0-1.3) Lymphocytes % (24.0-44.0) % Monocytes % (0.0-12.0) % Eosinophils % (0.00-5.0) % Basophils % (0.0-0.4) % Absolute Granulocytes (1.4-6.9) Basophils # (0-0.4) Sodium 142 (137-145) mmol/L Potassium 4.1 (3.5-5.1) mmol/L Chloride 108 H (98-107) mmol/L Carbon Dioxide 23 (22-30) mmol/L Anion Gap 16.4 H (5-15) MEQ/L BUN 15 (7-17) mg/dL Creatinine 0.90 (0.52-1.04) mg/dL Estimated GFR > 60.0 ML/MIN Glucose 114 H (74-106) mg/dL Calcium 9.7 (8.4-10.2) mg/dL Total Bilirubin 0.50 (0.2-1.3) mg/dL AST 29 (14-36) U/L ALT 28 (0-35) U/L Alkaline Phosphatase 110 (38-126) U/L Serum Total Protein 7.9 (6.3-8.2) g/dL Albumin 4.6 (3.5-5.0) g/dL Urine Color YELLOW (YELLOW) Urine Appearance CLEAR (CLEAR) Urine pH 5.0 (5-6) Ur Specific Lindsay 1.015 (1.005-1.025) Urine Protein 30 (Negative) Urine Ketones NEGATIVE (NEGATIVE) Urine Blood SMALL (0-5) Zain/ul Urine Nitrite NEGATIVE (NEGATIVE) Urine Bilirubin NEGATIVE (NEGATIVE) Urine Urobilinogen NEGATIVE (0-1) mg/dL Ur Leukocyte Esterase NEGATIVE (NEGATIVE) Urine WBC (Auto) NONE (0-5) /HPF Urine RBC (Auto) NONE (0-2) /HPF U Hyaline Cast (Auto) 0-2 (0-2) /LPF U Epithel Cells (Auto) NONE (FEW) /HPF Urine Bacteria (Auto) NONE (NEGATIVE) /HPF Urine Mucus (Auto) SLIGHT (NEGATIVE) /HPF Urine Culture Reflexed YES (NO) Urine Glucose NEGATIVE (NEGATIVE) mg/dL Salicylates < 1.0 L (2-20) mg/dL Urine Opiates Level NEGATIVE (NEGATIVE) Ur Methadone NEGATIVE (NEGATIVE) Acetaminophen < 10 L (10-30) ug/ml Urine Barbiturates NEGATIVE (NEGATIVE) Ur Phencyclidine (PCP) NEGATIVE (NEGATIVE) Urine Amphetamine NEGATIVE (NEGATIVE) U Benzodiazepine Level NEGATIVE (NEGATIVE) Urine Cocaine NEGATIVE (NEGATIVE) Urine Marijuana (THC) NEGATIVE (NEGATIVE) Ethyl Alcohol < 10 (0-10) mg/dL 08/24/18 Range/Units 17:15 WBC 8.6 (4.0-10.5) K/mm3 RBC 4.95 (4.1-5.4) M/mm3 Hgb 14.7 (12.0-16.0) gm/dl Hct 45.3 (35-47) % MCV 91.5 (78-100) fl MCH 29.7 (26-32) pg MCHC 32.5 (32-36) g/dl RDW 14.0 (11.5-14.0) % Plt Count 159 (150-450) K/mm3 MPV 11.5 H (6-9.5) fl Gran % 54.6 (36.0-66.0) % Eos # (Auto) 0.64 H (0-0.5) Absolute Lymphs (auto) 2.61 (1.0-4.6) Absolute Monos (auto) 0.63 (0.0-1.3) Lymphocytes % 30.4 (24.0-44.0) % Monocytes % 7.3 (0.0-12.0) % Eosinophils % 7.5 H (0.00-5.0) % Basophils % 0.2 (0.0-0.4) % Absolute Granulocytes 4.68 (1.4-6.9) Basophils # 0.02 (0-0.4) Sodium (137-145) mmol/L Potassium (3.5-5.1) mmol/L Chloride (98-107) mmol/L Carbon Dioxide (22-30) mmol/L Anion Gap (5-15) MEQ/L BUN (7-17) mg/dL Creatinine (0.52-1.04) mg/dL Estimated GFR ML/MIN Glucose (74-106) mg/dL Calcium (8.4-10.2) mg/dL Total Bilirubin (0.2-1.3) mg/dL AST (14-36) U/L ALT (0-35) U/L Alkaline Phosphatase (38-126) U/L Serum Total Protein (6.3-8.2) g/dL Albumin (3.5-5.0) g/dL Urine Color (YELLOW) Urine Appearance (CLEAR) Urine pH (5-6) Ur Specific Lindsay (1.005-1.025) Urine Protein (Negative) Urine Ketones (NEGATIVE) Urine Blood (0-5) Zain/ul Urine Nitrite (NEGATIVE) Urine Bilirubin (NEGATIVE) Urine Urobilinogen (0-1) mg/dL Ur Leukocyte Esterase (NEGATIVE) Urine WBC (Auto) (0-5) /HPF Urine RBC (Auto) (0-2) /HPF U Hyaline Cast (Auto) (0-2) /LPF U Epithel Cells (Auto) (FEW) /HPF Urine Bacteria (Auto) (NEGATIVE) /HPF Urine Mucus (Auto) (NEGATIVE) /HPF Urine Culture Reflexed (NO) Urine Glucose (NEGATIVE) mg/dL Salicylates (2-20) mg/dL Urine Opiates Level (NEGATIVE) Ur Methadone (NEGATIVE) Acetaminophen (10-30) ug/ml Urine Barbiturates (NEGATIVE) Ur Phencyclidine (PCP) (NEGATIVE) Urine Amphetamine (NEGATIVE) U Benzodiazepine Level (NEGATIVE) Urine Cocaine (NEGATIVE) Urine Marijuana (THC) (NEGATIVE) Ethyl Alcohol (0-10) mg/dL - Progress Progress: improved, re-examined Progress Note: 08/24/18 20:03 mita from [facility] performed a face to face examination of this pt. she staffed the case with her physician. they agree pt requires inpt therapy. however, they are full and no beds available. case was then staffed with [facility] and they accept pt for admission and transfer. Counseled pt/family regarding: lab results, diagnosis - Departure Time of Disposition: 20:05 Departure Disposition: Transfer Clinical Impression: Suicide ideation, Depression Condition: Stable Critical Care Time: No Referrals: TINA KING [Primary Care Provider] -
[2018-08-24 17:32] LABS: BASOPHIL % 0.2 % (0.0-0.4); Basophil (Absolute #) 0.02 (0-0.4); Eosinophil % 7.5 % (0.00-5.0); Eosinophil (Absolute #) 0.64 (0-0.5); Granulocyte Absolute (ANC) 4.68 (1.4-6.9); Granulocytes % 54.6 % (36.0-66.0); Hematocrit 45.3 % (35-47); Hemoglobin 14.7 gm/dl (12.0-16.0); Lymphocyte (Absolute #) 2.61 (1.0-4.6); Lymphocytes % 30.4 % (24.0-44.0); Mean Cell Volume 91.5 fl (78-100); Mean Corpuscular Hemoglobin 29.7 pg (26-32); Mean Corpuscular Hgb Concent. 32.5 g/dl (32-36); Mean Platelet Volume 11.5 fl (6-9.5); Monocyte (Absolute #) 0.63 (0.0-1.3); Monocytes % 7.3 % (0.0-12.0); Platelet Count 159 K/mm3 (150-450); Red Blood Count 4.95 M/mm3 (4.1-5.4); White Blood Count 8.6 K/mm3 (4.0-10.5)
[2018-08-24 17:49] LABS: Amphetamine,Urine NEGATIVE (NEGATIVE); Barbiturate,Urine NEGATIVE (NEGATIVE); Benzodiazepine,Urine NEGATIVE (NEGATIVE); Cocaine,Urine NEGATIVE (NEGATIVE); Methadone,Urine NEGATIVE (NEGATIVE); Opiate,Urine NEGATIVE (NEGATIVE); PCP,Urine NEGATIVE (NEGATIVE); THC,Urine NEGATIVE (NEGATIVE)
[2018-08-24 17:52] LABS: Appearance CLEAR (CLEAR); Bilirubin NEGATIVE (NEGATIVE); Blood SMALL Ery/ul (0-5); Glucose NEGATIVE (NEGATIVE); Ketones NEGATIVE (NEGATIVE); Leukocyte Esterase NEGATIVE (NEGATIVE); Nitrite NEGATIVE (NEGATIVE); Protein,Urine Dip 30 (Negative); Specific Gravity 1.015 (1.005-1.025); Urobilinogen NEGATIVE mg/dL (0-1)
[2018-08-24 17:56] LABS: ALBUMIN 4.6 g/dL (3.5-5.0); ALKALINE PHOSPHATASE 110 U/L (38-126); ANION GAP 16.4 MEQ/L (5-15); BLOOD UREA NITROGEN 15 mg/dL (7-17); CHLORIDE 108 mmol/L (98-107); Calcium 9.7 mg/dL (8.4-10.2); Carbon Dioxide 23 mmol/L (22-30); Glucose 114 mg/dL (74-106); Potassium 4.1 mmol/L (3.5-5.1); SGOT/AST 29 U/L (14-36); SGPT/ALT 28 U/L (0-35); SODIUM 142 mmol/L (137-145); Total Protein 7.9 g/dL (6.3-8.2)
[2018-08-24 17:58] LABS: ACETAMINOPHEN < 10 ug/ml (10-30); ETHYL ALCOHOL < 10 mg/dL (0-10); SALICYLATE < 1.0 mg/dL (2-20)
[2018-08-24 18:44] VITALS: BP 150/40; PULSE 79
[2018-08-24 20:05] VITALS: O2SAT 99
== END 2018-08-24 21:35 ==
LOC: ED 15:41
DX: R45.851 Suicidal ideations (principal); F32.9 Major depressive disorder, single episode, unspecified
CPT/HCPCS: 36415; 80053; 80307; 81001; 85025; 87086; 90791; 93005; 99285; G0480; G0481

== ENCOUNTER 2019-02-21 04:41 | Observation (INO) | payer SELFPAY ==
[2019-02-21] MEDS ORDERED: Sodium Chloride 0.9% 1000 ML 1,000 ML IV STA (04:57)
--- NOTE | 2019-02-21 04:58 | ERPHSYRPT ---
- History of Present Illness Time Seen by Provider: 02/21/19 04:57 Source: patient, family Exam Limitations: no limitations Patient Subjective Stated Complaint: pt states she woke up and had bright red blood in her tool Triage Nursing Assessment: pt alert and oriented, answers questions approp. pt ambulate from wheelchair to stretcher per self. steady gait noted. respirations nonalbored with l ungs cta. abd soft and nontender to light palpation. bowel sounds present. Physician History: 53 morbidly obese white female presents with acute onset of rectal bleeding and associated n/v. pt does not have a known bleeding d/o and does not have liver dz. however, this is the 4th time she has had rectal bleeding over past several years. pt received blood transfusions here in 2017. pt states she received 10 units prbcs transfused a number of years ago at [facility] but they were unable to locate site of bleeding. pt has a h/o diverticulosis, htn, hyperlipidemia and gi bleed. pt does take metoprolol but is not on any anticoag tx other than a baby asa. pt did not take her morning meds. pt denies cp, soa and denies abd pain. Timing/Duration: today Severity: mild (small amt of blood but feels dizzy) Associated Symptoms: nausea, vomiting, diaphoresis, weakness, No abdominal pain Allergies/Adverse Reactions: hydrocodone bitartrate [From Vicodin] Allergy (Mild, Verified 02/21/19 04:53) Itching oxycodone [Oxycodone] Allergy (Mild, Verified 02/21/19 04:53) Itching Sulfa (Sulfonamide Antibiotics) [Sulfa(Sulfonamide Antibiotics)] Allergy (Mild, Verified 02/21/19 04:53) Hives codeine Adverse Reaction (Mild, Verified 02/21/19 04:53) Itching meperidine HCl [From Demerol] Adverse Reaction (Mild, Verified 02/21/19 04:53) Vomiting Home Medications: Allopurinol 300 mg [Zyloprim 300 mg] 300 mg PO DAILY 02/16/15 [History] Aspirin 81 mg PO DAILY 02/16/15 [History] Atorvastatin Calcium [Lipitor] 80 mg PO HS 02/16/15 [History] Omeprazole 40 mg PO QAM 05/31/15 [History] Ropinirole HCl 1 mg PO HS 02/16/15 [History] Temazepam 30 mg PO HS 02/16/15 [History] Cyanocobalamin 500 Mcg [Vitamin B-12 500 MCG] 2,500 mcg PO QAM 03/04/17 [ History] Bupropion HCl 150 mg Sr [Wellbutrin SR 150 MG] 150 mg PO BID 07/09/17 [ History] Dextroamphetamine/Amphetamine [Adderall 20 mg Tablet] 20 mg PO BID 07/09/17 [ History] Metoprolol Tartrate 12.5 mg PO BID 07/09/17 [History] Hx Tetanus, Diphtheria Vaccination/Date Given: Yes Hx Influenza Vaccination/Date Given: No Hx Pneumococcal Vaccination/Date Given: Yes Immunizations Up to Date: Yes - Review of Systems Constitutional: No Symptoms Eyes: No Symptoms Ears, Nose, & Throat: No Symptoms Respiratory: No Symptoms Cardiac: No Symptoms Abdominal/Gastrointestinal: Nausea, Vomiting, 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) Genitourinary Symptoms: No Symptoms Musculoskeletal: No Symptoms Skin: No Symptoms Neurological: Dizziness Psychological: No Symptoms Endocrine: No Symptoms Hematologic/Lymphatic: Other (h/o rectal bleeding at unknown site) Immunological/Allergic: No Symptoms All Other Systems: Reviewed and Negative - Past Medical History Pertinent Past Medical History: Yes Neurological History: Migraines ENT History: No Pertinent History Cardiac History: Angina, Congestive Heart Failure, Coronary Artery Disease, High Cholesterol, Hypertension, Myocardial Infarction (CT) Respiratory History: Sleep Apnea Endocrine Medical History: No Pertinent History Musculoskeletal History: Arthritis GI Medical History: GERD, Gallbladder Disease, GI Bleed History: Renal Disease, Other Psycho-Social History: Anxiety, Depression Female Reproductive Disorders: Abnormal Uterine Bleeding, Endometriosis Other Medical History: Renal calculus. GOUT - RLS - Past Surgical History Past Surgical History: Yes Neuro Surgical History: No Pertinent History Cardiac: CABG, Cardiac Catheterization Respiratory: No Pertinent History Gastrointestinal: Cholecystectomy Genitourinary: Kidney Surgery Musculoskeletal: Other Female Surgical History: Hysterectomy Other Surgical History: knee muscle lateral release dwaine , kidney stone removal x 7, hernia repair - Social History Smoking Status: Never smoker Exposure to second hand smoke: No Drug Use: none Patient Lives Alone: No Significant Family History: heart disease, hypertension - Nursing Vital Signs Nursing Vital Signs: Initial Vital Signs Temperature 97.9 F 02/21/19 04:44 Pulse Rate 98 H 02/21/19 04:44 Respiratory Rate 18 02/21/19 04:44 Blood Pressure 124/86 02/21/19 04:44 O2 Sat by Pulse Oximetry 97 02/21/19 04:44 Pain Scale Pain Intensity 0 - Physical Exam General Appearance: mild distress, alert, anxiety Eye Exam: PERRL/EOMI Ears, Nose, Throat Exam: normal ENT inspection, moist mucous membranes Neck Exam: normal inspection, non-tender, supple, full range of motion Respiratory Exam: normal breath sounds, lungs clear, airway intact, No chest tenderness, No respiratory distress Cardiovascular Exam: regular rate/rhythm, normal heart sounds, normal peripheral pulses Gastrointestinal/Abdomen Exam: soft, normal bowel sounds, No tenderness Pelvic Exam: not done Rectal Exam: not done Back Exam: normal inspection, normal range of motion, CVA tenderness Extremity Exam: normal inspection, normal range of motion, pelvis stable Neurologic Exam: alert, oriented x 3, cooperative, retrimmer II-XII nml as tested, normal mood/affect, nml cerebellar function Skin Exam: normal color, warm, dry, diaphoresis Lymphatic Exam: No adenopathy SpO2 Interpretation: normal SpO2: 97 O2 Delivery: Room Air - Course Nursing assessment & vital signs reviewed: Yes EKG Interpreted by Me: RATE (87), NORMAL AXIS, NORMAL INTERVALS, NORMAL QRS, Non -specific ST Changes, Other (no change from comparison ekg dated 08/24/18) Ordered Tests: Active Orders 24 hr Category Date Time Status Clean Catch Urine Specimen STAT Care 02/21/19 04:57 Active EKG-ER Only STAT Care 02/21/19 04:57 Active IV Insertion STAT Care 02/21/19 04:57 Active Orthostatic Vital Signs STAT Care 02/21/19 04:59 Active CBC W DIFF Stat Lab 02/21/19 05:00 Completed CMP Stat Lab 02/21/19 05:00 Completed Lactic Acid Stat Lab 02/21/19 05:15 Completed PROTIME WITH INR Stat Lab 02/21/19 05:00 Completed UA W/RFX UR CULTURE Stat Lab 02/21/19 04:58 Uncollected Urine Triage Profile Stat Lab 02/21/19 04:58 Uncollected Transfer Order Routine Transfer 02/21/19 Ordered Medication Summary Discontinued Medications Generic Name Dose Route Start Last Admin Trade Name Freq PRN Reason Stop Dose Admin Sodium Chloride 1,000 mls @ 999 mls/hr 02/21/19 04:57 02/21/19 05:04 Sodium Chloride 0.9% 1000 Ml IV 02/21/19 05:57 999 mls/hr .Q1H1M STA Administration Sodium Chloride Confirm 02/21/19 05:02 Sodium Chloride 0.9% 1000 Ml Administered 02/21/19 05:03 Dose 1,000 mls @ ud .ROUTE .STK-MED ONE Ondansetron HCl Confirm 02/21/19 05:02 Zofran 4 Mg/2 Ml Vial Administered 02/21/19 05:03 Dose 4 mg .ROUTE .STK-MED ONE Ondansetron HCl 4 mg 02/21/19 05:08 02/21/19 05:28 Zofran 4 Mg/2 Ml Vial IV 02/21/19 05:09 4 mg STAT ONE Administration Lab/Rad Data: Laboratory Result Diagrams 02/21/19 05:00 02/21/19 05:00 Laboratory Results 02/21/19 02/21/19 02/21/19 Range/Units 05:15 05:00 05:00 WBC (4.0-10.5) K/mm3 RBC (4.1-5.4) M/mm3 Hgb (12.0-16.0) gm/dl Hct (35-47) % MCV (78-100) fl MCH (26-32) pg MCHC (32-36) g/dl RDW (11.5-14.0) % Plt Count (150-450) K/mm3 MPV (6-9.5) fl Gran % (36.0-66.0) % Eos # (Auto) (0-0.5) Absolute Lymphs (auto) (1.0-4.6) Absolute Monos (auto) (0.0-1.3) Lymphocytes % (24.0-44.0) % Monocytes % (0.0-12.0) % Eosinophils % (0.00-5.0) % Basophils % (0.0-0.4) % Absolute Granulocytes (1.4-6.9) Basophils # (0-0.4) PT 10.9 (9.95-12.35) SECONDS INR 0.94 (0.8-3.0) Sodium 141 (137-145) mmol/L Potassium 3.5 (3.5-5.1) mmol/L Chloride 105 (98-107) mmol/L Carbon Dioxide 25 (22-30) mmol/L Anion Gap 13.8 (5-15) MEQ/L BUN 17 (7-17) mg/dL Creatinine 1.05 H (0.52-1.04) mg/dL Estimated GFR 58.0 ML/MIN Glucose 147 H (74-106) mg/dL Lactic Acid 1.6 (0.4-2.0) Calcium 9.5 (8.4-10.2) mg/dL Total Bilirubin 0.40 (0.2-1.3) mg/dL AST 29 (14-36) U/L ALT 32 (0-35) U/L Alkaline Phosphatase 114 (38-126) U/L Serum Total Protein 7.1 (6.3-8.2) g/dL Albumin 4.0 (3.5-5.0) g/dL 02/21/19 Range/Units 05:00 WBC 8.3 (4.0-10.5) K/mm3 RBC 4.46 (4.1-5.4) M/mm3 Hgb 13.4 (12.0-16.0) gm/dl Hct 41.2 (35-47) % MCV 92.4 (78-100) fl MCH 30.0 (26-32) pg MCHC 32.5 (32-36) g/dl RDW 13.4 (11.5-14.0) % Plt Count 294 (150-450) K/mm3 MPV 10.9 H (6-9.5) fl Gran % 56.9 (36.0-66.0) % Eos # (Auto) 0.41 (0-0.5) Absolute Lymphs (auto) 2.33 (1.0-4.6) Absolute Monos (auto) 0.78 (0.0-1.3) Lymphocytes % 28.2 (24.0-44.0) % Monocytes % 9.4 (0.0-12.0) % Eosinophils % 5.0 (0.00-5.0) % Basophils % 0.5 (0.0-0.4) % Absolute Granulocytes 4.71 (1.4-6.9) Basophils # 0.04 (0-0.4) PT (9.95-12.35) SECONDS INR (0.8-3.0) Sodium (137-145) mmol/L Potassium (3.5-5.1) mmol/L Chloride (98-107) mmol/L Carbon Dioxide (22-30) mmol/L Anion Gap (5-15) MEQ/L BUN (7-17) mg/dL Creatinine (0.52-1.04) mg/dL Estimated GFR ML/MIN Glucose (74-106) mg/dL Lactic Acid (0.4-2.0) Calcium (8.4-10.2) mg/dL Total Bilirubin (0.2-1.3) mg/dL AST (14-36) U/L ALT (0-35) U/L Alkaline Phosphatase (38-126) U/L Serum Total Protein (6.3-8.2) g/dL Albumin (3.5-5.0) g/dL - Progress Progress: improved Progress Note: 02/21/19 05:59 based on measurement of vital signs, pt is not orthostatic 02/21/19 06:[address] martines. i reviewed pt hx, condition, lab results with her. she accepts pt for observation. will order serial h/hs. Discussed with : Darryl Counseled pt/family regarding: lab results, diagnosis - Departure Departure Disposition: Observation Clinical Impression: Rectal bleeding Condition: Stable Critical Care Time: No Referrals: TINA MARTINES [Primary Care Provider] -
[2019-02-21] MEDS ORDERED: Zofran 4 MG/2 ML VIAL ONE (05:02)
[2019-02-21] MEDS ORDERED: Sodium Chloride 0.9% 1000 ML 1,000 ML ONE (05:02)
[2019-02-21] MEDS ORDERED: Zofran 4 MG/2 ML VIAL IV ONE (05:08)
[2019-02-21 05:11] LABS: BASOPHIL % 0.5 % (0.0-0.4); Basophil (Absolute #) 0.04 (0-0.4); Eosinophil (Absolute #) 0.41 (0-0.5); Granulocyte Absolute (ANC) 4.71 (1.4-6.9); Granulocytes % 56.9 % (36.0-66.0); Hematocrit 41.2 % (35-47); Hemoglobin 13.4 gm/dl (12.0-16.0); Lymphocyte (Absolute #) 2.33 (1.0-4.6); Lymphocytes % 28.2 % (24.0-44.0); Mean Cell Volume 92.4 fl (78-100); Mean Corpuscular Hgb Concent. 32.5 g/dl (32-36); Mean Platelet Volume 10.9 fl (6-9.5); Monocyte (Absolute #) 0.78 (0.0-1.3); Monocytes % 9.4 % (0.0-12.0); Platelet Count 294 K/mm3 (150-450); Red Blood Count 4.46 M/mm3 (4.1-5.4); Red Cell Distribution Width 13.4 % (11.5-14.0); White Blood Count 8.3 K/mm3 (4.0-10.5)
[2019-02-21 05:20] LABS: INR 0.94 (0.8-3.0); PROTIME 10.9 SECONDS (9.95-12.35)
[2019-02-21 05:25] LABS: ANION GAP 13.8 MEQ/L (5-15); BILIRUBIN,TOTAL 0.4 mg/dL (0.2-1.3); Calcium 9.5 mg/dL (8.4-10.2); Creatinine 1 1.05 mg/dL (0.52-1.04); Potassium 3.5 mmol/L (3.5-5.1); Total Protein 7.1 g/dL (6.3-8.2)
[2019-02-21] MEDS ORDERED: DIPRIVAN 200 MG/20 ML IV ONE (06:50)
[2019-02-21] MEDS ORDERED: Ketamine HCl 50 MG/ML IJ ONE (06:50)
[2019-02-21 07:09] LABS: Appearance SLIGHTLY CLOUDY (CLEAR); Bacteria FEW /HPF (NEGATIVE); Bilirubin SMALL (NEGATIVE); Blood NEGATIVE Ery/ul (0-5); Epithelial Cells FEW /HPF (FEW); Glucose NEGATIVE (NEGATIVE); Hyaline Casts 0-2 /LPF (0-2); Ketones TRACE (NEGATIVE); Leukocyte Esterase NEGATIVE (NEGATIVE); Mucus MODERATE /HPF (NEGATIVE); Nitrite NEGATIVE (NEGATIVE); Protein,Urine Dip 100 (Negative); Urobilinogen 4 mg/dL (0-1)
[2019-02-21 07:32] LABS: Amphetamine,Urine POSITIVE (NEGATIVE); Barbiturate,Urine NEGATIVE (NEGATIVE); Benzodiazepine,Urine NEGATIVE (NEGATIVE); Cocaine,Urine NEGATIVE (NEGATIVE); Methadone,Urine NEGATIVE (NEGATIVE); Opiate,Urine NEGATIVE (NEGATIVE); PCP,Urine NEGATIVE (NEGATIVE); THC,Urine NEGATIVE (NEGATIVE)
[2019-02-21 07:54] LABS: ABO TYPING O; Antibody Screen NEGATIVE (NEGATIVE); RH TYPING POSITIVE
[2019-02-21 07:56] LABS: CROSS MATCH (PRBC) COMPATIBLE (COMPATIBLE)
[2019-02-21] MEDS: Sodium Chloride 0.9% 1000 ML 1,000 ML IV SCH ×2 (08:07→18:44)
[2019-02-21] MEDS: PROTONIX 40 MG IV IV SCH (08:35)
[2019-02-21] MEDS ORDERED: NovoLOG Insulin SQ PRN (08:58)
--- NOTE | 2019-02-21 09:30 | HP ---
HISTORY OF PRESENT ILLNESS: This is a 53 year-old patient of mine who reports she woke up last night with a cramp in her foot and then she went to the bathroom. She had bright red blood from her rectum onto the floor. She reports she had diarrhea yesterday but this was not bloody. She denies any abdominal pain but states her stomach feeling rumbling. She reports chills yesterday but no fever. She reports this has happened four other times before. She reports she has had a colonoscopy in the past and then had further work up at [facility] but they were unable to find the source of bleeding. All of this was over five years ago. She reports she has been under extra stress at home as she is recently and keeps one of their two children and is trying to obtain financial support from her ex- who has formal custody. REVIEW OF SYSTEMS: She reports some pressure under her chin. No chest pain. No dyspnea. She reports legs were swollen one day but not now. No rashes. MEDICATIONS: Please see the home medication reconciliation form which I have reviewed. ALLERGIES: SULFA. CODEINE. DEMEROL. VICODIN. PAST MEDICAL HISTORY: Coronary artery disease with coronary artery bypass graft in [address] Lazaro. Gout. Hyperlipidemia. Hypertension. Kidney stones. History of stage IV chronic kidney disease which she has seen Dr. Singh for in the past. Obesity. Diabetes mellitus type 2. Attention Deficit Disorder. PAST SURGICAL HISTORY: Gastric bypass. Kidney stone removed several different times. Cholecystectomy. Hysterectomy. Bilateral knee surgery with releases. Coronary artery bypass graft 09/04/2002. SOCIAL HISTORY: Her daughter who will be in eighth grade lives with her. She does not smoke, does not use any alcohol. She is . FAMILY HISTORY: Her mother is living and has history of heart disease. Her father is living and has a history of heart disease. PHYSICAL EXAMINATION: VITAL SIGNS: Temperature current 98.1F, temperature max 98.1F, heart rate 72, respiratory rate 18, blood pressure 133/71. Oxygen saturation 99% on room air. GENERAL: The patient is a pleasant talkative lady lying in bed in no acute distress. CVS: She has a regular rate and rhythm. No murmurs, gallops or rubs are appreciated. CHEST: Clear to auscultation bilaterally. No crackles or wheezes. ABDOMEN: Soft, nontender, nondistended with normal bowel sounds. EXTREMITIES: No clubbing, cyanosis or edema. SKIN: Warm, dry and intact. LABORATORY DATA AND TESTS: Hemoglobin 13.4. International normalized ratio 0.94. Creatinine 1.05. Glucose 147. UA with 6 to 10 white blood cells, 6 to 10 red blood cells. Stool was positive for occult blood. Urine tox positive for amphetamines. ASSESSMENT AND PLAN: 1) HEMATOCHEZIA: Will ask general surgery consult for consideration of a colonoscopy. Will check serial hemoglobin. She has been started on Protonix 40 mg IV daily and has already received the first dose. Will hold her aspirin at this time. 2) HISTORY OF CORONARY ARTERY DISEASE: Will continue with her statin and beta guillermo. 3) ATTENTION DEFICIT DISORDER: Will continue with her home dose of Adderall. 4) HYPERTENSION: Will continue with beta guillermo. 5) DIABETES MELLITUS TYPE 2: Use a low dose sliding scale of NovoLog.
[2019-02-21 09:50] LABS: Hematocrit 36.6 % (35-47); Hemoglobin 11.7 gm/dl (12.0-16.0)
[2019-02-21] MEDS: Lopressor 25MG Tab PO SCH ×2 (10:00→23:18)
[2019-02-21] MEDS: DEXTROAMPHETAMINE PO SCH ×2 (10:01→12:53)
[2019-02-21] MEDS: AMPHETAMINE PO SCH ×2 (10:01→12:53)
[2019-02-21] MEDS ORDERED: CITROMA 296 ML PO ONE (13:22)
[2019-02-21 13:38] LABS: Hematocrit 33.4 % (35-47); Hemoglobin 10.7 gm/dl (12.0-16.0)
[2019-02-21] MEDS: Zofran 4 MG/2 ML VIAL IV PRN (15:01)
[2019-02-21 17:22] LABS: Hematocrit 28.9 % (35-47); Hemoglobin 9.5 gm/dl (12.0-16.0)
[2019-02-21] MEDS: TYLENOL 325 MG PO PRN (18:12)
[2019-02-21 21:16] LABS: Hematocrit 30.1 % (35-47); Hemoglobin 9.8 gm/dl (12.0-16.0)
[2019-02-21] MEDS ORDERED: NON-FORMULARY ITEM (Atorvastatin Calcium [Lipitor] 80 MG) PO SCH (22:00)
[2019-02-21] MEDS ORDERED: TRAZODONE HCL 300 MG PO SCH (22:00)
[2019-02-21] MEDS: Desyrel 150 MG PO SCH (23:15)
[2019-02-21] MEDS: ZOCOR 20MG PO SCH (23:19)
[2019-02-22] MEDS: Sodium Chloride 0.9% 1000 ML 1,000 ML IV SCH (04:53)
[2019-02-22 06:33] LABS: ALBUMIN 3.1 g/dL (3.5-5.0); ANION GAP 9.9 MEQ/L (5-15); BILIRUBIN,TOTAL 0.3 mg/dL (0.2-1.3); Calcium 8.6 mg/dL (8.4-10.2); Creatinine 1 1.04 mg/dL (0.52-1.04); Potassium 4.2 mmol/L (3.5-5.1); Total Protein 5.6 g/dL (6.3-8.2)
[2019-02-22] MEDS: Zofran 4 MG/2 ML VIAL IV PRN (06:37)
[2019-02-22] MEDS: TYLENOL 325 MG PO PRN ×2 (08:16→21:35)
--- NOTE | 2019-02-22 08:39 | PCM.NOTE ---
Date and Time: 02/22/1935 Subjective Assessment: Patient reports a headache this AM. She has been npo since midnight and has her scope at 3 pm today. She reports that her mouth feels dry. She reports the last time she had blood from her rectum was at 5 pm yesterday. No abdominal pain. She states she feels lightheaded and dizzy when she stands up. OBJECTIVE DATA Vital Signs: Vital Signs - 24 hr Temp Pulse Resp BP Pulse Ox 02/22/19 07:41 98.1 F 61 20 100/54 97 02/22/19 07:24 97 02/22/19 03:54 98.0 F 61 18 130/57 97 02/21/19 23:52 98.6 F 86 18 131/63 97 02/21/19 20:00 98.4 F 81 18 126/63 97 02/21/19 16:00 98.1 F 85 18 101/60 97 02/21/19 12:00 98.2 F 78 18 136/92 98 02/21/19 08:40 94 L 02/21/19 08:35 96 Pain Assessment - Last Documented Pain Intensity 3 Pain Scale Used 0-10 Pain Scale Intake and Output: Intake & Output 02/20/19 02/21/19 02/22/19 02/23/19 06:59 06:59 06:59 06:59 Intake Total 2220 Balance 2220 Weight 113.398 kg 120.9 kg Lab Results: Accuchecks Date 02/21/19 Date 02/21/19 Date 02/21/19 Time 21:30 Time 16:30 Time 11:30 Accucheck Value: 158 Accucheck Value: 183 Accucheck Value: 128 Lab Results-Last 24 Hours 02/21/19 02/21/19 02/21/19 Range/Units 09:15 09:15 13:00 Hgb 11.7 L 10.7 L (12.0-16.0) gm/dl Hct 36.6 33.4 L (35-47) % Sodium (137-145) mmol/L Potassium (3.5-5.1) mmol/L Chloride (98-107) mmol/L Carbon Dioxide (22-30) mmol/L Anion Gap (5-15) MEQ/L BUN (7-17) mg/dL Creatinine (0.52-1.04) mg/dL Estimated GFR ML/MIN Glucose (74-106) mg/dL Hemoglobin A1c 6.13 H (4.5-6.0) % Calcium (8.4-10.2) mg/dL Total Bilirubin (0.2-1.3) mg/dL AST (14-36) U/L ALT (0-35) U/L Alkaline Phosphatase (38-126) U/L Serum Total Protein (6.3-8.2) g/dL Albumin (3.5-5.0) g/dL 02/21/19 02/21/19 02/22/19 Range/Units 17:20 21:15 05:50 Hgb 9.5 L 9.8 L (12.0-16.0) gm/dl Hct 28.9 L 30.1 L (35-47) % Sodium 137 (137-145) mmol/L Potassium 4.2 (3.5-5.1) mmol/L Chloride 107 (98-107) mmol/L Carbon Dioxide 24 (22-30) mmol/L Anion Gap 9.9 (5-15) MEQ/L BUN 17 (7-17) mg/dL Creatinine 1.04 (0.52-1.04) mg/dL Estimated GFR 58.7 ML/MIN Glucose 151 H (74-106) mg/dL Hemoglobin A1c (4.5-6.0) % Calcium 8.6 (8.4-10.2) mg/dL Total Bilirubin 0.30 (0.2-1.3) mg/dL AST 17 (14-36) U/L ALT 21 (0-35) U/L Alkaline Phosphatase 76 (38-126) U/L Serum Total Protein 5.6 L (6.3-8.2) g/dL Albumin 3.1 L (3.5-5.0) g/dL Assessment/Plan (1) Hematochezia Current Visit: Yes Status: Acute Assessment & Plan: Hgb went from 13.4 on admission to 9.8 late last night. Will recheck this Am. Plan to transfuse if hgb goes below 8 as she has history of CAD. She is on a PPI. Code(s): K92.1 - MELENA (2) Anemia Current Visit: Yes Status: Acute Qualifiers: Anemia type: other cause Assessment & Plan: Due to blood loss. The general surgeon plans to do a colonoscopy today and perhaps an upper endoscopy to look for the source of bleeding. She has history of GI bleeding in the past (years ago) and source was not found at that time ( she was at [facility]). Code(s): D64.9 - ANEMIA, UNSPECIFIED (3) CAD (coronary artery disease) Current Visit: No Status: Chronic Assessment & Plan: Aspirin is held due to bleeding. Metoprolol ordered but held today due to low blood pressure. Statin ordered. Code(s): I25.10 - ATHSCL HEART DISEASE OF [place] CORONARY ARTERY W/O ANG PCTRS (4) Attention deficit disorder (ADD) in adult Current Visit: Yes Status: Acute Assessment & Plan: She takes Adderall at home. Code(s): F98.8 - OTH BEHAV/EMOTN DISORD W ONSET USLY OCCUR IN CHLDHD AND ADOL (5) Hypertension Current Visit: No Status: Chronic Assessment & Plan: Blood pressure currently in normal range. Code(s): I10 - ESSENTIAL (PRIMARY) HYPERTENSION (6) Diabetes type 2, controlled Current Visit: Yes Status: Acute Qualifiers: Diabetes mellitus senior living insulin use: without senior living use Diabetes mellitus complication status: without complication Qualified Code(s): E11.9 - Type 2 diabetes mellitus without complications Assessment & Plan: Continue low dose novolog sliding scale. Blood glucoses all less than 200. Code(s): E11.9 - TYPE 2 DIABETES MELLITUS WITHOUT COMPLICATIONS
[2019-02-22] MEDS: PROTONIX 40 MG IV IV SCH (09:22)
[2019-02-22] MEDS: Lopressor 25MG Tab PO SCH ×2 (09:23→23:38)
[2019-02-22] MEDS: AMPHETAMINE PO SCH (09:23)
[2019-02-22] MEDS: DEXTROAMPHETAMINE PO SCH (09:23)
[2019-02-22 14:14] LABS: Hematocrit 29.3 % (35-47); Hemoglobin 9.2 gm/dl (12.0-16.0)
[2019-02-22] MEDS ORDERED: Dextrose 5% -0.45 NaCl 1000 ML 1,000 ML IV SCH (16:30)
[2019-02-22 17:00] LABS: BASOPHIL % 0.5 % (0.0-0.4); Basophil (Absolute #) 0.04 (0-0.4); Eosinophil % 3.4 % (0.00-5.0); Eosinophil (Absolute #) 0.29 (0-0.5); Granulocyte Absolute (ANC) 4.19 (1.4-6.9); Granulocytes % 48.5 % (36.0-66.0); Hematocrit 23.2 % (35-47); Hemoglobin 7.5 gm/dl (12.0-16.0); Lymphocyte (Absolute #) 3.56 (1.0-4.6); Lymphocytes % 41.3 % (24.0-44.0); Mean Cell Volume 94.7 fl (78-100); Mean Corpuscular Hemoglobin 30.6 pg (26-32); Mean Corpuscular Hgb Concent. 32.3 g/dl (32-36); Mean Platelet Volume 10.8 fl (6-9.5); Monocyte (Absolute #) 0.54 (0.0-1.3); Monocytes % 6.3 % (0.0-12.0); Platelet Count 219 K/mm3 (150-450); Red Blood Count 2.45 M/mm3 (4.1-5.4); Red Cell Distribution Width 13.4 % (11.5-14.0); White Blood Count 8.6 K/mm3 (4.0-10.5)
[2019-02-22] MEDS ORDERED: Sodium Chloride 0.9% 1000 ML 1,000 ML IV SCH (23:00)
[2019-02-22] MEDS: Desyrel 150 MG PO SCH (23:37)
[2019-02-22] MEDS: ZOCOR 20MG PO SCH (23:39)
[2019-02-23] MEDS ORDERED: Sodium Chloride 0.9% 500 ML 500 ML IV ONE ×2 (00:10→05:48)
[2019-02-23] MEDS ORDERED: Sodium Chloride 0.9% 500 ML 500 ML IV SCH (00:30)
[2019-02-23] MEDS ORDERED: PROTONIX 40 MG IV IV SCH (08:00)
--- NOTE | 2019-02-23 08:23 | CONS ---
CONSULT DATE: 02/22/2019 REASON FOR CONSULT: GI bleed. HISTORY: The patient presents with bright red blood per rectum which started yesterday about 0100 hours. She had bright red blood that slowed down yesterday evening and she underwent bowel prep yesterday evening. She did have some clots with the bowel prep and with the enema this morning. This is about the fourth time she has had rectal bleeding. She did have a colonoscopy about five years ago and they did not find any source of the bleeding. She has had a laparoscopic Ashley-en-Y gastric bypass in 2005. She had chest pain, shortness of breath, abdominal pain, nausea and vomiting. PAST MEDICAL HISTORY: GI bleed. Coronary artery disease. Hypertension. Hyperlipidemia. History of coronary artery bypass graft in 2001. Hysterectomy. Cholecystectomy. Laparoscopic Ashley-en-Y gastric bypass in 2005. MEDICATIONS: Reviewed, see MAR. Included aspirin. SOCIAL HISTORY: No tobacco. No alcohol. FAMILY HISTORY: Esophageal cancer in her brother. LAB DATA AND TESTS: Hemoglobin was 9.6 and her latest is 7.5 . She did have some slight elevation in her creatinine as well. She does have chronic kidney disease. ASSESSMENT: GI bleed. PLAN: EGD and colonoscopy.
--- NOTE | 2019-02-23 08:59 | OP ---
SURGERY DATE/TIME: 02/22/2019 1650 PREOPERATIVE DIAGNOSIS: GI bleed. POSTOPERATIVE DIAGNOSES: 1) GI bleed. 2) Small hiatal hernia. PROCEDURES: 1) EGD. 2) Colonoscopy past splenic flexure but incomplete. SURGEON: Silverio Martinez M.D. ANESTHESIA: MAC. ESTIMATED BLOOD LOSS: Minimal. COMPLICATIONS: None. PATIENT PRESENTATION: This patient presents with GI bleed. She underwent her bowel prep after discussing risks and benefits of EGD and colonoscopy and the patient wishes to proceed. She does have history of laparoscopic gastric bypass. DESCRIPTION OF PROCEDURE: The patient was brought to the endoscopy suite and placed in left lateral decubitus position and placed under MAC anesthesia. Upper endoscopy performed first. The gastroscope inserted in the mouth. Gastroscope advanced to the esophagus. The gastric pouch was evaluated. There was a small hiatal hernia. There was absolutely no blood in her gastric pouch. The gastric pouch looked excellent. One staple from her anastomosis could be seen. There did not appear to be any ulcers. The candy cane limb and the jejunal Ashley limb were evaluated and looked excellent. The scope was withdrawn. Attention then was turned to the colonoscopy. Rectal exam was performed. There were no external hemorrhoids. There was no rectal mass. There was some old blood in the rectal vault. The scope was advanced. There is significant clot in the rectum. The scope was slowly and gently advanced. There was thick dark clot throughout the colon. There certainly could be lesions missed on colonoscopy as this was a very poor prep due to the blood. She did have significant diverticula with numerous small and moderate sized diverticula. The scope was advanced up 130 cm. It was certainly advanced past the splenic flexure and I believe also past the hepatic flexure. I think that we may have reached the cecum but there was a large amount of clot in this final area and the ileocecal valve and appendiceal orifice could not clearly be identified so the colonoscopy is considered incomplete but there is no active bleeding anywhere in the visualized colon. There was clot throughout the entire exam. The scope was slowly withdrawn. No other findings. If the patient rebleeds, a CT-angiography abdomen and pelvis would potentially be useful for localizing the source of her bleeding. The patient could be bleeding from her gastric remnant but cannot be accessed by standard EGD. It may be beneficial to have her referred to specialized brushing machine operator for double balloon push enteroscopy to evaluate the gastric remnant. The bleeding could also be from her small intestines which a PillCam might be useful for further evaluating. The bleeding could be from her diverticular disease and just a reflux back into the proximal colon. Ultimately it is very unclear where her bleeding is from. I would suspect the gastric remnant but it certainly could be from somewhere else. We will start her on proton pump inhibitor and go from there.
[2019-02-23] MEDS: TYLENOL 325 MG PO PRN ×2 (09:19→15:07)
--- NOTE | 2019-02-23 10:30 | DS ---
DISCHARGE DIAGNOSES: 1) HEMATOCHEZIA DUE TO GASTROINTESTINAL BLEED. 2) ANEMIA. 3) CORONARY ARTERY DISEASE. 4) ATTENTION DEFICIT DISORDER. 5) HYPERTENSION. 6) DIABETES MELLITUS TYPE 2, CONTROLLED. 7) HISTORY OF GASTRIC BYPASS SURGERY. DISCHARGE PHYSICAL EXAMINATION: VITALS: Temperature current 98.9F, temperature max 98.9F, heart rate 76, respiratory rate 18, blood pressure 115/61. Oxygen saturation 96% on room air. GENERAL: The patient is a pleasant talkative lady lying in bed in no acute distress. CVS: She has a regular rate and rhythm. No murmurs, gallops or rubs are appreciated. CHEST: Clear to auscultation bilaterally. No crackles or wheezes are appreciated. ABDOMEN: Soft, nontender, nondistended with normal bowel sounds. EXTREMITIES: No clubbing, cyanosis or edema. SKIN: Warm, dry and intact. HOSPITAL COURSE: 1) HEMATOCHEZIA DUE TO GASTROINTESTINAL BLEED: She had a general surgery consult. They did an upper endoscopy and colonoscopy that was reported as small hiatal hernia, diverticulosis, incomplete colonoscopy. A formal report from the surgeon is not available yet at this time. The patient's hemoglobin on admission had been 13.4 on 02/21/2019. Her hemoglobin went down to 7.5 on 02/22/2019 at 1620. Two units of packed red blood cells were ordered but due to a system error were not transfused right away. She is finishing her second unit now. She had a repeat hemoglobin before that was finished that was 9.2. The patient reports currently no active bright red blood per rectum. [facility] was called and Dr. Jayleen Baumann is willing to accept in transfer for further evaluation with specialty testing and specialty consultation at [facility] in [place]. 2) ANEMIA. Most likely due to acute blood loss. Will continue to monitor closely. 3) CORONARY ARTERY DISEASE: Her aspirin has been held due to the bleeding. Metoprolol was held yesterday, will plan to go ahead and hold the metoprolol again today. She is on a statin. 4) ATTENTION DEFICIT DISORDER: She takes Adderall at home. 5) HYPERTENSION: Her blood pressure is currently well controlled. 6) DIABETES MELLITUS TYPE 2: We are using a low dose sliding scale of NovoLog and currently well controlled. DISCHARGE MEDICATIONS: Please see the discharge order. DISPOSITION: The patient is being transferred to [facility] for GI bleed for specialty work up.
[2019-02-23 11:20] VITALS: BP 113/51; PULSE 71; O2SAT 93
[2019-02-23 11:35] LABS: BASOPHIL % 0.2 % (0.0-0.4); Basophil (Absolute #) 0.02 (0-0.4); Eosinophil % 3.9 % (0.00-5.0); Eosinophil (Absolute #) 0.37 (0-0.5); Granulocyte Absolute (ANC) 5.79 (1.4-6.9); Granulocytes % 61.3 % (36.0-66.0); Hematocrit 28.8 % (35-47); Hemoglobin 9.4 gm/dl (12.0-16.0); Lymphocyte (Absolute #) 2.67 (1.0-4.6); Lymphocytes % 28.2 % (24.0-44.0); Mean Cell Volume 92.6 fl (78-100); Mean Corpuscular Hemoglobin 30.2 pg (26-32); Mean Corpuscular Hgb Concent. 32.6 g/dl (32-36); Mean Platelet Volume 10.7 fl (6-9.5); Monocyte (Absolute #) 0.61 (0.0-1.3); Monocytes % 6.4 % (0.0-12.0); Platelet Count 201 K/mm3 (150-450); Red Blood Count 3.11 M/mm3 (4.1-5.4); Red Cell Distribution Width 15.2 % (11.5-14.0); White Blood Count 9.5 K/mm3 (4.0-10.5)
== END 2019-02-23 15:46 ==
LOC: ED 04:41 → MED SURG 06:49
PROVIDERS: ADMIT Internal Medicine; ATTEND Internal Medicine
DX: K92.2 Gastrointestinal hemorrhage, unspecified (principal); K92.1 Melena; D62 Acute posthemorrhagic anemia; K44.9 Diaphragmatic hernia without obstruction or gangrene; K57.30 Diverticulosis of large intestine without perforation or abscess without bleeding; R51 Headache; E11.9 Type 2 diabetes mellitus without complications; R42 Dizziness and giddiness; I10 Essential (primary) hypertension; I25.10 Atherosclerotic heart disease of native coronary artery without angina pectoris; F98.8 Other specified behavioral and emotional disorders with onset usually occurring in childhood and adolescence; Z98.84 Bariatric surgery status; Z79.899 Other long term (current) drug therapy
CPT/HCPCS: 36000; 36415; 43235; 45378; 51702; 80053; 80307; 81001; 82272; 82962; 83036; 83605; 85014; 85018; 85025; 85610; 86850; 86900; 86901; 86922; 87086; 93005; 94760; 94762; 96360; 96374; 99285; P9016; 36430; 93268; G0378; J2405; J2704; A9270-GY

== ENCOUNTER 2019-11-24 22:16 | Emergency (ER) | payer OTHER ==
--- NOTE | 2019-11-24 22:25 | ERPHSYRPT ---
- History of Present Illness Time Seen by Provider: 11/24/19 22:24 Historian: patient Exam Limitations: no limitations Physician History: This is a 54-year-old obese female with hypertension who presents with rectal bleeding. Onset was approximately 1 hour prior to arrival. Patient has a longstanding history of rectal bleeding that is been intermittent over the several years. Patient is being followed by her primary care physician as well as a retail wireless sales consultant. Her most recent upper and lower endoscopies were performed this past summer. There were no obvious sites of active bleeding. She had a nuclear medicine scan in the past as well. They could not and have not localized the area of bleeding. Patient states she is not short of breath she is not dizzy. She does feel as though her blood pressure is up. She has not taken her evening medicine that controls her blood pressure including lisinopril and metoprolol. She has no nausea vomiting or diarrhea. She has no abdominal pain is only on a daily aspirin. She has no bleeding or clotting disorders. She has no liver disease. Timing/Duration: today Activities at Onset: none Quality: other (No pain) Abdominal Pain Onset Location: other (No pain) Pain Radiation: no radiation Severity of Pain-Max: none Severity of Pain-Current: none Associated Symptoms: denies symptoms Previous symptoms: same symptoms as today Allergies/Adverse Reactions: hydrocodone bitartrate [From Vicodin] Allergy (Mild, Verified 11/24/19 22:34) Itching oxycodone [Oxycodone] Allergy (Mild, Verified 11/24/19 22:34) Itching Sulfa (Sulfonamide Antibiotics) [Sulfa(Sulfonamide Antibiotics)] Allergy (Mild, Verified 11/24/19 22:34) Hives silk Adverse Reaction (Intermediate, Verified 11/24/19 22:34) Blisters Silk surgical tape codeine Adverse Reaction (Mild, Verified 11/24/19 22:34) Itching meperidine HCl [From Demerol] Adverse Reaction (Mild, Verified 11/24/19 22:34) Vomiting Home Medications: Aspirin 81 mg PO DAILY 02/16/15 [History] Atorvastatin Calcium [Lipitor] 80 mg PO HS 02/16/15 [History] Dextroamphetamine/Amphetamine [Adderall 20 mg Tablet] 30 mg PO DAILY 07/09/17 [ History] Metoprolol Tartrate 12.5 mg PO BID 07/09/17 [History] Trazodone HCl 300 mg PO HS 02/21/19 [History] Omeprazole 40 mg PO HS 11/24/19 [History] lisinopriL [Lisinopril] 5 mg PO HS 11/24/19 [History] Hx Tetanus, Diphtheria Vaccination/Date Given: Yes Hx Influenza Vaccination/Date Given: No Hx Pneumococcal Vaccination/Date Given: Yes - Review of Systems Constitutional: No Symptoms, No Weakness Eyes: No Symptoms Ears, Nose, & Throat: No Symptoms Respiratory: No Symptoms Cardiac: No Symptoms Abdominal/Gastrointestinal: Melena, No Abdominal Pain, No Nausea, No Vomiting, No Diarrhea, No Constipation Genitourinary Symptoms: No Symptoms Musculoskeletal: No Symptoms Skin: No Symptoms Neurological: No Symptoms Psychological: No Symptoms Endocrine: No Symptoms Hematologic/Lymphatic: No Symptoms Immunological/Allergic: No Symptoms All Other Systems: Reviewed and Negative - Past Medical History Pertinent Past Medical History: Yes Neurological History: Migraines ENT History: No Pertinent History Cardiac History: Angina, Congestive Heart Failure, Coronary Artery Disease, High Cholesterol, Hypertension, Myocardial Infarction (MD) Respiratory History: Sleep Apnea Endocrine Medical History: No Pertinent History Musculoskeletal History: Arthritis GI Medical History: GERD, Gallbladder Disease, GI Bleed History: Renal Disease, Other Psycho-Social History: Anxiety, Depression Female Reproductive Disorders: Abnormal Uterine Bleeding, Endometriosis Other Medical History: Renal calculus. GOUT - RLS - Past Surgical History Past Surgical History: Yes Neuro Surgical History: No Pertinent History Cardiac: CABG, Cardiac Catheterization Respiratory: No Pertinent History Gastrointestinal: Cholecystectomy Genitourinary: Kidney Surgery Musculoskeletal: Other Female Surgical History: Hysterectomy Other Surgical History: knee muscle lateral release dwaine , kidney stone removal x 7, hernia repair - Social History Smoking Status: Never smoker Exposure to second hand smoke: No Drug Use: none Patient Lives Alone: No Significant Family History: heart disease, hypertension - Nursing Vital Signs Nursing Vital Signs: Initial Vital Signs Temperature 98.3 F 11/24/19 22:25 Pulse Rate 69 11/24/19 22:25 Respiratory Rate 17 11/24/19 22:25 Blood Pressure 183/89 11/24/19 22:25 O2 Sat by Pulse Oximetry 99 11/24/19 22:25 Pain Scale Pain Intensity 0 - Physical Exam General Appearance: no apparent distress, alert, anxiety Eye Exam: PERRL/EOMI, eyes nml inspection Ears, Nose, Throat Exam: normal ENT inspection, moist mucous membranes Neck Exam: normal inspection, non-tender, supple, full range of motion Respiratory Exam: normal breath sounds, lungs clear, airway intact, No chest tenderness, No respiratory distress Cardiovascular Exam: regular rate/rhythm, normal heart sounds, normal peripheral pulses Gastrointestinal/Abdomen Exam: soft, normal bowel sounds, No tenderness Pelvic Exam: not done Rectal Exam: not done Back Exam: normal inspection, normal range of motion, No CVA tenderness, No vertebral tenderness Extremity Exam: normal inspection, normal range of motion, pelvis stable Neurologic Exam: alert, oriented x 3, cooperative, gas engine operator II-XII nml as tested, normal mood/affect, nml cerebellar function, nml station & gait, sensation nml Skin Exam: normal color, warm, dry Lymphatic Exam: No adenopathy SpO2 Interpretation: normal O2 Delivery: Room Air - Course Nursing assessment & vital signs reviewed: Yes Ordered Tests: Active Orders 24 hr Category Date Time Status IV Insertion STAT Care 11/24/19 22:25 Active Orthostatic Vital Signs STAT Care 11/24/19 22:27 Active CBC W DIFF Stat Lab 11/24/19 23:00 Completed CMP Stat Lab 11/24/19 23:00 Completed PROTIME WITH INR Stat Lab 11/24/19 23:00 Completed Medication Summary Discontinued Medications Generic Name Dose Route Start Last Admin Trade Name Nita PRN Reason Stop Dose Admin Metoprolol Tartrate 5 mg 11/24/19 22:45 11/24/19 22:48 Lopressor 5 Mg/5 Ml Injection IV 11/24/19 22:46 5 mg STAT ONE Administration Metoprolol Tartrate Confirm 11/24/19 22:48 Lopressor 5 Mg/5 Ml Injection Administered 11/24/19 22:49 Dose 5 mg IV .STK-MED ONE Lab/Rad Data: Laboratory Result Diagrams 11/24/19 23:00 11/24/19 23:00 Laboratory Results 11/24/19 11/24/19 11/24/19 Range/Units 23:00 23:00 23:00 WBC 7.0 (4.0-10.5) K/mm3 RBC 4.37 (4.1-5.4) M/mm3 Hgb 11.0 L (12.0-16.0) gm/dl Hct 34.4 L (35-47) % MCV 78.7 (78-100) fl MCH 25.2 L (26-32) pg MCHC 32.0 (32-36) g/dl RDW 15.4 H (11.5-14.0) % Plt Count 294 (150-450) K/mm3 MPV 9.7 (7.5-11.0) fl Gran % 53.8 (36.0-66.0) % Eos # (Auto) 0.21 (0-0.5) Absolute Lymphs (auto) 2.33 (1.0-4.6) Absolute Monos (auto) 0.68 (0.0-1.3) Lymphocytes % 33.1 (24.0-44.0) % Monocytes % 9.7 (0.0-12.0) % Eosinophils % 3.0 (0.00-5.0) % Basophils % 0.4 (0.0-0.4) % Absolute Granulocytes 3.78 (1.4-6.9) Basophils # 0.03 (0-0.4) PT 10.5 (9.95-12.35) SECONDS INR 0.93 (0.8-3.0) Sodium 139 (137-145) mmol/L Potassium 3.9 (3.5-5.1) mmol/L Chloride 107 (98-107) mmol/L Carbon Dioxide 27 (22-30) mmol/L Anion Gap 9.5 (5-15) MEQ/L BUN 18 H (7-17) mg/dL Creatinine 1.04 (0.52-1.04) mg/dL Estimated GFR 58.5 ML/MIN Glucose 119 H (74-106) mg/dL Calcium 9.3 (8.4-10.2) mg/dL Total Bilirubin 0.30 (0.2-1.3) mg/dL AST 24 (14-36) U/L ALT 22 (0-35) U/L Alkaline Phosphatase 119 (38-126) U/L Serum Total Protein 7.1 (6.3-8.2) g/dL Albumin 4.0 (3.5-5.0) g/dL - Progress Progress: unchanged Progress Note: 11/24/2019 Medical decision making: This patient is hemodynamically stable. She is not actively bleeding at this time. Her orthostatic vital signs are within normal limits. Patient's hemoglobin is 11. 2 months ago her hemoglobin was 11.9. Patient is not symptomatic. We will discharge her to home. If her symptoms become apparent such as dizziness lightheadedness shortness of breath and worsening rectal bleeding, the patient will report back to the emergency department. Counseled pt/family regarding: lab results, diagnosis, need for follow-up - Departure Departure Disposition: Home Clinical Impression: Rectal bleed, Hypertension Condition: Stable Critical Care Time: No Referrals: TINA KING [Primary Care Provider] - Additional Instructions: Plenty of fluids. Take your medication as prescribed. Return to the emergency room if you have a large amount of rectal bleeding or you are having bleeding rectally with symptoms. Follow-up with your primary care physician and retail wireless sales consultant next week for further management.
[2019-11-24] MEDS ORDERED: LOPRESSOR 5 MG/5 ML INJECTION IV ONE ×2 (22:45→22:48)
[2019-11-24 23:04] LABS: Absolute Neutrophil Ct (ANC) 3.78 (1.4-6.9); BASOPHIL % 0.4 % (0.0-0.4); Basophil (Absolute #) 0.03 (0-0.4); Eosinophil (Absolute #) 0.21 (0-0.5); Hematocrit 34.4 % (35-47); Lymphocyte (Absolute #) 2.33 (1.0-4.6); Lymphocytes % 33.1 % (24.0-44.0); Mean Cell Volume 78.7 fl (78-100); Mean Corpuscular Hemoglobin 25.2 pg (26-32); Mean Platelet Volume 9.7 fl (7.5-11.0); Monocyte (Absolute #) 0.68 (0.0-1.3); Monocytes % 9.7 % (0.0-12.0); Neutrophil % 53.8 % (36.0-66.0); Platelet Count 294 K/mm3 (150-450); Red Blood Count 4.37 M/mm3 (4.1-5.4); Red Cell Distribution Width 15.4 % (11.5-14.0)
[2019-11-24 23:11] LABS: INR 0.93 (0.8-3.0); PROTIME 10.5 SECONDS (9.95-12.35)
[2019-11-24 23:15] LABS: ANION GAP 9.5 MEQ/L (5-15); BILIRUBIN,TOTAL 0.3 mg/dL (0.2-1.3); Calcium 9.3 mg/dL (8.4-10.2); Creatinine 1 1.04 mg/dL (0.52-1.04); Potassium 3.9 mmol/L (3.5-5.1); Total Protein 7.1 g/dL (6.3-8.2)
[2019-11-24 23:42] VITALS: BP 155/85; PULSE 56; O2SAT 96
== END 2019-11-24 23:42 | disposition home or self-care (01) ==
LOC: ED 22:16
DX: K62.5 Hemorrhage of anus and rectum (principal); I10 Essential (primary) hypertension; Z79.899 Other long term (current) drug therapy; I50.9 Heart failure, unspecified; I25.10 Atherosclerotic heart disease of native coronary artery without angina pectoris; E78.00 Pure hypercholesterolemia, unspecified; I25.2 Old myocardial infarction; Z98.61 Coronary angioplasty status; Z95.1 Presence of aortocoronary bypass graft
CPT/HCPCS: 36000; 36415; 80053; 85025; 85610; 96374; 99284

== ENCOUNTER 2020-04-12 22:30 | Emergency (ER) | payer MEDICAID, OTHER ==
[2020-04-12 22:57] VITALS: O2SAT 98
[2020-04-12] MEDS ORDERED: TORAdol 30 mg Injection IM ONE (22:57)
[2020-04-12] MEDS ORDERED: Toprol Xl 50 MG PO STA (22:59)
--- NOTE | 2020-04-12 22:59 | ERPHSYRPT ---
- History of Present Illness Time Seen by Provider: 04/12/20 22:58 Source: patient Exam Limitations: no limitations Patient Subjective Stated Complaint: pt states that tonight at 6 pm she began to have tingling in her rt foot, pt states that she was sitting down when she r ealized her foot was swelling, pt states that the swelling has increased throughout the night, pt states that she has been out of blood pressure medication due to no insurance, pt states that pain is worse with ambulation, pt states that she has sit quit a bit today Triage Nursing Assessment: pt ambulated into the er, pt is axo x3, pt c/o rt foot edema, trace edema present to BLE, pt hypertensive, bounding pedial pulses dwaine, c/o 4/10 pain to rt foot, c/o decreased movement in toes Physician History: pt states that tonight at 6 pm she began to have tingling in her rt foot, pt states that she was sitting down when she realized her foot was swelling, pt states that the swelling has increased throughout the night, pt states that she has been out of blood pressure medication due to no insurance, pt states that pain is worse with ambulation, pt states that she has to sit quit a bit today Timing/Duration: today Severity: mild Associated Symptoms: denies symptoms Allergies/Adverse Reactions: hydrocodone bitartrate [From Vicodin] Allergy (Mild, Verified 04/12/20 22:40) Itching oxycodone [Oxycodone] Allergy (Mild, Verified 04/12/20 22:40) Itching Sulfa (Sulfonamide Antibiotics) [Sulfa(Sulfonamide Antibiotics)] Allergy (Mild, Verified 04/12/20 22:40) Hives silk Adverse Reaction (Intermediate, Verified 04/12/20 22:40) Blisters Silk surgical tape codeine Adverse Reaction (Mild, Verified 04/12/20 22:40) Itching meperidine HCl [From Demerol] Adverse Reaction (Mild, Verified 04/12/20 22:40) Vomiting Home Medications: Aspirin 81 mg PO DAILY 02/16/15 [History] Atorvastatin Calcium [Lipitor] 80 mg PO HS 02/16/15 [History] Dextroamphetamine/Amphetamine [Adderall 20 mg Tablet] 30 mg PO DAILY 07/09/17 [History] Trazodone HCl 300 mg PO HS 02/21/19 [History] Omeprazole 40 mg PO HS 11/24/19 [History] Hx Tetanus, Diphtheria Vaccination/Date Given: No (unknown) Hx Influenza Vaccination/Date Given: Yes Hx Pneumococcal Vaccination/Date Given: Yes Travel Risk - International Travel Have you traveled outside of the country in past 3 weeks: No - Coronavirus Screening Are you exhibiting any of the following symptoms?: No Close contact with a COVID-19 positive Pt in past 14-21 Days: No - Review of Systems Constitutional: No Fever, No Chills Eyes: No Symptoms Ears, Nose, & Throat: No Symptoms Respiratory: No Cough, No Dyspnea Cardiac: No Chest Pain, No Edema, No Syncope Abdominal/Gastrointestinal: No Abdominal Pain, No Nausea, No Vomiting, No Diarrhea Genitourinary Symptoms: No Dysuria Musculoskeletal: Joint Pain (right foot big toe joint pain), No Back Pain, No Neck Pain Skin: No Rash Neurological: No Dizziness, No Focal Weakness, No Sensory Changes Psychological: No Symptoms Endocrine: No Symptoms All Other Systems: Reviewed and Negative - Past Medical History Pertinent Past Medical History: Yes Neurological History: Migraines ENT History: No Pertinent History Cardiac History: Angina, Congestive Heart Failure, Coronary Artery Disease, High Cholesterol, Hypertension, Myocardial Infarction ([place]) Respiratory History: Sleep Apnea Endocrine Medical History: No Pertinent History Musculoskeletal History: Arthritis GI Medical History: GERD, Gallbladder Disease, GI Bleed History: Renal Disease, Other Psycho-Social History: Anxiety, Depression Female Reproductive Disorders: Abnormal Uterine Bleeding, Endometriosis Other Medical History: Renal calculus. GOUT - RLS - Past Surgical History Past Surgical History: Yes Neuro Surgical History: No Pertinent History Cardiac: CABG, Cardiac Catheterization Respiratory: No Pertinent History Gastrointestinal: Cholecystectomy Genitourinary: Kidney Surgery Musculoskeletal: Other Female Surgical History: Hysterectomy Other Surgical History: knee muscle lateral release dwaine , kidney stone removal x 7, hernia repair - Social History Smoking Status: Never smoker Exposure to second hand smoke: No Drug Use: none Patient Lives Alone: No Significant Family History: heart disease, hypertension - Female History Hx Now: No - Nursing Vital Signs Nursing Vital Signs: Initial Vital Signs Temperature 97.6 F 04/12/20 22:42 Pulse Rate 72 04/12/20 22:42 Respiratory Rate 18 04/12/20 22:42 Blood Pressure 213/109 04/12/20 22:42 O2 Sat by Pulse Oximetry 98 04/12/20 22:42 Pain Scale Pain Intensity 4 - Physical Exam General Appearance: no apparent distress, alert Eye Exam: PERRL/EOMI, eyes nml inspection Ears, Nose, Throat Exam: normal ENT inspection, TMs normal, pharynx normal, moist mucous membranes Neck Exam: normal inspection, non-tender, supple, full range of motion Respiratory Exam: normal breath sounds, lungs clear, No respiratory distress Cardiovascular Exam: regular rate/rhythm, normal heart sounds, normal peripheral pulses Gastrointestinal/Abdomen Exam: soft, normal bowel sounds, No tenderness, No mass Back Exam: normal inspection, normal range of motion, No CVA tenderness, No vertebral tenderness Extremity Exam: normal inspection, normal range of motion, pelvis stable, other (pain and tenderness around 1st matatarsal joint area) Neurologic Exam: alert, oriented x 3, cooperative, normal mood/affect, nml cerebellar function, nml station & gait, sensation nml, No motor deficits Skin Exam: normal color, warm, dry, No rash Lymphatic Exam: No adenopathy SpO2: 98 - Course Nursing assessment & vital signs reviewed: Yes Ordered Tests: Medication Summary Discontinued Medications Generic Name Dose Route Start Last Admin Trade Name Freq PRN Reason Stop Dose Admin Ketorolac Tromethamine 60 mg 04/12/20 22:57 04/12/20 23:00 Toradol 30 Mg Injection IM 04/12/20 22:58 60 mg STAT ONE Administration Ketorolac Tromethamine Confirm 04/12/20 23:00 Toradol 30 Mg Injection Administered 04/12/20 23:01 Dose 60 mg .ROUTE .STK-MED ONE Lisinopril 20 mg 04/12/20 23:00 Zestril 20 Mg PO 04/12/20 23:01 STAT ONE Metoprolol Succinate 50 mg 04/12/20 22:59 Toprol Xl 50 Mg PO 04/12/20 23:00 HS STA Metoprolol Tartrate Confirm 04/12/20 23:03 Lopressor 50 Mg Administered 04/12/20 23:04 Dose 50 mg .ROUTE .STK-MED ONE - Progress Progress: improved, pain not gone completely Counseled pt/family regarding: diagnosis, need for follow-up - Departure Departure Disposition: Home Clinical Impression: Gout attack Qualifiers: Gout site: foot Gout etiology: idiopathic Laterality: right Qualified Code(s): M10.071 - Idiopathic gout, right ankle and foot Condition: Stable Critical Care Time: No Referrals: REED CAM [ACTIVE STAFF] - Follow Up with PCP/3 days Instructions: Lifestyle Changes to Manage Gout, Gout (DC) Additional Instructions: Discharge/Care Plan BHUMIKA BERUMEN was seen on 04/12/20 in the Emergency Room. The patient was counseled regarding Diagnosis,Lab results, Imaging studies, need for follow up and when to return to the Emergency Room. Prescriptions given: Discharge Note I have spoken with the patient and/or caregivers. I have explained the patient's condition, diagnosis and treatment plan based on the information available to me at this time. I have answered the patient's and/or caregiver's questions and addressed any concerns. The patient and/or caregivers have as good understanding of the patient's diagnosis, condition and treatment plan as can be expected at this point. The vital signs have been stable. The patient's condition is stable and appropriate for discharge from the emergency department. The patient will pursue further outpatient evaluation with the primary care physician or other designated or consulting physician as outlined in the discharge instructions. The patient and/or caregivers are agreeable to this plan of care and follow-up instructions have been explained in detail. The patient and/or caregivers have received these instruction. The patient/and or caregivers are aware that any significant change in condition or worsening of symptoms shou ld prompt an immediate return to this or the closest emergency department or call 911. Prescriptions: Indomethacin 25 mg [Indocin 25 MG] 25 mg PO TID #15 capsule lisinopriL [Lisinopril] 5 mg PO HS #90 tablet Metoprolol Tartrate 12.5 mg PO BID #60 tablet
[2020-04-12] MEDS ORDERED: TORAdol 30 mg Injection ONE (23:00)
[2020-04-12] MEDS ORDERED: Zestril 20 MG PO ONE (23:00)
[2020-04-12] MEDS ORDERED: Lopressor 50 MG ONE (23:03)
[2020-04-12] MEDS ORDERED: Toprol-Xl 25MG Tablets ONE (23:05)
[2020-04-13 00:05] VITALS: BP 134/64
[2020-04-13 00:10] VITALS: PULSE 65
== END 2020-04-13 00:07 | disposition home or self-care (01) ==
LOC: ED 22:30
DX: M10.071 Idiopathic gout, right ankle and foot (principal)
CPT/HCPCS: 96372; 99284; J1885; A9270-GY

== ENCOUNTER 2021-08-24 09:21 | Emergency (ER) | payer OTHER ==
[2021-08-24] MEDS ORDERED: Sodium Chloride 0.9% 1000 ML 1,000 ML IV STA (10:15)
--- NOTE | 2021-08-24 10:15 | ERPHSYRPT ---
- History of Present Illness Time Seen by Provider: 08/24/21 09:36 Historian: patient Exam Limitations: no limitations Patient Subjective Stated Complaint: pt reports right lower quad/pelvic pain. on and off for one week with intermittent chills as well, loose stools, concerned for her appendix. Triage Nursing Assessment: pt aox3, ambulatory to trt area with no difficulties, afebrile, resps easy and non labored, cap refill < 3 seconds, radial pulses strong and equal, abd soft, tender to the RLQ/ pelvis, n orebound tenderness, pt skin pink warm dry. Physician History: Patient is a 56-year-old female presents to our ED with right lower quadrant pain. Pain is been present for approximately 1 week. Patient states pain is intermittent. No associated fever. No trauma. No nausea or vomiting. Patient admits to loose stools. Patient denies urinary symptomology. Patient denies vaginal discharge. Patient denies the possibility of STI. Symptoms are mild to moderate in intensity palpation reproduces symptoms. Patient voices no other complaints or concerns at this time. Timing/Duration: week(s) Activities at Onset: none Quality: aching Abdominal Pain Onset Location: RLQ Pain Radiation: no radiation Severity of Pain-Max: moderate Severity of Pain-Current: mild Modifying Factors: Improves With: palpation Associated Symptoms: diarrhea Previous symptoms: no prior history Allergies/Adverse Reactions: hydrocodone bitartrate [From Vicodin] Allergy (Mild, Verified 08/24/21 09:39) Itching oxycodone [Oxycodone] Allergy (Mild, Verified 08/24/21 09:39) Itching Sulfa (Sulfonamide Antibiotics) [Sulfa(Sulfonamide Antibiotics)] Allergy (Mild, Verified 08/24/21 09:39) Hives silk Adverse Reaction (Intermediate, Verified 08/24/21 09:39) Blisters Silk surgical tape codeine Adverse Reaction (Mild, Verified 08/24/21 09:39) Itching meperidine HCl [From Demerol] Adverse Reaction (Mild, Verified 08/24/21 09:39) Vomiting Home Medications: Aspirin 81 mg PO DAILY 02/16/15 [History] Atorvastatin Calcium [Lipitor] 80 mg PO HS 02/16/15 [History] Dextroamphetamine/Amphetamine [Adderall 20 mg Tablet] 30 mg PO DAILY 07/09/17 [History] Trazodone HCl 300 mg PO HS 02/21/19 [History] Omeprazole 40 mg PO HS 11/24/19 [History] Hx Tetanus, Diphtheria Vaccination/Date Given: Yes Hx Influenza Vaccination/Date Given: Yes Hx Pneumococcal Vaccination/Date Given: Yes Travel Risk - International Travel Have you traveled outside of the country in past 3 weeks: No - Coronavirus Screening Are you exhibiting any of the following symptoms?: No Close contact with a COVID-19 positive Pt in past 14-21 Days: No - Vaccine Status Have you recieved a Covid-19 vaccination: Yes [employer]: Moderna - Vaccination Dates Date of 2cond Vaccination (if applicable): 12/18/2020 - Review of Systems Constitutional: No Symptoms, No Fever, No Chills Eyes: No Symptoms Ears, Nose, & Throat: No Symptoms Respiratory: No Symptoms, No Cough, No Dyspnea Cardiac: No Symptoms, No Chest Pain, No Edema, No Syncope Abdominal/Gastrointestinal: No Symptoms, No Abdominal Pain, No Nausea, No Vomiting, No Diarrhea Genitourinary Symptoms: No Symptoms, No Dysuria Musculoskeletal: No Symptoms, No Back Pain, No Neck Pain Skin: No Symptoms, No Rash Neurological: No Symptoms, No Dizziness, No Focal Weakness, No Sensory Changes Psychological: No Symptoms Endocrine: No Symptoms Hematologic/Lymphatic: No Symptoms Immunological/Allergic: No Symptoms All Other Systems: Reviewed and Negative - Past Medical History Pertinent Past Medical History: Yes Neurological History: Migraines ENT History: No Pertinent History Cardiac History: Angina, Congestive Heart Failure, Coronary Artery Disease, High Cholesterol, Hypertension, Myocardial Infarction ([place]) Respiratory History: Sleep Apnea Endocrine Medical History: No Pertinent History Musculoskeletal History: Arthritis GI Medical History: GERD, Gallbladder Disease, GI Bleed History: Renal Disease, Other Psycho-Social History: Anxiety, Depression Female Reproductive Disorders: Abnormal Uterine Bleeding, Endometriosis Other Medical History: Renal calculus. GOUT - RLS - Past Surgical History Past Surgical History: Yes Neuro Surgical History: No Pertinent History Cardiac: CABG, Cardiac Catheterization Respiratory: No Pertinent History Gastrointestinal: Cholecystectomy Genitourinary: Kidney Surgery Musculoskeletal: Other Female Surgical History: Hysterectomy Other Surgical History: knee muscle lateral release dwaine , kidney stone removal x 7, hernia repair - Social History Smoking Status: Never smoker Exposure to second hand smoke: No Drug Use: none Patient Lives Alone: No Significant Family History: heart disease, hypertension - Female History Hx Last Menstrual Period: hyst Hx Now: No - Nursing Vital Signs Nursing Vital Signs: Initial Vital Signs Temperature 96.5 F 08/24/21 09:28 Pulse Rate 68 08/24/21 09:28 Respiratory Rate 20 08/24/21 09:28 Blood Pressure 160/106 08/24/21 09:28 O2 Sat by Pulse Oximetry 99 08/24/21 09:28 Pain Scale Pain Intensity 2 - Physical Exam General Appearance: no apparent distress, alert Eye Exam: PERRL/EOMI, eyes nml inspection Ears, Nose, Throat Exam: normal ENT inspection, pharynx normal, moist mucous membranes Neck Exam: normal inspection, non-tender, supple, full range of motion Respiratory Exam: normal breath sounds, lungs clear, airway intact, No respiratory distress Cardiovascular Exam: regular rate/rhythm, normal heart sounds, normal peripheral pulses Gastrointestinal/Abdomen Exam: soft, tenderness (Tenderness palpation right lower quadrant. Overlying soft tissue intact. No rebound.), No mass Pelvic Exam: not done Rectal Exam: deferred Back Exam: normal inspection, normal range of motion, No CVA tenderness, No vertebral tenderness Extremity Exam: normal inspection, normal range of motion, pelvis stable Neurologic Exam: alert, oriented x 3, cooperative, normal mood/affect, nml cerebellar function, sensation nml, No motor deficits Skin Exam: normal color, warm, dry Lymphatic Exam: No adenopathy SpO2 Interpretation: normal SpO2: 99 O2 Delivery: Room Air - Course Nursing assessment & vital signs reviewed: Yes - CT Exams Abdomen/Pelvis CT Interpretation: Tele-radiologist Report (Post CABG, post gastrointestinal bypass and cholecystectomy hysterectomy, no appendicitis. Stable hiatal hernia and moderate sized fatty umbilical hernia. Diverticulosis. Previous ureteral stone passed.) Ordered Tests: Active Orders 24 hr Category Date Time Status IV Insertion STAT Care 08/24/21 10:15 Active ABDOMEN AND PELVIS W CONTRAST [CT] Stat Exams 08/24/21 10:16 Completed CBC W DIFF Stat Lab 08/24/21 10:37 Completed CMP Stat Lab 08/24/21 10:37 Completed TROPONIN Q3H Lab 08/24/21 10:37 Completed TROPONIN Q3H Lab 08/24/21 12:48 Received TROPONIN Q3H Lab 08/24/21 16:15 Ordered TROPONIN Q3H Lab 08/24/21 19:15 Ordered TROPONIN Q3H Lab 08/24/21 22:15 Ordered UA W/RFX UR CULTURE Stat Lab 08/24/21 10:19 Completed Medication Summary Discontinued Medications Generic Name Dose Route Start Last Admin Trade Name Nita PRN Reason Stop Dose Admin Sodium Chloride 1,000 mls @ 999 mls/hr 08/24/21 10:15 08/24/21 11:41 Sodium Chloride 0.9% 1000 Ml IV 08/24/21 11:15 Infused .Q1H1M STA Infusion Sodium Chloride Confirm 08/24/21 10:22 Sodium Chloride 0.9% 1000 Ml Administered 08/24/21 10:23 Dose 1,000 mls @ ud .ROUTE .STK-MED ONE Morphine Sulfate 4 mg 08/24/21 10:19 08/24/21 10:26 Morphine Sulfate 4 Mg/Ml Injection IV 08/24/21 10:20 4 mg STAT ONE Administration Morphine Sulfate Confirm 08/24/21 10:22 Morphine Sulfate 4 Mg/Ml Injection Administered 08/24/21 10:23 Dose 4 mg .ROUTE .STK-MED ONE Ondansetron HCl 4 mg 08/24/21 10:42 08/24/21 10:44 Ondansetron Hcl 4 Mg/2 Ml Vial IV 08/24/21 10:43 4 mg STAT ONE Administration Ondansetron HCl Confirm 08/24/21 10:43 Ondansetron Hcl 4 Mg/2 Ml Vial Administered 08/24/21 10:44 Dose 4 mg .ROUTE .STK-MED ONE Lab/Rad Data: Laboratory Result Diagrams 08/24/21 10:37 08/24/21 10:37 Laboratory Results 08/24/21 08/24/21 08/24/21 Range/Units 10:37 10:37 10:37 WBC 7.3 (4.0-10.5) K/mm3 RBC 5.16 (4.1-5.4) M/mm3 Hgb 12.4 (12.0-16.0) gm/dl Hct 41.5 (35-47) % MCV 80.4 (78-100) fl MCH 24.0 L (26-32) pg MCHC 29.9 L (32-36) g/dl RDW 18.8 H (11.5-14.0) % Plt Count 321 (150-450) K/mm3 MPV 10.2 (7.5-11.0) fl Gran % 58.3 (36.0-66.0) % Eos # (Auto) 0.15 (0-0.5) Absolute Lymphs (auto) 2.12 (1.0-4.6) Absolute Monos (auto) 0.73 (0.0-1.3) Lymphocytes % 29.2 (24.0-44.0) % Monocytes % 10.1 (0.0-12.0) % Eosinophils % 2.1 (0.00-5.0) % Basophils % 0.3 (0.0-0.4) % Absolute Granulocytes 4.23 (1.4-6.9) Basophils # 0.02 (0-0.4) Sodium 139 (137-145) mmol/L Potassium 3.9 (3.5-5.1) mmol/L Chloride 104 (98-107) mmol/L Carbon Dioxide 29 (22-30) mmol/L Anion Gap 10.1 (5-15) MEQ/L BUN 17 (7-17) mg/dL Creatinine 0.97 (0.52-1.04) mg/dL Estimated GFR > 60.0 ML/MIN Glucose 99 (74-106) mg/dL Calcium 8.8 (8.4-10.2) mg/dL Total Bilirubin 0.30 (0.2-1.3) mg/dL AST 32 (14-36) U/L ALT 26 (0-35) U/L Alkaline Phosphatase 98 (38-126) U/L Troponin I < 0.012 (0.000-0.034) ng/mL Serum Total Protein 6.4 (6.3-8.2) g/dL Albumin 3.6 (3.5-5.0) g/dL Urine Color (YELLOW) Urine Appearance (CLEAR) Urine pH (5-6) Ur Specific [place] (1.005-1.025) Urine Protein (Negative) Urine Ketones (NEGATIVE) Urine Blood (0-5) Zain/ul Urine Nitrite (NEGATIVE) Urine Bilirubin (NEGATIVE) Urine Urobilinogen (0-1) mg/dL Ur Leukocyte Esterase (NEGATIVE) Urine WBC (Auto) (0-5) /HPF Urine RBC (Auto) (0-2) /HPF U Epithel Cells (Auto) (FEW) /HPF Urine Bacteria (Auto) (NEGATIVE) /HPF Calcium Oxalate Crystal (NEGATIVE) /HPF Urine Mucus (Auto) (NEGATIVE) /HPF Urine Culture Reflexed (NO) Urine Glucose (NEGATIVE) mg/dL 08/24/21 Range/Units 10:19 WBC (4.0-10.5) K/mm3 RBC (4.1-5.4) M/mm3 Hgb (12.0-16.0) gm/dl Hct (35-47) % MCV (78-100) fl MCH (26-32) pg MCHC (32-36) g/dl RDW (11.5-14.0) % Plt Count (150-450) K/mm3 MPV (7.5-11.0) fl Gran % (36.0-66.0) % Eos # (Auto) (0-0.5) Absolute Lymphs (auto) (1.0-4.6) Absolute Monos (auto) (0.0-1.3) Lymphocytes % (24.0-44.0) % Monocytes % (0.0-12.0) % Eosinophils % (0.00-5.0) % Basophils % (0.0-0.4) % Absolute Granulocytes (1.4-6.9) Basophils # (0-0.4) Sodium (137-145) mmol/L Potassium (3.5-5.1) mmol/L Chloride (98-107) mmol/L Carbon Dioxide (22-30) mmol/L Anion Gap (5-15) MEQ/L BUN (7-17) mg/dL Creatinine (0.52-1.04) mg/dL Estimated GFR ML/MIN Glucose (74-106) mg/dL Calcium (8.4-10.2) mg/dL Total Bilirubin (0.2-1.3) mg/dL AST (14-36) U/L ALT (0-35) U/L Alkaline Phosphatase (38-126) U/L Troponin I (0.000-0.034) ng/mL Serum Total Protein (6.3-8.2) g/dL Albumin (3.5-5.0) g/dL Urine Color YELLOW (YELLOW) Urine Appearance SLIGHTLY CLOUDY (CLEAR) Urine pH 5.0 (5-6) Ur Specific [place] 1.027 (1.005-1.025) Urine Protein 100 (Negative) Urine Ketones NEGATIVE (NEGATIVE) Urine Blood NEGATIVE (0-5) Zain/ul Urine Nitrite NEGATIVE (NEGATIVE) Urine Bilirubin NEGATIVE (NEGATIVE) Urine Urobilinogen 2 (0-1) mg/dL Ur Leukocyte Esterase NEGATIVE (NEGATIVE) Urine WBC (Auto) 3-5 (0-5) /HPF Urine RBC (Auto) 6-10 (0-2) /HPF U Epithel Cells (Auto) RARE (FEW) /HPF Urine Bacteria (Auto) RARE (NEGATIVE) /HPF Calcium Oxalate Crystal 6-10 (NEGATIVE) /HPF Urine Mucus (Auto) SLIGHT (NEGATIVE) /HPF Urine Culture Reflexed NO (NO) Urine Glucose NEGATIVE (NEGATIVE) mg/dL - Progress Progress: improved Progress Note: Patient reassessed. She feels well. No acute findings observed on work-up today. Patient states he is ready for discharge. Patient advised of the CT findings as well as the urine findings. Patient has hematuria and proteinuria. These will need to be looked into. BUN/creatinine appear normal. The kidney appears to be structurally normal on CT scan. Plan of care discussed with patient. She agrees to follow-up with her primary care doctor within 48 hours for evaluation. She voices no other complaints or concerns at this time. Portions of this note were created with voice recognition technology. There may be grammatical, spelling, punctuation or sound alike errors 08/24/21 12:46 Counseled pt/family regarding: lab results, diagnosis, need for follow-up, rad results - Departure Departure Disposition: Home Clinical Impression: Proteinuria, Hematuria, Coronary artery calcification, Hiatal hernia, Lung granuloma, Umbilical hernia, Diverticulosis, Arthritis of spine, Atherosclerosis Condition: Stable Critical Care Time: No Referrals: REED CAM MD [Primary Care Provider] - Follow up/PCP as directed Additional Instructions: Discharge/Care Plan BHUMIKA BERUMEN was seen on 08/24/21 in the Emergency Room. The patient was counseled regarding Diagnosis,Lab results, Imaging studies, need for follow up and when to return to the Emergency Room. Prescriptions given: Discharge Note I have spoken with the patient and/or caregivers. I have explained the patient's condition, diagnosis and treatment plan based on the information available to me at this time. I have answered the patient's and/or caregiver's questions and addressed any concerns. The patient and/or caregivers have as good understanding of the patient's diagnosis, condition and treatment plan as can be expected at this point. The vital signs have been stable. The patient's condition is stable and appropriate for discharge from the emergency department. The patient will pursue further outpatient evaluation with the primary care physician or other designated or consulting physician as outlined in the discharge instructions. The patient and/or caregivers are agreeable to this plan of care and follow-up instructions have been explained in detail. The patient and/or caregivers have received these instruction. The patient/and or caregivers are aware that any significant change in condition or worsening of symptoms should prompt an immediate return to this or the closest emergency department or call 911.
[2021-08-24] MEDS ORDERED: MORPHINE SULFATE 4 MG INJ IV ONE (10:19)
[2021-08-24] MEDS ORDERED: MORPHINE SULFATE 4 MG INJ ONE (10:22)
[2021-08-24] MEDS ORDERED: Sodium Chloride 0.9% 1000 ML 1,000 ML ONE (10:22)
[2021-08-24 10:41] LABS: Absolute Neutrophil Ct (ANC) 4.23 (1.4-6.9); BASOPHIL % 0.3 % (0.0-0.4); Basophil (Absolute #) 0.02 (0-0.4); Eosinophil % 2.1 % (0.00-5.0); Eosinophil (Absolute #) 0.15 (0-0.5); Hematocrit 41.5 % (35-47); Hemoglobin 12.4 gm/dl (12.0-16.0); Lymphocyte (Absolute #) 2.12 (1.0-4.6); Lymphocytes % 29.2 % (24.0-44.0); Mean Cell Volume 80.4 fl (78-100); Mean Corpuscular Hgb Concent. 29.9 g/dl (32-36); Mean Platelet Volume 10.2 fl (7.5-11.0); Monocyte (Absolute #) 0.73 (0.0-1.3); Monocytes % 10.1 % (0.0-12.0); Neutrophil % 58.3 % (36.0-66.0); Platelet Count 321 K/mm3 (150-450); Red Blood Count 5.16 M/mm3 (4.1-5.4); Red Cell Distribution Width 18.8 % (11.5-14.0); White Blood Count 7.3 K/mm3 (4.0-10.5)
[2021-08-24] MEDS ORDERED: Zofran 4 MG/2 ML VIAL IV ONE (10:42)
[2021-08-24] MEDS ORDERED: Zofran 4 MG/2 ML VIAL ONE (10:43)
[2021-08-24 11:11] LABS: Appearance SLIGHTLY CLOUDY (CLEAR); Bacteria RARE /HPF (NEGATIVE); Bilirubin NEGATIVE (NEGATIVE); Blood NEGATIVE Ery/ul (0-5); Epithelial Cells RARE /HPF (FEW); Glucose NEGATIVE (NEGATIVE); Ketones NEGATIVE (NEGATIVE); Leukocyte Esterase NEGATIVE (NEGATIVE); Mucus SLIGHT /HPF (NEGATIVE); Nitrite NEGATIVE (NEGATIVE); Protein,Urine Dip 100 (Negative); Specific Gravity 1.027 (1.005-1.025); Urobilinogen 2 mg/dL (0-1)
[2021-08-24 11:21] LABS: ALBUMIN 3.6 g/dL (3.5-5.0); ALKALINE PHOSPHATASE 98 U/L (38-126); ANION GAP 10.1 MEQ/L (5-15); BLOOD UREA NITROGEN 17 mg/dL (7-17); CHLORIDE 104 mmol/L (98-107); Calcium 8.8 mg/dL (8.4-10.2); Carbon Dioxide 29 mmol/L (22-30); Creatinine 1 0.97 mg/dL (0.52-1.04); EST GLOMERULAR FILTRATION RATE > 60.0 ML/MIN; Glucose 99 mg/dL (74-106); Potassium 3.9 mmol/L (3.5-5.1); SGOT/AST 32 U/L (14-36); SGPT/ALT 26 U/L (0-35); SODIUM 139 mmol/L (137-145); Total Protein 6.4 g/dL (6.3-8.2)
--- NOTE | 2021-08-24 12:35 | XRAY ---
Exam: CT of the abdomen and pelvis with IV contrast from 08/24/2021. CTDI: 23.80 mGy Comparison: CT of the abdomen and pelvis without IV contrast from 06/22/2017. Indication: 56-year-old female with right lower abdominal pain and nausea for 5 days; ? Appendicitis. The patient has a history of prior CABG, hysterectomy, hernia repair, and cholecystectomy. Technique: Post-IV contrast axial images were obtained through the abdomen and pelvis during automated injection of 80 cc of Isovue-370 contrast material. No oral contrast was given. Reconstructed coronal and sagittal images were created and reviewed. Findings: Surgical suture material and midline sternal wires are seen consistent with prior CABG. The heart size is normal. There is distal right coronary artery vascular calcification. There is mild hiatal hernia representing no change. The visualized lung bases reveal a calcified granuloma at the medial posterior left lung base. Minimal bibasilar linear scarring/atelectasis is seen. Prominent epicardial fat is seen about the heart. The liver and spleen appear of unremarkable size and uniform attenuation. No focal hepatic or splenic mass is seen. No intrahepatic biliary duct distention is seen. Surgical clips consistent with prior cholecystectomy are noted. There are surgical clips within the medial aspect of the left upper abdomen consistent with prior gastric bypass surgery representing no change. The pancreas and adrenal glands appear unremarkable. The kidneys appear of unremarkable size. I see a mild to moderate extrarenal pelvis bilaterally. This is unchanged. No renal mass is seen. The renal parenchyma enhances normally. Prior calcification within the distal left ureter near the left ureterovesical junction on 06/22/2017 is no longer present. The ureters appear unremarkable on the current study. The urinary bladder is distended and reveals no significant abnormality. A mildly calcified and normal diameter abdominal aorta is seen. I also note some vascular calcification within the iliac arteries and common femoral arteries bilaterally. No abdominal aortic aneurysm or abnormal retroperitoneal lymphadenopathy is seen. There is no free intraperitoneal air. A moderate sized fat-containing umbilical hernia is seen measuring 6.5 cm in width and 8.3 cm in craniocaudal dimension. There appears to be either some suture material or calcification within the superior aspect of this fatty umbilical hernia. These findings are unchanged. The bowel is not distended. Some stool is seen within the right hemicolon. Scattered diverticulosis without diverticulitis is seen within the descending colon. There is no bowel wall thickening. The appendix is identified on delayed axial images #47 through #55 and appears unremarkable. Within the pelvis, the uterus is surgically absent. No abnormal pelvic mass, pelvic lymphadenopathy, or free intraperitoneal fluid is seen. No significant abnormality is seen within either femoral region, except for some vascular calcification. The skeleton reveals no acute fracture or aggressive bone lesion. Vertebral endplate spurring is seen throughout the visualized lower thoracolumbar spine. Facet osteoarthritis is seen at the lower 3 lumbar interspace levels, greatest at L4-L5 bilaterally and at L5-S1 on the left. Some vacuum phenomena is seen within the L5-S1 disc. Impression: 1. Status post CABG, gastrointestinal bypass surgery, cholecystectomy, and hysterectomy. 2. I see no findings of acute appendicitis within the right lower quadrant. 3. Stable hiatal hernia and moderate sized fatty umbilical hernia are again seen. 4. Stable descending colon diverticulosis without evidence of diverticulitis. 5. Prior distal left ureteral stone is no longer present. Both kidneys function. 6. Moderate atherosclerotic vascular calcification and degenerative changes within the lower lumbar spine are seen. 7. No other acute process is seen within the abdomen or pelvis.,
[2021-08-24 12:39] VITALS: O2SAT 99
[2021-08-24 13:00] VITALS: BP 178/90; PULSE 76
== END 2021-08-24 12:58 | disposition home or self-care (01) ==
LOC: ED 09:21
DX: K57.90 Diverticulosis of intestine, part unspecified, without perforation or abscess without bleeding (principal); R80.9 Proteinuria, unspecified; R31.9 Hematuria, unspecified; I25.2 Old myocardial infarction; Z98.61 Coronary angioplasty status; Z95.1 Presence of aortocoronary bypass graft; K44.9 Diaphragmatic hernia without obstruction or gangrene; J84.10 Pulmonary fibrosis, unspecified; K42.9 Umbilical hernia without obstruction or gangrene; M47.819 Spondylosis without myelopathy or radiculopathy, site unspecified; I11.0 Hypertensive heart disease with heart failure; I50.9 Heart failure, unspecified; I25.119 Atherosclerotic heart disease of native coronary artery with unspecified angina pectoris
CPT/HCPCS: 36000; 36415; 74177; 80053; 81001; 84484; 85025; 96360; 96374; 96375; 99284; J2270; J2405

== ENCOUNTER 2021-12-11 07:14 | Emergency (ER) | payer OTHER ==
[2021-12-11] MEDS ORDERED: TORAdol 30 mg Injection ONE (07:54)
[2021-12-11] MEDS ORDERED: Norflex 60 MG/2 ML ONE (07:54)
--- NOTE | 2021-12-11 07:55 | ERPHSYRPT ---
- History of Present Illness Time Seen by Provider: 12/11/21 07:31 Source: patient Exam Limitations: no limitations Patient Subjective Stated Complaint: Low back pain Triage Nursing Assessment: Patient ambulated back to ED and transferred self to bed. Patient A+O X 3. Patient's skin pink, warm and dry. Patient complains of lower back pain 6/10 constant aching with intermittent sharp pain. Patient states the pain goes away when she lies flat. Patient states the pain started last Tuesday after sitting on her couch, but the pain has gotten worse. Patient denies injury or trauma. No visible injuries or bruising noted to lower back. Physician History: 56-year-old female with history of coronary artery disease, hypertension, hyperlipidemia presented in the ER with chief complaint of low back pain for almost 6 days. Patient reports she was sitting on a couch with her left leg up on the chair arm, when she tried to get up it was getting difficult and started to feel pain in the low back across more on the left side. Pain is more with movements of left lower extremity. Denies any loss of bowel or bladder control. No numbness tingling or weakness of extremities. Pain is gradually worsening. Timing/Duration: day(s) (6), sudden, worse Method of Injury: unknown Quality: sharp, aching Back Pain Location: lumbar spine, paraspinous muscles Severity of Pain-Max: moderate Severity of Pain-Current: moderate Modifying Factors: Improves With: immobilization. Worsens With: movement Associated Symptoms: lower back pain, No fever, No chills, No urinary incontinence, No loss of bowel control, No problems urinating, No light- headedness, No dizziness, No weakness, No sensory/motor loss, No tingling in legs/feet Previous symptoms: same symptoms as today Allergies/Adverse Reactions: hydrocodone bitartrate [From Vicodin] Allergy (Mild, Verified 12/11/21 07:28) Itching oxycodone [Oxycodone] Allergy (Mild, Verified 12/11/21 07:28) Itching Sulfa (Sulfonamide Antibiotics) [Sulfa(Sulfonamide Antibiotics)] Allergy (Mild, Verified 12/11/21 07:28) Hives silk Adverse Reaction (Intermediate, Verified 12/11/21 07:28) Blisters Silk surgical tape codeine Adverse Reaction (Mild, Verified 12/11/21 07:28) Itching meperidine HCl [From Demerol] Adverse Reaction (Mild, Verified 12/11/21 07:28) Vomiting Home Medications: Aspirin 81 mg PO DAILY 02/16/15 [History] Atorvastatin Calcium [Lipitor] 80 mg PO HS 02/16/15 [History] Dextroamphetamine/Amphetamine [Adderall 20 mg Tablet] 30 mg PO DAILY 07/09/17 [History] Trazodone HCl 300 mg PO HS 02/21/19 [History] Omeprazole 40 mg PO HS 11/24/19 [History] Hx Tetanus, Diphtheria Vaccination/Date Given: Yes Hx Influenza Vaccination/Date Given: Yes Hx Pneumococcal Vaccination/Date Given: Yes Immunizations Up to Date: Yes Travel Risk - International Travel Have you traveled outside of the country in past 3 weeks: No - Coronavirus Screening Are you exhibiting any of the following symptoms?: No Close contact with a COVID-19 positive Pt in past 14-21 Days: No - Vaccine Status Have you recieved a Covid-19 vaccination: Yes 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[employer] - Vaccination Dates Date of 2cond Vaccination (if applicable): 12/18/2020 - Review of Systems Constitutional: No Symptoms Ears, Nose, & Throat: No Symptoms Respiratory: No Symptoms Cardiac: No Symptoms Abdominal/Gastrointestinal: No Symptoms Genitourinary Symptoms: No Symptoms Musculoskeletal: Back Pain Skin: No Symptoms Neurological: No Symptoms Psychological: No Symptoms Endocrine: No Symptoms Hematologic/Lymphatic: No Symptoms Immunological/Allergic: No Symptoms - Past Medical History Pertinent Past Medical History: Yes Neurological History: Migraines ENT History: No Pertinent History Cardiac History: Angina, Congestive Heart Failure, Coronary Artery Disease, High Cholesterol, Hypertension, Myocardial Infarction ([place]) Respiratory History: Sleep Apnea Endocrine Medical History: No Pertinent History Musculoskeletal History: Arthritis GI Medical History: GERD, Gallbladder Disease, GI Bleed History: Renal Disease, Other Psycho-Social History: Anxiety, Depression Female Reproductive Disorders: Abnormal Uterine Bleeding, Endometriosis Other Medical History: Renal calculus. GOUT - RLS - Past Surgical History Past Surgical History: Yes Neuro Surgical History: No Pertinent History Cardiac: CABG, Cardiac Catheterization Respiratory: No Pertinent History Gastrointestinal: Cholecystectomy Genitourinary: Kidney Surgery Musculoskeletal: Other Female Surgical History: Hysterectomy Other Surgical History: knee muscle lateral release dwaine , kidney stone removal x 7, hernia repair - Social History Smoking Status: Never smoker Exposure to second hand smoke: No Drug Use: none Patient Lives Alone: No Significant Family History: heart disease, hypertension - Nursing Vital Signs Nursing Vital Signs: Initial Vital Signs Temperature 96.1 F 12/11/21 07:30 Pulse Rate 61 12/11/21 07:30 Respiratory Rate 18 12/11/21 07:30 Blood Pressure 165/91 12/11/21 07:30 O2 Sat by Pulse Oximetry 99 12/11/21 07:30 Pain Scale Pain Intensity 2 - Physical Exam General Appearance: no apparent distress, alert Eye Exam: PERRL/EOMI Ears, Nose, Throat Exam: normal ENT inspection, pharynx normal, moist mucous membranes Neck Exam: normal inspection, supple, full range of motion Respiratory Exam: normal breath sounds, lungs clear Cardiovascular Exam: regular rate/rhythm, normal heart sounds Gastrointestinal Exam: soft, normal bowel sounds, tenderness, No distention, No guarding Back Exam: normal inspection, decreased range of motion, muscle spasm (Across low back, sacroiliac area), other (Pain is reproducible with movements of left lower extremity. Straight leg raising test positive on left), No vertebral tenderness Extremity Exam: normal inspection, normal range of motion, pelvis stable Neurologic Exam: alert, oriented x 3, cooperative, director china II-XII nml as tested, normal mood/affect, nml cerebellar function, sensation nml Skin Exam: normal color SpO2 Interpretation: normal SpO2: 99 O2 Delivery: Room Air Ordered Tests: Medication Summary Discontinued Medications Generic Name Dose Route Start Last Admin Trade Name Freq PRN Reason Stop Dose Admin Ketorolac Tromethamine 30 mg 12/11/21 07:48 12/11/21 07:56 Ketorolac Tromethamine 30 Mg/Ml Inj IM 12/11/21 07:49 30 mg STAT ONE Administration Ketorolac Tromethamine Confirm 12/11/21 07:54 Ketorolac Tromethamine 30 Mg/Ml Inj Administered 12/11/21 07:55 Dose 30 mg .ROUTE .STK-MED ONE Orphenadrine Citrate 60 mg 12/11/21 07:49 12/11/21 07:57 Orphenadrine Citrate 60 Mg/2 Ml Amp IM 12/11/21 07:50 60 mg STAT ONE Administration Orphenadrine Citrate Confirm 12/11/21 07:54 Orphenadrine Citrate 60 Mg/2 Ml Amp Administered 12/11/21 07:55 Dose 60 mg .ROUTE .STK-MED ONE - Progress Progress: improved Progress Note: 12/11/21 she is given Toradol and Norflex, on reevaluation feeling much better. Negative neuro exam in lower extremities. No sign symptoms suggesting cauda equina. Tenderness more on the paraspinal area/sacroiliac area. We will continue with NSAIDs and muscle relaxants to go home and outpatient follow-up. Do not think needs any imaging, discussed signs symptoms of worsening needing return to ER which she seems understanding. Counseled pt/family regarding: diagnosis, need for follow-up - Departure Departure Disposition: Home Clinical Impression: Low back strain Qualifiers: Encounter type: initial encounter Qualified Code(s): S39.012A - Strain of muscle, fascia and tendon of lower back, initial encounter Condition: Stable Critical Care Time: No Referrals: REED CAM MD [Primary Care Provider] - Follow up/PCP as directed (1-2 days for reevaluation) Instructions: Low Back Pain (DC), Sciatica (DC) Additional Instructions: Take Tylenol/diclofenac/muscle relaxants as needed. Follow-up with primary care for reevaluation. Return to ER for intractable low back pain, numbness tingling weakness of lower extremities/loss of bowel or bladder control/perineal numbness. Prescriptions: Cyclobenzaprine HCl 10 mg [Flexeril 10 MG] 10 mg PO TID #20 tablet Diclofenac Sodium 50 mg PO TID PRN 7 Days #20 tab PRN Reason: Pain
[2021-12-11] MEDS: TORAdol 30 mg Injection IM ONE (07:56)
[2021-12-11] MEDS: Norflex 60 MG/2 ML IM ONE (07:57)
[2021-12-11 08:40] VITALS: BP 114/64; PULSE 62
[2021-12-11 21:35] VITALS: O2SAT 99
== END 2021-12-11 08:46 | disposition home or self-care (01) ==
LOC: ED 07:14
DX: S39.012A Strain of muscle, fascia and tendon of lower back, initial encounter (principal); X50.1XXA Overexertion from prolonged static or awkward postures, initial encounter; I25.10 Atherosclerotic heart disease of native coronary artery without angina pectoris; E78.5 Hyperlipidemia, unspecified; I11.0 Hypertensive heart disease with heart failure; I50.9 Heart failure, unspecified; K21.9 Gastro-esophageal reflux disease without esophagitis; Z79.899 Other long term (current) drug therapy
CPT/HCPCS: 96372; 99284; J1885; J2360

== ENCOUNTER 2022-03-30 17:01 | Emergency (ER) | payer OTHER ==
[2022-03-30 17:29] VITALS: O2SAT 98
--- NOTE | 2022-03-30 17:29 | ERPHSYRPT ---
- History of Present Illness Time Seen by Provider: 03/30/22 17:24 Source: patient Exam Limitations: no limitations Physician History: Patient is a 56-year-old white female who at 1 PM precisely this afternoon while walking into a doctor's office across the parking lot she fell most of her weight fell on her right knee but she also hit her left knee she also complains of pain in the right hand and right shoulder. She was not unconscious at any time she did not faint she simply tripped. Occurred: this afternoon Reason for Fall: tripped Injuries/Pain Location: upper extremity (Right hand and shoulder), lower extremity (Both knees right much more than left) Loss of Consciousness: no loss of consciousness Quality: throbbing Severity of Pain-Max: moderate Severity of Pain-Current: moderate Modifying Factors: Improves With: movement Associated Symptoms (Fall): denies symptoms Allergies/Adverse Reactions: hydrocodone bitartrate [From Vicodin] Allergy (Mild, Verified 03/30/22 17:48) Itching oxycodone [Oxycodone] Allergy (Mild, Verified 03/30/22 17:48) Itching Sulfa (Sulfonamide Antibiotics) [Sulfa(Sulfonamide Antibiotics)] Allergy (Mild, Verified 03/30/22 17:48) Hives silk Adverse Reaction (Intermediate, Verified 03/30/22 17:48) Blisters Silk surgical tape codeine Adverse Reaction (Mild, Verified 03/30/22 17:48) Itching meperidine HCl [From Demerol] Adverse Reaction (Mild, Verified 03/30/22 17:48) Vomiting Home Medications: Aspirin 81 mg PO DAILY 02/16/15 [History] Atorvastatin Calcium [Lipitor] 80 mg PO HS 02/16/15 [History] Dextroamphetamine/Amphetamine [Adderall 20 mg Tablet] 30 mg PO DAILY 07/09/17 [History] Trazodone HCl 300 mg PO HS 02/21/19 [History] Omeprazole 40 mg PO HS 11/24/19 [History] Hx Tetanus, Diphtheria Vaccination/Date Given: Yes Hx Influenza Vaccination/Date Given: Yes Hx Pneumococcal Vaccination/Date Given: Yes Travel Risk - Vaccine Status Have you recieved a Covid-19 vaccination: Yes 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[employer] - Vaccination Dates Date of 2cond Vaccination (if applicable): 12/18/2020 - Review of Systems Constitutional: No Fever, No Chills Eyes: No Symptoms Ears, Nose, & Throat: No Symptoms Respiratory: No Cough, No Dyspnea Cardiac: No Chest Pain, No Edema, No Syncope Abdominal/Gastrointestinal: No Abdominal Pain, No Nausea, No Vomiting, No Diarrhea Genitourinary Symptoms: No Dysuria Musculoskeletal: Joint Pain, Joint Swelling, No Back Pain, No Neck Pain Skin: No Rash Neurological: No Dizziness, No Focal Weakness, No Sensory Changes Psychological: No Symptoms Endocrine: No Symptoms All Other Systems: Reviewed and Negative - Past Medical History Pertinent Past Medical History: Yes Neurological History: Migraines ENT History: No Pertinent History Cardiac History: Angina, Congestive Heart Failure, Coronary Artery Disease, High Cholesterol, Hypertension, Myocardial Infarction ([place]) Respiratory History: Sleep Apnea Endocrine Medical History: No Pertinent History Musculoskeletal History: Arthritis GI Medical History: GERD, Gallbladder Disease, GI Bleed History: Renal Disease, Other Psycho-Social History: Anxiety, Depression Female Reproductive Disorders: Abnormal Uterine Bleeding, Endometriosis Other Medical History: Renal calculus. GOUT - RLS - Past Surgical History Past Surgical History: Yes Neuro Surgical History: No Pertinent History Cardiac: CABG, Cardiac Catheterization Respiratory: No Pertinent History Gastrointestinal: Cholecystectomy Genitourinary: Kidney Surgery Musculoskeletal: Other Female Surgical History: Hysterectomy Other Surgical History: knee muscle lateral release dwaine , kidney stone removal x 7, hernia repair - Social History Smoking Status: Never smoker Exposure to second hand smoke: No Drug Use: none Patient Lives Alone: No Significant Family History: heart disease, hypertension - Nursing Vital Signs Nursing Vital Signs: Initial Vital Signs O2 Sat by Pulse Oximetry 98 03/30/22 17:28 Pain Scale Pain Intensity 8 - Beth Coma Score Best Eye Response ([place]): (4) open spontaneously Best Verbal Response ([place]): (5) oriented Best Motor Response ([place]): (6) obeys commands [place] Total: 15 - Physical Exam General Appearance: mild distress Head Injury: no evidence of injury Eye Exam: PERRL/EOMI ENT Exam: airway nml Neck Exam: normal inspection, No tenderness Respiratory/Chest Exam: normal breath sounds, No chest tenderness, No respiratory distress Cardiovascular Exam: normal heart sounds, regular rate/rhythm Gastrointestinal Exam: soft, No tenderness, No distention, No guarding, No ecc hymosis Back Exam: normal inspection, No vertebral tenderness Extremity Exam: other (There was tenderness of the right shoulder but essentially a full range of motion and pain in the right hand the hypothenar eminence no broken skin and no obvious erythema full range of motion. She also had tenderness to both knees especially the right knee were anteriorly over the patella she had ) Neurologic Exam: alert, oriented x 3, cooperative, sensation nml, No motor deficits Skin Exam: abrasion (Right knee) SpO2 Interpretation: normal SpO2: 98 O2 Delivery: Room Air - Course Nursing assessment & vital signs reviewed: Yes - Radiology Exams Right Knee X-ray Interpretation: Interpreted by me, Negative (Except for soft tissue swel ling) Left Knee X-ray Interpretation: Interpreted by me, Negative Ordered Tests: Active Orders 24 hr Category Date Time Status Splint STAT Care 03/30/22 18:11 Ordered KNEE (1 OR 2 VIEW) Stat Exams 03/30/22 17:23 Taken KNEE (3 VIEWS) Stat Exams 03/30/22 17:23 Taken Medication Summary Generic Name Dose Route Start Last Admin Trade Name Freq PRN Reason Stop Dose Admin Ketorolac Tromethamine 60 mg 03/30/22 18:10 Ketorolac Tromethamine 30 Mg/Ml Inj IM 03/30/22 18:11 STAT ONE - Progress Progress: unchanged - Departure Departure Disposition: Home Clinical Impression: Contusion of knee, right, Contusion of knee, left Condition: Stable Critical Care Time: No Referrals: REED CAM MD [Primary Care Provider] - Follow up/PCP as directed Instructions: Knee Pain (DC) Prescriptions: Tramadol HCl 50 mg [Ultram 50 mg] 50 mg PO Q6H 3 Days #12 tablet
[2022-03-30] MEDS ORDERED: TORAdol 30 mg Injection IM ONE (18:10)
[2022-03-30] MEDS ORDERED: TORAdol 30 mg Injection ONE (18:23)
[2022-03-30] MEDS ORDERED: ULTRAM 50 MG ONE (18:57)
[2022-03-30] MEDS ORDERED: ULTRAM 50 MG PO STA (18:58)
[2022-03-30 19:02] VITALS: BP 130/60; PULSE 60
--- NOTE | 2022-03-31 08:53 | XRAY ---
Indication: Pain following fall. Comparison: October 19, 2019. 3 view right knee demonstrates new anterior soft tissue swelling/hematoma. Remaining knee unchanged again demonstrating osteopenia, minimal/mild tricompartmental degenerative changes, scattered vascular calcifications, multiple medial vascular clips, and lower leg soft tissue calcified granulomas.
--- NOTE | 2022-03-31 08:55 | XRAY ---
Indication: Pain following fall. Comparison: October 19, 2019. 2 view left knee unchanged again demonstrating mild osteopenia, mild scattered vascular calcifications, medial vascular clips, and tiny lower leg soft tissue calcified granulomas. No new/acute findings.
== END 2022-03-30 19:03 | disposition home or self-care (01) ==
LOC: ED 17:01
DX: S80.02XA Contusion of left knee, initial encounter (principal); S80.01XA Contusion of right knee, initial encounter; W01.0XXA Fall on same level from slipping, tripping and stumbling without subsequent striking against object, initial encounter; Y93.01 Activity, walking, marching and hiking; Y92.481 Parking lot as the place of occurrence of the external cause; M25.561 Pain in right knee; M25.562 Pain in left knee; M79.641 Pain in right hand; M25.511 Pain in right shoulder; E78.5 Hyperlipidemia, unspecified; Z79.899 Other long term (current) drug therapy; Z79.891 Long term (current) use of opiate analgesic
CPT/HCPCS: 73560; 73562; 96372; 99283; J1885; L1830; A9270-GY

== ENCOUNTER 2022-03-31 10:02 | Emergency (ER) | payer OTHER ==
--- NOTE | 2022-03-31 10:04 | ERPHSYRPT ---
- History of Present Illness Time Seen by Provider: 03/31/22 10:04 Source: patient Exam Limitations: no limitations Physician History: This is a 56-year-old morbidly obese white female patient of Dr. Cam who was brought to the emergency department from orthopedic clinic because the patient had a syncopal episode while at the clinic this morning. She complains of some dizziness. Patient was seen in the emergency department on 03/30/2022 and an x- ray was performed of the right knee because of an injury to the right knee. There was no acute fracture or dislocation. However there was some anterior knee swelling and a hematoma present. Patient denies chest pain. She denies shortness of breath. Patient does have a history of migraine headaches, chronic angina, CHF, coronary artery disease (CABG, cardiac cath), elevated cholesterol, hypertension, gastroesophageal reflux disease, sleep apnea, anxiety and depression. On arrival to the emergency department her symptoms of dizziness have nearly completely resolved. Timing/Duration: today Severity: mild Character of Deficits: none Deficits: no difficulties Baseline/Normal Cognition: alert oriented x 3 Current Cognition: alert oriented x 3 Baseline Gait: walks w/o assistance Associated Symptoms: denies symptoms Allergies/Adverse Reactions: hydrocodone bitartrate [From Vicodin] Allergy (Mild, Verified 03/31/22 10:16) Itching oxycodone [Oxycodone] Allergy (Mild, Verified 03/31/22 10:16) Itching Sulfa (Sulfonamide Antibiotics) [Sulfa(Sulfonamide Antibiotics)] Allergy (Mild, Verified 03/31/22 10:16) Hives silk Adverse Reaction (Intermediate, Verified 03/31/22 10:16) Blisters Silk surgical tape codeine Adverse Reaction (Mild, Verified 03/31/22 10:16) Itching meperidine HCl [From Demerol] Adverse Reaction (Mild, Verified 03/31/22 10:16) Vomiting Home Medications: Aspirin 81 mg PO DAILY 02/16/15 [History] Atorvastatin Calcium [Lipitor] 80 mg PO HS 02/16/15 [History] Dextroamphetamine/Amphetamine [Adderall 20 mg Tablet] 30 mg PO DAILY 07/09/17 [History] Trazodone HCl 300 mg PO HS 02/21/19 [History] Omeprazole 40 mg PO HS 11/24/19 [History] Hx Tetanus, Diphtheria Vaccination/Date Given: Yes Hx Influenza Vaccination/Date Given: Yes Hx Pneumococcal Vaccination/Date Given: Yes Travel Risk - International Travel Have you traveled outside of the country in past 3 weeks: No - Coronavirus Screening Are you exhibiting any of the following symptoms?: No Close contact with a COVID-19 positive Pt in past 14-21 Days: No - Vaccine Status Have you recieved a Covid-19 vaccination: Yes 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 - Vaccination Dates Date of 2cond Vaccination (if applicable): 12/18/2020 - Review of Systems Constitutional: No Symptoms Eyes: No Symptoms Ears, Nose, & Throat: No Symptoms Respiratory: No Symptoms Cardiac: No Symptoms Abdominal/Gastrointestinal: No Symptoms Genitourinary Symptoms: No Symptoms Musculoskeletal: Injury (Right knee) Neurological: Dizziness Psychological: No Symptoms Endocrine: No Symptoms Hematologic/Lymphatic: No Symptoms Immunological/Allergic: No Symptoms All Other Systems: Reviewed and Negative - Past Medical History Pertinent Past Medical History: Yes Neurological History: Migraines ENT History: No Pertinent History Cardiac History: Angina, Congestive Heart Failure, Coronary Artery Disease, High Cholesterol, Hypertension, Myocardial Infarction ([place]) Respiratory History: Sleep Apnea Endocrine Medical History: No Pertinent History Musculoskeletal History: Arthritis GI Medical History: GERD, Gallbladder Disease, GI Bleed History: Renal Disease, Other Psycho-Social History: Anxiety, Depression Female Reproductive Disorders: Abnormal Uterine Bleeding, Endometriosis Other Medical History: Renal calculus. GOUT - RLS - Past Surgical History Past Surgical History: Yes Neuro Surgical History: No Pertinent History Cardiac: CABG, Cardiac Catheterization Respiratory: No Pertinent History Gastrointestinal: Cholecystectomy Genitourinary: Kidney Surgery Musculoskeletal: Other Female Surgical History: Hysterectomy Other Surgical History: knee muscle lateral release dwaine , kidney stone removal x 7, hernia repair - Social History Smoking Status: Never smoker Exposure to second hand smoke: No Drug Use: none Patient Lives Alone: No Significant Family History: heart disease, hypertension - Nursing Vital Signs Nursing Vital Signs: Initial Vital Signs Temperature 97.6 F 03/31/22 10:17 Pulse Rate 48 L 03/31/22 10:17 Respiratory Rate 18 03/31/22 10:17 Blood Pressure 105/56 03/31/22 10:17 O2 Sat by Pulse Oximetry 97 03/31/22 10:17 Pain Scale Pain Intensity 5 - Beth Coma Scale Best Eye Response (Beth): (4) open spontaneously Best Verbal Response (Beth): (5) oriented Best Motor Response ([place]): (6) obeys commands Beth Total: 15 - Physical Exam General Appearance: no apparent distress, alert, anxiety, obese Eye Exam: bilateral eye: normal inspection, PERRL, EOMI Ears, Nose, Throat Exam: normal ENT inspection, moist mucous membranes Neck Exam: normal inspection, non-tender, supple, full range of motion Respiratory: normal breath sounds, lungs clear, airway intact, No chest tenderness, No respiratory distress Cardiovascular: normal peripheral pulses, bradycardia Gastrointestinal: No tenderness Pelvic Exam: not done Rectal Exam: not done Back Exam: normal inspection, normal range of motion, No CVA tenderness, No vertebral tenderness Extremity Exam: swelling (Right anterior knee), tenderness (Right anterior knee) Mental Status: alert, oriented x 3, 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 New sinus bradycardia and right bundle branch block when compared to EKG dated 02/21/2019.) Ordered Tests: Active Orders 24 hr Category Date Time Status EKG-ER Only STAT Care 03/31/22 10:54 Active IV Insertion STAT Care 03/31/22 10:54 Active HEAD WITHOUT CONTRAST [CT] Stat Exams 03/31/22 10:54 Completed CBC W DIFF Stat Lab 03/31/22 11:15 Completed CMP Stat Lab 03/31/22 11:15 Completed MAGNESIUM Stat Lab 03/31/22 11:15 Completed TROPONIN Q3H Lab 03/31/22 11:15 Completed TROPONIN Q3H Lab 03/31/22 13:24 Completed TROPONIN Q3H Lab 03/31/22 17:00 Ordered TROPONIN Q3H Lab 03/31/22 20:00 Ordered TROPONIN Q3H Lab 03/31/22 23:00 Ordered UA W/RFX CULTURE Stat Lab 03/31/22 Completed Medication Summary Generic Name Dose Route Start Last Admin Trade Name Freq PRN Reason Stop Dose Admin Sodium Chloride 500 mls @ 500 mls/hr 03/31/22 14:59 03/31/22 15:23 Sodium Chloride 0.9% 500 Ml IV 03/31/22 15:58 500 mls/hr .Q1H ONE Administration Discontinued Medications Generic Name Dose Route Start Last Admin Trade Name Nita PRN Reason Stop Dose Admin Sodium Chloride Confirm 03/31/22 15:22 Sodium Chloride 0.9% 500 Ml Administered 03/31/22 15:23 Dose 500 mls @ ud IV .STK-MED ONE Ketorolac Tromethamine 30 mg 03/31/22 14:42 03/31/22 14:51 Ketorolac Tromethamine 30 Mg/Ml Inj IV 03/31/22 14:43 30 mg STAT ONE Administration Ketorolac Tromethamine Confirm 03/31/22 14:50 Ketorolac Tromethamine 30 Mg/Ml Inj Administered 03/31/22 14:51 Dose 30 mg .ROUTE .STK-MED ONE Lab/Rad Data: Laboratory Result Diagrams 03/31/22 11:15 03/31/22 11:15 Laboratory Results 03/31/22 03/31/22 03/31/22 Range/Units Unknown 13:24 11:15 WBC (4.0-10.5) x10^3/uL RBC (4.1-5.4) x10^6/uL Hgb (12.0-16.0) g/dL Hct (35-47) % MCV (78-100) fL MCH (26-32) pg MCHC (32-36) g/dL RDW (11.5-14.0) % Plt Count (150-450) x10^3/uL MPV (7.5-11.0) fL Gran % (36.0-66.0) % Immature Gran % (Auto) (0.00-0.4) % Nucleat RBC Rel Count (0.00-0.1) % Eos # (Auto) (0-0.5) x10^3/uL Immature Gran # (Auto) (0.00-0.03) x10^3u/L Absolute Lymphs (auto) (1.0-4.6) x10^3/uL Absolute Monos (auto) (0.0-1.3) x10^3/uL Absolute Nucleated RBC (0.00-0.01) x10^3u/L Lymphocytes % (24.0-44.0) % Monocytes % (0.0-12.0) % Eosinophils % (0.00-5.0) % Basophils % (0.0-0.4) % Absolute Granulocytes (1.4-6.9) x10^3/uL Basophils # (0-0.4) x10^3/uL Sodium (137-145) mmol/L Potassium (3.5-5.1) mmol/L Chloride (98-107) mmol/L Carbon Dioxide (22-30) mmol/L Anion Gap (5-15) MEQ/L BUN (7-17) mg/dL Creatinine (0.52-1.04) mg/dL Estimated GFR ML/MIN Glucose (74-106) mg/dL Calcium (8.4-10.2) mg/dL Magnesium (1.6-2.3) mg/dL Total Bilirubin (0.2-1.3) mg/dL AST (14-36) U/L ALT (0-35) U/L Alkaline Phosphatase (38-126) U/L Troponin I < 0.012 < 0.012 (0.000-0.034) ng/mL Serum Total Protein (6.3-8.2) g/dL Albumin (3.5-5.0) g/dL Urinalys Dipstick Clnc MAIN LAB Urine Color YELLOW (YELLOW) Urine Appearance CLEAR (CLEAR) Urine pH 6.0 (5-6) Ur Specific [place] >=1.030 (1.005-1.025) POC Urine Protein Conf 30 (Negative) Urine Ketones NEGATIVE (NEGATIVE) Urine Nitrite NEGATIVE (NEGATIVE) Urine Bilirubin NEGATIVE (NEGATIVE) Urine Urobilinogen 1 (0-1) mg/dL Urine Leukocytes NEGATIVE (NEGATIVE) Urine WBC (Auto) 0-2 (0-5) /HPF Urine RBC (Auto) 0-2 (0-2) /HPF U Hyaline Cast (Auto) 0-2 (0-2) /LPF U Epithel Cells (Auto) RARE (FEW) /HPF Urine Bacteria (Auto) NONE (NEGATIVE) /HPF Urine RBC NEGATIVE (0-5) Zain/ul Urine Mucus (Auto) SLIGHT (NEGATIVE) /HPF Ur Culture Indicated? NO Urine Glucose NEGATIVE (NEGATIVE) mg/dL Slides for Path Review 03/31/22 03/31/22 Range/Units 11:15 11:15 WBC 7.8 (4.0-10.5) x10^3/uL RBC 4.30 (4.1-5.4) x10^6/uL Hgb 10.3 L (12.0-16.0) g/dL Hct 35.9 (35-47) % MCV 83.5 (78-100) fL MCH 24.0 L (26-32) pg MCHC 28.7 L (32-36) g/dL RDW 17.1 H (11.5-14.0) % Plt Count 318 (150-450) x10^3/uL MPV 10.4 (7.5-11.0) fL Gran % 75.0 H (36.0-66.0) % Immature Gran % (Auto) 0.4 (0.00-0.4) % Nucleat RBC Rel Count 0.0 (0.00-0.1) % Eos # (Auto) 0.09 (0-0.5) x10^3/uL Immature Gran # (Auto) 0.03 (0.00-0.03) x10^3u/L Absolute Lymphs (auto) 1.23 (1.0-4.6) x10^3/uL Absolute Monos (auto) 0.57 (0.0-1.3) x10^3/uL Absolute Nucleated RBC 0.00 (0.00-0.01) x10^3u/L Lymphocytes % 15.7 L (24.0-44.0) % Monocytes % 7.3 (0.0-12.0) % Eosinophils % 1.1 (0.00-5.0) % Basophils % 0.5 (0.0-0.4) % Absolute Granulocytes 5.87 (1.4-6.9) x10^3/uL Basophils # 0.04 (0-0.4) x10^3/uL Sodium 137 (137-145) mmol/L Potassium 3.6 (3.5-5.1) mmol/L Chloride 105 (98-107) mmol/L Carbon Dioxide 22 (22-30) mmol/L Anion Gap 13.6 (5-15) MEQ/L BUN 26 H (7-17) mg/dL Creatinine 1.11 H (0.52-1.04) mg/dL Estimated GFR 53.8 ML/MIN Glucose 120 H (74-106) mg/dL Calcium 9.3 (8.4-10.2) mg/dL Magnesium 2.1 (1.6-2.3) mg/dL Total Bilirubin 0.60 (0.2-1.3) mg/dL AST 30 (14-36) U/L ALT 18 (0-35) U/L Alkaline Phosphatase 109 (38-126) U/L Troponin I (0.000-0.034) ng/mL Serum Total Protein 6.5 (6.3-8.2) g/dL Albumin 3.7 (3.5-5.0) g/dL Urinalys Dipstick Clnc Urine Color (YELLOW) Urine Appearance (CLEAR) Urine pH (5-6) Ur Specific [place] (1.005-1.025) POC Urine Protein Conf (Negative) Urine Ketones (NEGATIVE) Urine Nitrite (NEGATIVE) Urine Bilirubin (NEGATIVE) Urine Urobilinogen (0-1) mg/dL Urine Leukocytes (NEGATIVE) Urine WBC (Auto) (0-5) /HPF Urine RBC (Auto) (0-2) /HPF U Hyaline Cast (Auto) (0-2) /LPF U Epithel Cells (Auto) (FEW) /HPF Urine Bacteria (Auto) (NEGATIVE) /HPF Urine RBC (0-5) Zain/ul Urine Mucus (Auto) (NEGATIVE) /HPF Ur Culture Indicated? Urine Glucose (NEGATIVE) mg/dL Slides for Path Review YES - Progress Progress: improved, re-examined Progress Note: 03/31/22 11:54 CAT scan of the head without contrast is a normal study. There are no acute intracranial abnormalities. 03/31/22 15:38 Clinically, the patient states that her dizziness has improved. She does states she is mildly off but better than when she arrived to the emergency department. Her vital signs are better in terms of her heart rate is now in the 60s and her blood pressure is in an appropriate range. Patient denies shortness of breath and she denies chest pain. Patient is hungry. She is actually walked to the bathroom and back without dizziness. Counseled pt/family regarding: lab results, diagnosis, need for follow-up, rad results - Departure Departure Disposition: Home Clinical Impression: Dizziness Condition: Stable Critical Care Time: No Referrals: REED CAM MD [Primary Care Provider] - Follow up/PCP as directed Additional Instructions: Drink plenty fluids. Take your medication as prescribed. Follow-up with your primary care provider tomorrow for further evaluation and management.
[2022-03-31 11:19] LABS: Absolute Neutrophil Ct (ANC) 5.87 x10^3/uL (1.4-6.9); Basophil (Absolute #) 0.04 x10^3/uL (0-0.4); Eosinophil % 1.1 % (0.00-5.0); Eosinophil (Absolute #) 0.09 x10^3/uL (0-0.5); Hematocrit 35.9 % (35-47); Hemoglobin 10.3 g/dL (12.0-16.0); Lymphocyte (Absolute #) 1.23 x10^3/uL (1.0-4.6); Lymphocytes % 15.7 % (24.0-44.0); Mean Cell Volume 83.5 fL (78-100); Mean Corpuscular Hgb Concent. 28.7 g/dL (32-36); Mean Platelet Volume 10.4 fL (7.5-11.0); Monocyte (Absolute #) 0.57 x10^3/uL (0.0-1.3); Monocytes % 7.3 % (0.0-12.0); Platelet Count 318 x10^3/uL (150-450); Red Cell Distribution Width 17.1 % (11.5-14.0); White Blood Count 7.8 x10^3/uL (4.0-10.5)
--- NOTE | 2022-03-31 11:42 | XRAY ---
Indication: Dizziness. Multiple contiguous axial images obtained through the head without contrast. Comparison: September 28, 2013 Normal appearing brain parenchyma, ventricles, and bony calvarium for patient's age. Visualized paranasal sinuses and mastoid air cells are clear. Impression: Continued normal CT head without contrast exam.
[2022-03-31 11:47] LABS: ALBUMIN 3.7 g/dL (3.5-5.0); ANION GAP 13.6 MEQ/L (5-15); BILIRUBIN,TOTAL 0.6 mg/dL (0.2-1.3); Calcium 9.3 mg/dL (8.4-10.2); Creatinine 1 1.11 mg/dL (0.52-1.04); EST GLOMERULAR FILTRATION RATE 53.8 ML/MIN; MAGNESIUM 2.1 mg/dL (1.6-2.3); Potassium 3.6 mmol/L (3.5-5.1); Total Protein 6.5 g/dL (6.3-8.2)
[2022-03-31 12:28] LABS: Slide Review 1 YES
[2022-03-31 13:51] LABS: Epithelial Cells RARE /HPF (FEW); Hyaline Casts 0-2 /LPF (0-2); Mucus SLIGHT /HPF (NEGATIVE); RBC 0-2 /HPF (0-2); WBC 0-2 /HPF (0-5)
[2022-03-31 13:54] LABS: Appearance CLEAR (CLEAR); Bilirubin NEGATIVE (NEGATIVE); Glucose NEGATIVE (NEGATIVE); Ketones NEGATIVE (NEGATIVE); Nitrite NEGATIVE (NEGATIVE); Protein,Urine Dip 30 (Negative); RBC NEGATIVE Ery/ul (0-5); Specific Gravity >=1.030 (1.005-1.025); Urine Cultured Indicated? NO; Urobilinogen 1 mg/dL (0-1)
[2022-03-31 13:55] LABS: Dipstick done @ ? MAIN LAB
[2022-03-31] MEDS ORDERED: TORAdol 30 mg Injection IV ONE (14:42)
[2022-03-31] MEDS ORDERED: TORAdol 30 mg Injection ONE (14:50)
[2022-03-31] MEDS ORDERED: Sodium Chloride 0.9% 500 ML 500 ML IV ONE ×2 (14:59→15:22)
[2022-03-31 16:13] VITALS: BP 120/70; PULSE 60; O2SAT 97
== END 2022-03-31 16:24 | disposition home or self-care (01) ==
LOC: ED 10:02
DX: R42 Dizziness and giddiness (principal); R55 Syncope and collapse; E78.5 Hyperlipidemia, unspecified; I11.0 Hypertensive heart disease with heart failure; I50.9 Heart failure, unspecified; Z79.899 Other long term (current) drug therapy
CPT/HCPCS: 36000; 36415; 70450; 80053; 81015; 83735; 84484; 85025; 93005; 96374; 99284; J1885

== ENCOUNTER 2022-04-05 21:50 | Emergency (ER) | payer OTHER ==
[2022-04-05] MEDS ORDERED: TORAdol 30 mg Injection IM ONE (22:12)
--- NOTE | 2022-04-05 22:13 | ERPHSYRPT ---
- History of Present Illness Source: patient Exam Limitations: no limitations Patient Subjective Stated Complaint: pt states "I fell last week and had a MRI . I have to meet with the surgeon tomorrow. My knee is hot and tingling." Triage Nursing Assessment: pt ambulated into the er; pt is axo x4; c/o rt knee pain; pt states 4/10 to rt knee; bruising, swelling present to rt knee; strong rt pedal pulse; good cap refill to RLE; limited ROM to RLE; hypertensive Physician History: 56 yo wf s/p fall 1wk ago presents w increasing R knee pain. Pt was seen in ER for the knee and has followed up with Ortho who ordered a MRI of the knee which demonstrated a medial meniscal tear/hematoma wo ligamentous injury. Pt has ortho follow up tomorrow. She complains of increasing knee pain, along w R calf pain. Chest pain and dyspnea are denied. Method of Injury: fell Occurred: other (1WK ago) Quality: constant, aching, throbbing Severity of Pain-Max: severe Severity of Pain-Current: severe Lower Extremities Pain: knee: right Modifying Factors: Improves With: movement Associated Symptoms: unable to bear weight Allergies/Adverse Reactions: hydrocodone bitartrate [From Vicodin] Allergy (Mild, Verified 04/05/22 21:56) Itching oxycodone [Oxycodone] Allergy (Mild, Verified 04/05/22 21:56) Itching Sulfa (Sulfonamide Antibiotics) [Sulfa(Sulfonamide Antibiotics)] Allergy (Mild, Verified 04/05/22 21:56) Hives silk Adverse Reaction (Intermediate, Verified 04/05/22 21:56) Blisters Silk surgical tape codeine Adverse Reaction (Mild, Verified 04/05/22 21:56) Itching meperidine HCl [From Demerol] Adverse Reaction (Mild, Verified 04/05/22 21:56) Vomiting Home Medications: Aspirin 81 mg PO DAILY 02/16/15 [History] Atorvastatin Calcium [Lipitor] 80 mg PO HS 02/16/15 [History] Dextroamphetamine/Amphetamine [Adderall 20 mg Tablet] 30 mg PO DAILY 07/09/17 [History] Trazodone HCl 300 mg PO HS 02/21/19 [History] Omeprazole 40 mg PO HS 11/24/19 [History] Hx Tetanus, Diphtheria Vaccination/Date Given: Yes Hx Influenza Vaccination/Date Given: Yes Hx Pneumococcal Vaccination/Date Given: Yes Travel Risk - International Travel Have you traveled outside of the country in past 3 weeks: No - Coronavirus Screening Are you exhibiting any of the following symptoms?: No Close contact with a COVID-19 positive Pt in past 14-21 Days: No - Vaccine Status Have you recieved a Covid-19 vaccination: Yes 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: [place] - Vaccination Dates Date of 2cond Vaccination (if applicable): 12/18/2020 - Review of Systems Constitutional: No Symptoms Eyes: No Symptoms Ears, Nose, & Throat: No Symptoms Respiratory: No Symptoms Cardiac: Orthopnea Abdominal/Gastrointestinal: No Symptoms Genitourinary Symptoms: No Symptoms Musculoskeletal: Arthralgias Skin: No Symptoms Neurological: No Symptoms Psychological: No Symptoms Endocrine: No Symptoms Hematologic/Lymphatic: No Symptoms Immunological/Allergic: No Symptoms - Past Medical History Pertinent Past Medical History: Yes Neurological History: Migraines ENT History: No Pertinent History Cardiac History: Angina, Congestive Heart Failure, Coronary Artery Disease, High Cholesterol, Hypertension, Myocardial Infarction ([place]) Respiratory History: Sleep Apnea Endocrine Medical History: No Pertinent History Musculoskeletal History: Arthritis GI Medical History: GERD, Gallbladder Disease, GI Bleed History: Renal Disease, Other Psycho-Social History: Anxiety, Depression Female Reproductive Disorders: Abnormal Uterine Bleeding, Endometriosis Other Medical History: Renal calculus. GOUT - RLS - Past Surgical History Past Surgical History: Yes Neuro Surgical History: No Pertinent History Cardiac: CABG, Cardiac Catheterization Respiratory: No Pertinent History Gastrointestinal: Cholecystectomy Genitourinary: Kidney Surgery Musculoskeletal: Other Female Surgical History: Hysterectomy Other Surgical History: knee muscle lateral release dwaine , kidney stone removal x 7, hernia repair - Social History Smoking Status: Never smoker Exposure to second hand smoke: No Drug Use: none Patient Lives Alone: No Significant Family History: heart disease, hypertension - Nursing Vital Signs Nursing Vital Signs: Initial Vital Signs Temperature 99.3 F 04/05/22 21:56 Pulse Rate 75 04/05/22 21:56 Respiratory Rate 16 04/05/22 21:56 Blood Pressure 195/112 04/05/22 21:56 O2 Sat by Pulse Oximetry 97 04/05/22 21:56 Pain Scale Pain Intensity 6 Hypertensive - Physical Exam General Appearance: no apparent distress Eyes, Ears, Nose, Throat Exam: normal ENT inspection, TMs normal, pharynx normal, moist mucous membranes Neck Exam: normal inspection, non-tender, supple, full range of motion, No Brudzinski, No Kernig's, No meningismus Cardiovascular/Respiratory Exam: normal breath sounds, regular rate/rhythm, heart sounds normal Gastrointestinal/Abdominal Exam: non-tender, soft Back Exam: normal inspection, normal range of motion, No CVA tenderness Hips Exam: bilateral: non-tender, normal inspection Legs Exam: bilateral leg: pain (TTP R posterior calf/Mild edema) Knees Exam: right knee: bone tenderness (Large amount of edema/Large ecchymotic area/Diffuse, marked TTP) Ankle Exam: bilateral ankle: non-tender, normal inspection, normal range of motion, no evidence of injury Foot Exam: bilateral foot: non-tender, normal inspection, normal range of motion, no evidence of injury Neuro/Tendon Exam: normal sensation, normal motor functions, normal tendon functions, responds to pain, no evidence tendon injury, No motor deficit, No sensory deficit Mental Status Exam: alert, oriented x 3, cooperative Skin Exam: normal color, warm, dry SpO2 Interpretation: normal SpO2: 97 O2 Delivery: Room Air - Course Nursing assessment & vital signs reviewed: Yes - Radiology Ultrasound Exam Venous Lower Extremity Ultrasound: Other (RLE venous doppler neg per Tech) Ordered Tests: Active Orders 24 hr Category Date Time Status Saran Bandage Application -[facility] STAT Care 04/05/22 23:38 Completed VENOUS UNILAT/LIMITED EXTREMIT [US] Stat Exams 04/05/22 23:04 Taken D-DIMER QUANTITATIVE Stat Lab 04/05/22 22:20 Completed Medication Summary Discontinued Medications Generic Name Dose Route Start Last Admin Trade Name Nita PRN Reason Stop Dose Admin Ketorolac Tromethamine 30 mg 04/05/22 22:12 04/05/22 22:17 Ketorolac Tromethamine 30 Mg/Ml Inj IM 04/05/22 22:13 30 mg STAT ONE Administration Ketorolac Tromethamine Confirm 04/05/22 22:16 Ketorolac Tromethamine 30 Mg/Ml Inj Administered 04/05/22 22:17 Dose 30 mg .ROUTE .STK-MED ONE Lab/Rad Data: Laboratory Results 04/05/22 Range/Units 22:20 D-Dimer 0.90 H* (0.0-0.50) mg/L - Progress Progress: improved Progress Note: 04/05/22 23:38 30mg IM Toradol w improvement in pain Saran wrap R knee per nursing/NVI 04/06/22 00:00 BP decreasing upon discharge Counseled pt/family regarding: diagnosis, need for follow-up, rad results - Departure Departure Disposition: Home Clinical Impression: Acute meniscal injury of right knee Condition: Stable Critical Care Time: No Referrals: REED CAM MD [Primary Care Provider] - Follow up/PCP as directed Instructions: Knee Sprain (DC), Knee Pain (DC) Additional Instructions: Keep your appointment with your orthopedic surgeon in the morning Use your walker Continue with Tramadol for pain Return to ER as needed
[2022-04-05] MEDS ORDERED: TORAdol 30 mg Injection ONE (22:16)
[2022-04-05 23:52] VITALS: BP 158/93; PULSE 67
[2022-04-06 00:01] VITALS: O2SAT 97
--- NOTE | 2022-04-06 08:40 | XRAY ---
Indication: Right lower extremity pain. Two-dimensional sonogram and color Doppler imaging of the major venous vessels of the right leg performed. Comparison: None No thrombus seen in the examined deep venous vessels of the right leg including greater saphenous vein. Veins demonstrate normal compressibility. Venous waveforms are normal with and without augmentation. Impression: Right leg negative for DVT. Comment: Preliminary report was given.
== END 2022-04-05 23:52 | disposition home or self-care (01) ==
LOC: ED 21:50
DX: S83.241A Other tear of medial meniscus, current injury, right knee, initial encounter (principal); M25.561 Pain in right knee; M79.661 Pain in right lower leg; E78.5 Hyperlipidemia, unspecified; I11.0 Hypertensive heart disease with heart failure; I50.9 Heart failure, unspecified; Z79.899 Other long term (current) drug therapy
CPT/HCPCS: 36415; 85379; 93971; 96372; 99283; J1885

== ENCOUNTER 2022-05-16 15:33 | Emergency (ER) | payer OTHER ==
[2022-05-16] MEDS ORDERED: Sodium Chloride 0.9% 1000 ML 1,000 ML IV STA (15:50)
[2022-05-16] MEDS ORDERED: Sodium Chloride 0.9% 1000 ML 1,000 ML ONE (16:08)
[2022-05-16 16:25] LABS: Absolute Neutrophil Ct (ANC) 4.53 x10^3/uL (1.4-6.9); Basophil (Absolute #) 0.03 x10^3/uL (0-0.4); Eosinophil % 2.5 % (0.00-5.0); Eosinophil (Absolute #) 0.17 x10^3/uL (0-0.5); Hematocrit 33.3 % (35-47); Hemoglobin 10.2 g/dL (12.0-16.0); Lymphocyte (Absolute #) 1.41 x10^3/uL (1.0-4.6); Lymphocytes % 20.8 % (24.0-44.0); Mean Cell Volume 76.9 fL (78-100); Mean Corpuscular Hemoglobin 23.6 pg (26-32); Mean Corpuscular Hgb Concent. 30.6 g/dL (32-36); Monocytes % 8.9 % (0.0-12.0); Platelet Count 372 x10^3/uL (150-450); Red Blood Count 4.33 x10^6/uL (4.1-5.4); Red Cell Distribution Width 16.5 % (11.5-14.0); White Blood Count 6.8 x10^3/uL (4.0-10.5)
--- NOTE | 2022-05-16 16:43 | ERPHSYRPT ---
- History of Present Illness Historian: patient Exam Limitations: no limitations Patient Subjective Stated Complaint: I have been having diarrhea since the Tuesday before. (05/08/22) Triage Nursing Assessment: Pt ambulated into ER to room 8. Pt informed that she started to have diarrhea since 05/08/22. Pt was seen at [facility] on Tuesday05/12/22 and was prescribed zofran but pt refused a covid test stating "my daughter lives with me and hasn't had it so it can't be covid." Pt states she was okay till. Pt denies any pain, she states her belly just feels "squishy/slus hy." Physician History: 57 yo wf w diarrhea x 9days. Pt has nausea wo vomiting. She states that abdominal pain is minimum at best. Pt denies melena/hematochezia/dysuria/niki turia/chest pain/cough/fever. Timing/Duration: other (9 days) Activities at Onset: rest Quality: other (Minimum pain at best) Abdominal Pain Onset Location: generalized abdomen Pain Radiation: no radiation Severity of Pain-Max: mild Severity of Pain-Current: mild Modifying Factors: Improves With: nothing Associated Symptoms: diarrhea, loss of appetite, nausea, No back, No chest pain, No diaphoresis, No fever/chills, No fatigue, No headache, No heartburn, No neck pain, No rash, No shortness of breath, No syncope, No vomiting, No weakness Previous symptoms: no prior history Allergies/Adverse Reactions: hydrocodone bitartrate [From Vicodin] Allergy (Mild, Verified 04/05/22 21:56) Itching oxycodone [Oxycodone] Allergy (Mild, Verified 04/05/22 21:56) Itching Sulfa (Sulfonamide Antibiotics) [Sulfa(Sulfonamide Antibiotics)] Allergy (Mild, Verified 04/05/22 21:56) Hives silk Adverse Reaction (Intermediate, Verified 04/05/22 21:56) Blisters Silk surgical tape codeine Adverse Reaction (Mild, Verified 04/05/22 21:56) Itching meperidine HCl [From Demerol] Adverse Reaction (Mild, Verified 04/05/22 21:56) Vomiting Home Medications: Aspirin 81 mg PO DAILY 02/16/15 [History] Atorvastatin Calcium [Lipitor] 80 mg PO HS 02/16/15 [History] Dextroamphetamine/Amphetamine [Adderall 20 mg Tablet] 30 mg PO DAILY 07/09/17 [History] Trazodone HCl 300 mg PO HS 02/21/19 [History] Omeprazole 40 mg PO HS 11/24/19 [History] Hx Tetanus, Diphtheria Vaccination/Date Given: No Hx Influenza Vaccination/Date Given: Yes Hx Pneumococcal Vaccination/Date Given: No Immunizations Up to Date: Yes Travel Risk - International Travel Have you traveled outside of the country in past 3 weeks: No - Coronavirus Screening Are you exhibiting any of the following symptoms?: Yes Symptoms: Vomiting/Diarrhea - Vaccine Status Have you recieved a Covid-19 vaccination: Yes 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 - Vaccination Dates Date of 2cond Vaccination (if applicable): 12/18/2020 - Review of Systems Constitutional: No Symptoms, Malaise Eyes: No Symptoms Ears, Nose, & Throat: No Symptoms Respiratory: No Symptoms Cardiac: No Symptoms Abdominal/Gastrointestinal: No Symptoms, Nausea, Diarrhea, No Vomiting Genitourinary Symptoms: No Symptoms Musculoskeletal: No Symptoms Skin: No Symptoms Neurological: No Symptoms Psychological: No Symptoms Endocrine: No Symptoms Hematologic/Lymphatic: No Symptoms Immunological/Allergic: No Symptoms - Past Medical History Pertinent Past Medical History: Yes Neurological History: No Pertinent History ENT History: No Pertinent History Cardiac History: Coronary Artery Disease, High Cholesterol, Hypertension Respiratory History: No Pertinent History Endocrine Medical History: No Pertinent History Musculoskeletal History: Osteoarthritis, Other GI Medical History: GERD, Gallbladder Disease, GI Bleed History: Renal Disease, Other Psycho-Social History: Anxiety, Depression Female Reproductive Disorders: Abnormal Uterine Bleeding, Endometriosis Other Medical History: 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 BILATERAL KNEE LATERAL RELEASES 15 YEARS AGO. HYSTERECTOMY. GALL BLADDER. GOUT - Past Surgical History Past Surgical History: Yes Neuro Surgical History: No Pertinent History Cardiac: CABG, Cardiac Catheterization Respiratory: No Pertinent History Gastrointestinal: Cholecystectomy Genitourinary: Kidney Surgery Musculoskeletal: Other Female Surgical History: Hysterectomy Other Surgical History: knee muscle lateral release dwaine , kidney stone removal x 7, hernia repair - Social History Smoking Status: Never smoker Exposure to second hand smoke: No Drug Use: none Patient Lives Alone: No Significant Family History: heart disease, hypertension - Nursing Vital Signs Nursing Vital Signs: Initial Vital Signs Pulse Rate 62 05/16/22 15:40 Respiratory Rate 18 05/16/22 15:40 Blood Pressure 155/81 05/16/22 15:40 O2 Sat by Pulse Oximetry 95 05/16/22 15:40 Pain Scale Pain Intensity 0 Hypertensive - Physical Exam General Appearance: no apparent distress Eye Exam: PERRL/EOMI, eyes nml inspection Ears, Nose, Throat Exam: normal ENT inspection, TMs normal, pharynx normal, moist mucous membranes Neck Exam: normal inspection, non-tender, supple, full range of motion, No meningismus, No mass, No Brudzinski, No Kernig's Respiratory Exam: normal breath sounds, lungs clear, airway intact Cardiovascular Exam: regular rate/rhythm, normal heart sounds, normal peripheral pulses, No murmur Gastrointestinal/Abdomen Exam: soft, normal bowel sounds, No tenderness Back Exam: normal inspection, normal range of motion Extremity Exam: normal inspection, normal range of motion Neurologic Exam: alert, oriented x 3, cooperative, hull inspector II-XII nml as tested, normal mood/affect, nml cerebellar function, nml station & gait, sensation nml Skin Exam: normal color, warm, dry, No rash Lymphatic Exam: No adenopathy SpO2 Interpretation: normal SpO2: 95 O2 Delivery: Room Air - Course Nursing assessment & vital signs reviewed: Yes - CT Exams Abdomen/Pelvis CT Interpretation: Tele-radiologist Report (Nothing acute) Ordered Tests: Active Orders 24 hr Category Date Time Status IV Insertion STAT Care 05/16/22 15:50 Completed ABDOMEN AND PELVIS W/0 CONTRAS [CT] Stat Exams 05/16/22 17:41 Taken AMYLASE Stat Lab 05/16/22 16:10 Completed CBC W DIFF Stat Lab 05/16/22 16:10 Completed CMP Stat Lab 05/16/22 16:10 Completed LIPASE Stat Lab 05/16/22 16:10 Completed Medication Summary Discontinued Medications Generic Name Dose Route Start Last Admin Trade Name Freq PRN Reason Stop Dose Admin Sodium Chloride 1,000 mls @ 999 mls/hr 05/16/22 15:50 05/16/22 17:12 Sodium Chloride 0.9% 1000 Ml IV 05/16/22 16:50 Infused .Q1H1M STA Infusion Sodium Chloride Confirm 05/16/22 16:08 Sodium Chloride 0.9% 1000 Ml Administered 05/16/22 16:09 Dose 1,000 mls @ ud .ROUTE .STK-MED ONE Metronidazole 500 mg 05/16/22 19:14 05/16/22 19:20 Metronidazole 500 Mg Tablet PO 05/16/22 19:15 500 mg STAT ONE Administration Metronidazole Confirm 05/16/22 19:15 Metronidazole 500 Mg Tablet Administered 05/16/22 19:16 Dose 500 mg .ROUTE .[facility] Lab/Rad Data: Laboratory Result Diagrams 05/16/22 16:10 05/16/22 16:10 Laboratory Results 05/16/22 05/16/22 05/16/22 Range/Units 16:20 16:10 16:10 WBC 6.8 (4.0-10.5) x10^3/uL RBC 4.33 (4.1-5.4) x10^6/uL Hgb 10.2 L (12.0-16.0) g/dL Hct 33.3 L (35-47) % MCV 76.9 L (78-100) fL MCH 23.6 L (26-32) pg MCHC 30.6 L (32-36) g/dL RDW 16.5 H (11.5-14.0) % Plt Count 372 (150-450) x10^3/uL MPV 10.0 (7.5-11.0) fL Gran % 67.0 H (36.0-66.0) % Immature Gran % (Auto) 0.4 (0.00-0.4) % Nucleat RBC Rel Count 0.0 (0.00-0.1) % Eos # (Auto) 0.17 (0-0.5) x10^3/uL Immature Gran # (Auto) 0.03 (0.00-0.03) x10^3u/L Absolute Lymphs (auto) 1.41 (1.0-4.6) x10^3/uL Absolute Monos (auto) 0.60 (0.0-1.3) x10^3/uL Absolute Nucleated RBC 0.00 (0.00-0.01) x10^3u/L Lymphocytes % 20.8 L (24.0-44.0) % Monocytes % 8.9 (0.0-12.0) % Eosinophils % 2.5 (0.00-5.0) % Basophils % 0.4 (0.0-0.4) % Absolute Granulocytes 4.53 (1.4-6.9) x10^3/uL Basophils # 0.03 (0-0.4) x10^3/uL Sodium 139 (137-145) mmol/L Potassium 3.2 L (3.5-5.1) mmol/L Chloride 107 (98-107) mmol/L Carbon Dioxide 23 (22-30) mmol/L Anion Gap 11.3 (5-15) MEQ/L BUN 14 (7-17) mg/dL Creatinine 1.00 (0.52-1.04) mg/dL Estimated GFR > 60.0 ML/MIN Glucose 145 H (74-106) mg/dL Calcium 8.3 L (8.4-10.2) mg/dL Total Bilirubin 0.30 (0.2-1.3) mg/dL AST 27 (14-36) U/L ALT 21 (0-35) U/L Alkaline Phosphatase 100 (38-126) U/L Serum Total Protein 6.4 (6.3-8.2) g/dL Albumin 3.6 (3.5-5.0) g/dL Amylase 48 (30-110) U/L Lipase 58 (23-300) U/L Influenza Type A Ag NEGATIVE (NEGATIVE) Influenza Type B Ag NEGATIVE (NEGATIVE) RSV (PCR) NEGATIVE (Negative) SARS-CoV-2 (PCR) NEGATIVE (NEGATIVE) - Progress Progress: improved Progress Note: 05/16/22 19:12 1L NS bolus 05/16/22 20:00 Etiology of diarrhea unclear. Will start Flagyl 500mg bid x1wk to see if it improves Pt asked for work excuse before discharge Counseled pt/family regarding: lab results, diagnosis, need for follow-up, rad results - Departure Departure Disposition: Home Clinical Impression: Diarrhea Condition: Stable Critical Care Time: No Referrals: REED CAM MD [Primary Care Provider] - Follow up/PCP as directed Instructions: Diarrhea and Travelers' Diarrhea, Adult (DC) Additional Instructions: Fluids Flagyl 500mg twice a day for 1 week(No alcohol while taking flagyl) Follow up with Dr. Cam Return to ER for increasing abdominal pain or temperature greater than 100.5 Forms: Work/School Release Form Prescriptions: Metronidazole 500 mg [Flagyl 500 MG] 500 mg PO BID 7 Days #14 tablet
[2022-05-16 16:47] LABS: ALBUMIN 3.6 g/dL (3.5-5.0); ALKALINE PHOSPHATASE 100 U/L (38-126); AMYLASE 48 U/L (30-110); ANION GAP 11.3 MEQ/L (5-15); BLOOD UREA NITROGEN 14 mg/dL (7-17); CHLORIDE 107 mmol/L (98-107); Calcium 8.3 mg/dL (8.4-10.2); Carbon Dioxide 23 mmol/L (22-30); EST GLOMERULAR FILTRATION RATE > 60.0 ML/MIN; Glucose 145 mg/dL (74-106); LIPASE 58 U/L (23-300); Potassium 3.2 mmol/L (3.5-5.1); SGOT/AST 27 U/L (14-36); SGPT/ALT 21 U/L (0-35); SODIUM 139 mmol/L (137-145); Total Protein 6.4 g/dL (6.3-8.2)
[2022-05-16 17:02] LABS: INFLUENZA A NEGATIVE (NEGATIVE); INFLUENZA B NEGATIVE (NEGATIVE); RESPIRATORY SYNCTIAL VIRUS NEGATIVE (Negative); SARS-CoV-2 Xpert Express NEGATIVE (NEGATIVE)
[2022-05-16 18:26] VITALS: PULSE 58
[2022-05-16] MEDS ORDERED: Flagyl 500 MG PO ONE (19:14)
[2022-05-16] MEDS ORDERED: Flagyl 500 MG ONE (19:15)
[2022-05-16 19:16] VITALS: O2SAT 95
[2022-05-16 19:21] VITALS: BP 147/67
--- NOTE | 2022-05-17 08:39 | XRAY ---
Indication: Diarrhea and nausea. Multiple contiguous axial images obtained through the abdomen and pelvis without contrast. Comparison: August 24, 2021 Lung bases demonstrates stable bibasilar fibrosis/scarring and small left base calcified granuloma. Heart not enlarged. Stable small hiatal hernia. Again gastric bypass surgery, hysterectomy, and cholecystectomy. Noncontrasted stomach and bowel loops remain nonobstructed again with scattered colonic diverticulosis. No free fluid/air. Remaining liver, pancreas, spleen, adrenal glands, kidneys, ureters, and bladder are unremarkable for noncontrast exam. Again mild aortoiliac calcifications without AAA. Osseous structures intact again with mild degenerative changes throughout the thoracolumbar spine. Stable supraumbilical fatty ventral hernia. Impression: 1. Again small hiatal hernia, colonic diverticulosis, arteriosclerotic disease, fatty ventral hernia, and old granulomatous disease. 2. Remaining CT abdomen/pelvis without contrast exam is again negative. Comment: Preliminary interpretation made by [facility]. No critical discrepancy.
== END 2022-05-16 19:25 | disposition home or self-care (01) ==
LOC: ED 15:33
DX: R19.7 Diarrhea, unspecified (principal); R11.0 Nausea; R10.84 Generalized abdominal pain; E78.5 Hyperlipidemia, unspecified; I10 Essential (primary) hypertension; Z79.899 Other long term (current) drug therapy; Z20.828 Contact with and (suspected) exposure to other viral communicable diseases
CPT/HCPCS: 0241U; 36000; 36415; 74176; 80053; 82150; 83690; 85025; 96360; 99284; A9270-GY

== ENCOUNTER 2022-08-08 18:07 | Emergency (ER) | payer OTHER ==
[2022-08-08] MEDS ORDERED: solu-MEDROL 125 MG, Sterile H2O 10 ml 2 ML IV ONE ×2 (18:47)
[2022-08-08] MEDS ORDERED: Zofran 4 MG/2 ML VIAL IV ONE (18:47)
[2022-08-08] MEDS ORDERED: SUBLIMAZE 100 MCG/2 ML IV ONE (18:47)
[2022-08-08] MEDS ORDERED: BENADRYL 50 MG/ML IV ONE (18:47)
[2022-08-08] MEDS ORDERED: solu-MEDROL ONE (19:26)
[2022-08-08] MEDS ORDERED: Zofran 4 MG/2 ML VIAL ONE (19:26)
[2022-08-08] MEDS ORDERED: BENADRYL 50 MG/ML ONE (19:26)
[2022-08-08] MEDS ORDERED: SUBLIMAZE 100 MCG/2 ML ONE (19:26)
[2022-08-08] MEDS ORDERED: Sterile H2O 10 ml IJ ONE (19:26)
[2022-08-08 19:49] LABS: INFLUENZA A NEGATIVE (NEGATIVE); INFLUENZA B NEGATIVE (NEGATIVE); RESPIRATORY SYNCTIAL VIRUS NEGATIVE (Negative); SARS-CoV-2 Xpert Express NEGATIVE (NEGATIVE)
[2022-08-08 20:09] VITALS: BP 160/85
--- NOTE | 2022-08-08 20:16 | ERPHSYRPT ---
- History of Present Illness Time Seen by Provider: 08/08/22 18:35 Source: patient Exam Limitations: no limitations Patient Subjective Stated Complaint: Headache Triage Nursing Assessment: Patient ambulated back to ED and transferred self to bed. Patient A+O X3. Patient's skin pink, warm and dry. Patient complains of left sided headache since Jul 27. Patient reports occasional nausea and clear nasal drainage. Patient complains of pain 7/10 to left side of head that is light sensitive. Timing/Duration: day(s) (12) Quality: stabbing, throbbing Head Pain Location: temporal (left) Severity of Pain-Max: severe Severity of Pain-Current: mild Recent Head Trauma: chronic headaches Modifying Factors: Improves With: exposure to light Associated Symptoms: confusion, nausea/vomiting, sensitive to light Previous symptoms: same symptoms as today Allergies/Adverse Reactions: hydrocodone bitartrate [From Vicodin] Allergy (Mild, Verified 08/08/22 18:19) Itching oxycodone [Oxycodone] Allergy (Mild, Verified 08/08/22 18:19) Itching Sulfa (Sulfonamide Antibiotics) [Sulfa(Sulfonamide Antibiotics)] Allergy (Mild, Verified 08/08/22 18:19) Hives silk Adverse Reaction (Intermediate, Verified 08/08/22 18:19) Blisters Silk surgical tape codeine Adverse Reaction (Mild, Verified 08/08/22 18:19) Itching meperidine HCl [From Demerol] Adverse Reaction (Mild, Verified 08/08/22 18:19) Vomiting Home Medications: Aspirin 81 mg PO DAILY 02/16/15 [History] Atorvastatin Calcium [Lipitor] 80 mg PO HS 02/16/15 [History] Dextroamphetamine/Amphetamine [Adderall 20 mg Tablet] 30 mg PO DAILY 07/09/17 [History] Trazodone HCl 300 mg PO HS 02/21/19 [History] Omeprazole 40 mg PO HS 11/24/19 [History] Hx Tetanus, Diphtheria Vaccination/Date Given: No Hx Influenza Vaccination/Date Given: No Hx Pneumococcal Vaccination/Date Given: No Immunizations Up to Date: Yes Travel Risk - International Travel Have you traveled outside of the country in past 3 weeks: No - Coronavirus Screening Are you exhibiting any of the following symptoms?: No Close contact with a COVID-19 positive Pt in past 14-21 Days: No - Vaccine Status Have you recieved a Covid-19 vaccination: Yes 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 - Vaccination Dates Date of 2cond Vaccination (if applicable): 12/18/2020 - Review of Systems Constitutional: No Fever, No Chills Eyes: Photophobia Ears, Nose, & Throat: No Symptoms Respiratory: No Cough, No Dyspnea Cardiac: No Chest Pain, No Edema, No Syncope Abdominal/Gastrointestinal: Nausea, No Abdominal Pain, No Vomiting, No Diarrhea Genitourinary Symptoms: No Dysuria Musculoskeletal: No Back Pain, No Neck Pain Skin: No Rash Neurological: Headache, No Dizziness, No Focal Weakness, No Sensory Changes Psychological: No Symptoms Endocrine: No Symptoms All Other Systems: Reviewed and Negative - Past Medical History Pertinent Past Medical History: Yes Neurological History: No Pertinent History ENT History: No Pertinent History Cardiac History: Coronary Artery Disease, High Cholesterol, Hypertension Respiratory History: No Pertinent History Endocrine Medical History: No Pertinent History Musculoskeletal History: Osteoarthritis, Other GI Medical History: GERD, Gallbladder Disease, GI Bleed History: Renal Disease, Other Psycho-Social History: Anxiety, Depression Female Reproductive Disorders: Abnormal Uterine Bleeding, Endometriosis Other Medical History: 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 BILATERAL KNEE LATERAL RELEASES 15 YEARS AGO. HYSTERECTOMY. GALL BLADDER. GOUT - Past Surgical History Past Surgical History: Yes Neuro Surgical History: No Pertinent History Cardiac: CABG, Cardiac Catheterization Respiratory: No Pertinent History Gastrointestinal: Cholecystectomy Genitourinary: Kidney Surgery Musculoskeletal: Other Female Surgical History: Hysterectomy Other Surgical History: knee muscle lateral release dwaine , kidney stone removal x 7, hernia repair - Social History Smoking Status: Never smoker Exposure to second hand smoke: No Drug Use: none Patient Lives Alone: No Significant Family History: heart disease, hypertension - Nursing Vital Signs Nursing Vital Signs: Initial Vital Signs Temperature 98.6 F 08/08/22 18:21 Pulse Rate 69 08/08/22 18:21 Respiratory Rate 18 08/08/22 18:21 Blood Pressure 213/99 08/08/22 18:21 O2 Sat by Pulse Oximetry 99 08/08/22 18:21 Pain Scale Pain Intensity 1 - Physical Exam General Appearance: mild distress Eye Exam: PERRL/EOMI Ears, Nose, Throat Exam: normal ENT inspection, moist mucous membranes Neck Exam: normal inspection, supple, full range of motion, No meningismus Respiratory Exam: normal breath sounds, lungs clear Cardiovascular Exam: regular rate/rhythm, normal heart sounds Gastrointestinal/Abdominal Exam: soft, No tenderness, No distention Back Exam: normal inspection, normal range of motion Mental Status Exam: alert, oriented x 3, 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 Exam: normal speech, PERRL, No facial droop Coordination/Gait Exam: normal cerebellar function Motor/Sensory Exam: no motor deficit, no sensory deficit Skin Exam: normal color, warm, dry, No rash SpO2: 96 - Course Nursing assessment & vital signs reviewed: Yes - CT Exams Head CT Interpretation: Tele-radiologist Report Ordered Tests: Active Orders 24 hr Category Date Time Status HEAD WITHOUT CONTRAST [CT] Stat Exams 08/08/22 18:50 Taken Medication Summary Discontinued Medications Generic Name Dose Route Start Last Admin Trade Name Freq PRN Reason Stop Dose Admin Methylprednisolone Sodium 0 mg 08/08/22 18:47 08/08/22 19:33 Succinate 125 mg/ Sterile IV 08/08/22 18:48 125 mg Water 2 ml STAT ONE Administration Diphenhydramine HCl 25 mg 08/08/22 18:47 08/08/22 19:34 Diphenhydramine Hcl 50 Mg/Ml Vial IV 08/08/22 18:48 25 mg STAT ONE Administration Diphenhydramine HCl Confirm 08/08/22 19:26 Diphenhydramine Hcl 50 Mg/Ml Vial Administered 08/08/22 19:27 Dose 50 mg .ROUTE .STK-MED ONE Fentanyl Citrate 100 mcg 08/08/22 18:47 08/08/22 19:34 Fentanyl Citrate 100 Mcg/2 Ml* Vial IV 08/08/22 18:48 100 mcg STAT ONE Administration Fentanyl Citrate Confirm 08/08/22 19:26 Fentanyl Citrate 100 Mcg/2 Ml* Vial Administered 08/08/22 19:27 Dose 100 mcg .ROUTE .STK-MED ONE Methylprednisolone Sodium Succinate Confirm 08/08/22 19:26 Methylprednis Sod Succ 125 Mg/2 Ml Vial Administered 08/08/22 19:27 Dose 125 mg .ROUTE .STK-MED ONE Ondansetron HCl 4 mg 08/08/22 18:47 08/08/22 19:33 Ondansetron Hcl 4 Mg/2 Ml Vial IV 08/08/22 18:48 4 mg STAT ONE Administration Ondansetron HCl Confirm 08/08/22 19:26 Ondansetron Hcl 4 Mg/2 Ml Vial Administered 08/08/22 19:27 Dose 4 mg .ROUTE .STK-MED ONE Sterile Water Confirm 08/08/22 19:26 Water For Injection,Sterile 10 Ml Vial Administered 08/08/22 19:27 Dose 10 ml IJ .STK-MED ONE Lab/Rad Data: Laboratory Results 08/08/22 Range/Units 19:11 Influenza Type A Ag NEGATIVE (NEGATIVE) Influenza Type B Ag NEGATIVE (NEGATIVE) RSV (PCR) NEGATIVE (Negative) SARS-CoV-2 (PCR) NEGATIVE (NEGATIVE) - Progress Progress: improved Air Movement: good Blood Culture(s) Obtained: No Antibiotics given: No - Departure Departure Disposition: Home Clinical Impression: Migraine headache Condition: Stable Critical Care Time: No Referrals: REED CAM MD [Primary Care Provider] - Follow up/PCP as directed Instructions: Headache, Adult (DC)
[2022-08-08 20:33] VITALS: PULSE 60; O2SAT 95
--- NOTE | 2022-08-09 08:40 | XRAY ---
Indication: Headache. Multiple contiguous axial images obtained through the head without contrast. Comparison: March 31, 2022 Normal appearing brain parenchyma, ventricles, and bony calvarium for patient's age. Visualized paranasal sinuses and mastoid air cells are clear. Impression: Continued normal CT head without contrast exam. Comment: Preliminary interpretation made by [facility]. No critical discrepancy.
== END 2022-08-08 20:45 | disposition home or self-care (01) ==
LOC: ED 18:07
DX: G43.909 Migraine, unspecified, not intractable, without status migrainosus (principal); R11.0 Nausea; E78.5 Hyperlipidemia, unspecified; I10 Essential (primary) hypertension; Z79.899 Other long term (current) drug therapy
CPT/HCPCS: 0241U; 36000; 70450; 96374; 99284; 96375; J1200; J2405; J2930; J3010

== ENCOUNTER 2022-08-29 10:01 | Emergency (ER) | payer OTHER ==
[2022-08-29] MEDS ORDERED: Sodium Chloride 0.9% 1000 ML 1,000 ML IV STA (10:20)
[2022-08-29 10:57] LABS: Absolute Neutrophil Ct (ANC) 9.41 x10^3/uL (1.4-6.9); Basophil (Absolute #) 0.04 x10^3/uL (0-0.4); Eosinophil % 0.8 % (0.00-5.0); Hemoglobin 11.1 g/dL (12.0-16.0); Lymphocyte (Absolute #) 1.93 x10^3/uL (1.0-4.6); Lymphocytes % 15.7 % (24.0-44.0); Mean Cell Volume 76.3 fL (78-100); Mean Corpuscular Hemoglobin 22.9 pg (26-32); Mean Platelet Volume 9.7 fL (7.5-11.0); Monocyte (Absolute #) 0.79 x10^3/uL (0.0-1.3); Monocytes % 6.4 % (0.0-12.0); Neutrophil % 76.6 % (36.0-66.0); Platelet Count 356 x10^3/uL (150-450); Red Blood Count 4.85 x10^6/uL (4.1-5.4); Red Cell Distribution Width 18.4 % (11.5-14.0); White Blood Count 12.3 x10^3/uL (4.0-10.5)
--- NOTE | 2022-08-29 10:59 | ERPHSYRPT ---
- History of Present Illness Time Seen by Provider: 08/29/22 10:57 Historian: patient, EMS Exam Limitations: no limitations Patient Subjective Stated Complaint: Pt states "I woke up around 4 am and my left lower flank was hurting really bad." Triage Nursing Assessment: Pt presented alert and oriented X 3, skin pwd. Pt ambulates with a slow hunched over gait, able to speak in clear full sentences pt in no apparent respiratory distress. Pt will occasionally wince and moan. Physician History: Pt states "I woke up around 4 am and my left lower flank was hurting really bad." Patient is 57-year-old female with significant past medical history of recurrent renal stone started having sudden abdominal pain on the left flank around 4:00 in the morning so she came to the emergency room. She denies any nausea vomiting. Timing/Duration: today Quality: cramping, throbbing Abdominal Pain Onset Location: flank (left flank) Pain Radiation: groin Severity of Pain-Current: moderate Modifying Factors: Improves With: nothing Associated Symptoms: denies symptoms Previous symptoms: same symptoms as today Allergies/Adverse Reactions: hydrocodone bitartrate [From Vicodin] Allergy (Mild, Verified 08/08/22 18:19) Itching oxycodone [Oxycodone] Allergy (Mild, Verified 08/08/22 18:19) Itching Sulfa (Sulfonamide Antibiotics) [Sulfa(Sulfonamide Antibiotics)] Allergy (Mild, Verified 08/08/22 18:19) Hives silk Adverse Reaction (Intermediate, Verified 08/08/22 18:19) Blisters Silk surgical tape codeine Adverse Reaction (Mild, Verified 08/08/22 18:19) Itching meperidine HCl [From Demerol] Adverse Reaction (Mild, Verified 08/08/22 18:19) Vomiting Home Medications: Aspirin 81 mg PO DAILY 02/16/15 [History] Atorvastatin Calcium [Lipitor] 80 mg PO HS 02/16/15 [History] Dextroamphetamine/Amphetamine [Adderall 20 mg Tablet] 30 mg PO DAILY 07/09/17 [History] Trazodone HCl 300 mg PO HS 02/21/19 [History] Omeprazole 40 mg PO HS 11/24/19 [History] Hx Tetanus, Diphtheria Vaccination/Date Given: No Hx Influenza Vaccination/Date Given: No Hx Pneumococcal Vaccination/Date Given: No Immunizations Up to Date: Yes Travel Risk - International Travel Have you traveled outside of the country in past 3 weeks: No - Coronavirus Screening Are you exhibiting any of the following symptoms?: No Close contact with a COVID-19 positive Pt in past 14-21 Days: No - Vaccine Status Have you recieved a Covid-19 vaccination: Yes [employer]: Moderna - Vaccination Dates Date of 2cond Vaccination (if applicable): 12/18/2020 - Review of Systems Constitutional: No Fever, No Chills Eyes: No Symptoms Ears, Nose, & Throat: No Symptoms Respiratory: No Cough, No Dyspnea Cardiac: No Chest Pain, No Edema, No Syncope Abdominal/Gastrointestinal: Abdominal Pain, No Nausea, No Vomiting, No Diarrhea Genitourinary Symptoms: Dysuria Musculoskeletal: No Back Pain, No Neck Pain Skin: No Rash Neurological: No Dizziness, No Focal Weakness, No Sensory Changes Psychological: No Symptoms Endocrine: No Symptoms All Other Systems: Reviewed and Negative - Past Medical History Pertinent Past Medical History: Yes Neurological History: No Pertinent History ENT History: No Pertinent History Cardiac History: Coronary Artery Disease, High Cholesterol, Hypertension Respiratory History: No Pertinent History Endocrine Medical History: No Pertinent History Musculoskeletal History: Osteoarthritis, Other GI Medical History: GERD, Gallbladder Disease, GI Bleed History: Renal Disease, Other Psycho-Social History: Anxiety, Depression Female Reproductive Disorders: Abnormal Uterine Bleeding, Endometriosis Other Medical History: 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 BILATERAL KNEE LATERAL RELEASES 15 YEARS AGO. HYSTERECTOMY. GALL BLADDER. GOUT - Past Surgical History Past Surgical History: Yes Neuro Surgical History: No Pertinent History Cardiac: CABG, Cardiac Catheterization Respiratory: No Pertinent History Gastrointestinal: Cholecystectomy Genitourinary: Kidney Surgery Musculoskeletal: Other Female Surgical History: Hysterectomy Other Surgical History: knee muscle lateral release dwaine , kidney stone removal x 7, hernia repair - Social History Smoking Status: Never smoker Exposure to second hand smoke: No Drug Use: none Patient Lives Alone: No Significant Family History: heart disease, hypertension - Nursing Vital Signs Nursing Vital Signs: Initial Vital Signs Temperature 97.2 F 08/29/22 10:06 Pulse Rate 62 08/29/22 10:06 Respiratory Rate 20 08/29/22 10:06 Blood Pressure 186/88 08/29/22 10:06 O2 Sat by Pulse Oximetry 100 08/29/22 10:06 Pain Scale Pain Intensity 2 - Physical Exam General Appearance: no apparent distress, alert Eye Exam: PERRL/EOMI, eyes nml inspection Ears, Nose, Throat Exam: normal ENT inspection, pharynx normal, moist mucous membranes Neck Exam: normal inspection, non-tender, supple, full range of motion Respiratory Exam: normal breath sounds, lungs clear, No respiratory distress Cardiovascular Exam: regular rate/rhythm, normal heart sounds Gastrointestinal/Abdomen Exam: soft, No tenderness, No mass Back Exam: normal inspection, normal range of motion, No CVA tenderness, No vertebral tenderness Extremity Exam: normal inspection, normal range of motion, pelvis stable Neurologic Exam: alert, oriented x 3, cooperative, normal mood/affect, nml cerebellar function, sensation nml, No motor deficits Skin Exam: normal color, warm, dry SpO2: 100 - Course Nursing assessment & vital signs reviewed: Yes - CT Exams Abdomen/Pelvis CT Interpretation: Tele-radiologist Report (sigmoid diverticulitis) Ordered Tests: Active Orders 24 hr Category Date Time Status ABDOMEN AND PELVIS W/0 CONTRAS [CT] Stat Exams 08/29/22 10:43 Taken CBC W DIFF Stat Lab 08/29/22 10:57 Completed CMP Stat Lab 08/29/22 10:57 Completed Medication Summary Generic Name Dose Route Start Last Admin Trade Name Freq PRN Reason Stop Dose Admin Ceftriaxone Sodium/Dextrose 1 g in 50 mls @ 100 mls/hr 08/29/22 12:03 08/29/22 12:06 Rocephin 1 Gm-D5w 50 Ml Bag IV 08/29/22 12:32 100 mls/hr STAT STA 100 mls/hr Administration Discontinued Medications Generic Name Dose Route Start Last Admin Trade Name Freq PRN Reason Stop Dose Admin Sodium Chloride 1,000 mls @ 999 mls/hr 08/29/22 10:20 08/29/22 11:14 Sodium Chloride 0.9% 1000 Ml IV 08/29/22 11:20 999 mls/hr .Q1H1M STA Administration Sodium Chloride Confirm 08/29/22 11:13 Sodium Chloride 0.9% 1000 Ml Administered 08/29/22 11:14 Dose 1,000 mls @ ud .ROUTE .STK-MED ONE Ketorolac Tromethamine 30 mg 08/29/22 11:02 08/29/22 11:14 Ketorolac Tromethamine 30 Mg/Ml Inj IV 08/29/22 11:03 30 mg STAT ONE Administration Ketorolac Tromethamine Confirm 08/29/22 11:13 Ketorolac Tromethamine 30 Mg/Ml Inj Administered 08/29/22 11:14 Dose 30 mg .ROUTE .STK-MED ONE Lab/Rad Data: Laboratory Result Diagrams 08/29/22 10:57 08/29/22 10:57 Laboratory Results 08/29/22 08/29/22 Range/Units 10:57 10:57 WBC 12.3 H (4.0-10.5) x10^3/uL RBC 4.85 (4.1-5.4) x10^6/uL Hgb 11.1 L (12.0-16.0) g/dL Hct 37.0 (35-47) % MCV 76.3 L (78-100) fL MCH 22.9 L (26-32) pg MCHC 30.0 L (32-36) g/dL RDW 18.4 H (11.5-14.0) % Plt Count 356 (150-450) x10^3/uL MPV 9.7 (7.5-11.0) fL Gran % 76.6 H (36.0-66.0) % Immature Gran % (Auto) 0.2 (0.00-0.4) % Nucleat RBC Rel Count 0.0 (0.00-0.1) % Eos # (Auto) 0.10 (0-0.5) x10^3/uL Immature Gran # (Auto) 0.03 (0.00-0.03) x10^3u/L Absolute Lymphs (auto) 1.93 (1.0-4.6) x10^3/uL Absolute Monos (auto) 0.79 (0.0-1.3) x10^3/uL Absolute Nucleated RBC 0.00 (0.00-0.01) x10^3u/L Lymphocytes % 15.7 L (24.0-44.0) % Monocytes % 6.4 (0.0-12.0) % Eosinophils % 0.8 (0.00-5.0) % Basophils % 0.3 (0.0-0.4) % Absolute Granulocytes 9.41 H (1.4-6.9) x10^3/uL Basophils # 0.04 (0-0.4) x10^3/uL Sodium 136 L (137-145) mmol/L Potassium 3.5 (3.5-5.1) mmol/L Chloride 104 (98-107) mmol/L Carbon Dioxide 25 (22-30) mmol/L Anion Gap 11.4 (5-15) MEQ/L BUN 16 (7-17) mg/dL Creatinine 1.01 (0.52-1.04) mg/dL Estimated GFR 59.8 ML/MIN Glucose 111 H (74-106) mg/dL Calcium 8.9 (8.4-10.2) mg/dL Total Bilirubin 0.80 (0.2-1.3) mg/dL AST 22 (14-36) U/L ALT 18 (0-35) U/L Alkaline Phosphatase 118 (38-126) U/L Serum Total Protein 7.5 (6.3-8.2) g/dL Albumin 4.1 (3.5-5.0) g/dL - Progress Progress: improved Counseled pt/family regarding: lab results, diagnosis, need for follow-up, rad results - Departure Departure Disposition: Home Clinical Impression: Sigmoid diverticulitis Condition: Stable Critical Care Time: No Referrals: REED CAM MD [Primary Care Provider] - Follow up/PCP as directed Instructions: Diverticulitis (DC) Additional Instructions: Discharge/Care Plan BHUMIKA BERUMEN was seen on 08/29/22 in the Emergency Room. The patient was counseled regarding Diagnosis,Lab results, Imaging studies, need for follow up and when to return to the Emergency Room. Prescriptions given: Discharge Note I have spoken with the patient and/or caregivers. I have explained the patient's condition, diagnosis and treatment plan based on the information available to me at this time. I have answered the patient's and/or caregiver's questions and addressed any concerns. The patient and/or caregivers have as good understanding of the patient's diagnosis, condition and treatment plan as can be expected at this point. The vital signs have been stable. The patient's condition is stable and appropriate for discharge from the emergency department. The patient will pursue further outpatient evaluation with the primary care physician or other designated or consulting physician as outlined in the discharge instructions. The patient and/or caregivers are agreeable to this plan of care and follow-up instructions have been explained in detail. The patient and/or caregivers have received these instruction. The patient/and or caregivers are aware that any significant change in condition or worsening of symptoms should prompt an immediate return to this or the closest emergency department or call 911. BHUMIKA BERUMEN was seen on 08/29/22 n the Emergency Room. At that time you were treated for an emergent condition, during your visit Laboratory, Radiology and/or other procedures may have been ordered. It is very important that you follow-up with your Primary Care Physician REED CAM within the next 24-48 hours to review your Emergency Room visit and the final results of testing that was ordered. Some test results such as Urine Cultures, Blood Cultures, and other cultures if ordered will not be finalized for 24-48 hours. If you do not have a Primary Care Provider please call the medical records department at [phone] to obtain a copy of your results or you may sign into our patient portal to obtain these results by visiting us @ [email or web address] and completing the following steps: 1. Click on the Patient Portal link 2. Click the Patient Self Enrollment Link to complete the enrollment form and entering your 3. Once the enrollment form is completed you will receive an email with a temporary ID and password at the email address you provided. 4. Next choose a user name and password. Your user name must be at least 4 characters long and your password must be at least 4 characters long. 5. Choose a security question from the list and provide your answer to the question. If you already have signed into the Health Portal you may access your Health Care Information 11/04 by the following steps: 1. Login to our website @ [email or web address] 2. Enter your original user name and password. FAQS The [facility] Health Portal is an online tool that contains your Lab Results, Radiology Reports, Visit History, Discharge Instructions and Health Summary Lab and Radiology Results will not be available for 72 hours on the portal. The Portal is a secure site, passwords are encryted and URLs are re-written so they cannot be copied and pasted. You and authorized family members are the only ones who can access your Portal. Also there is a timeout feature that protects your information if you leave the Portal page open. If you have technical difficulty please use the Contact Us link on the page this will allow you to submit any questions you have regarding the Portal or you may contact the Medical Record Department at [phone]. Prescriptions: Metronidazole 500 mg [Flagyl 500 MG] 500 mg PO TID #21 tablet
[2022-08-29] MEDS ORDERED: TORAdol 30 mg Injection IV ONE (11:02)
[2022-08-29 11:10] LABS: ALBUMIN 4.1 g/dL (3.5-5.0); ANION GAP 11.4 MEQ/L (5-15); BILIRUBIN,TOTAL 0.8 mg/dL (0.2-1.3); Calcium 8.9 mg/dL (8.4-10.2); Creatinine 1 1.01 mg/dL (0.52-1.04); EST GLOMERULAR FILTRATION RATE 59.8 ML/MIN; Potassium 3.5 mmol/L (3.5-5.1); Total Protein 7.5 g/dL (6.3-8.2)
[2022-08-29] MEDS ORDERED: Sodium Chloride 0.9% 1000 ML 1,000 ML ONE (11:13)
[2022-08-29] MEDS ORDERED: TORAdol 30 mg Injection ONE (11:13)
[2022-08-29] MEDS ORDERED: ROCEPHIN 1 Gm-D5w 50 ml Bag** 1 G/50 ML IVPB IV STA (12:03)
[2022-08-29] MEDS ORDERED: ROCEPHIN 1 Gm-D5w 50 ml Bag** 1 G/50 ML IVPB IV ONE (12:05)
[2022-08-29 12:20] VITALS: BP 141/68; PULSE 63; O2SAT 97
--- NOTE | 2022-08-29 19:17 | XRAY ---
Indication: Left flank pain. History of kidney stones. Multiple contiguous axial images obtained through the abdomen and pelvis without contrast using renal stone protocol. Comparison: May 16, 2022. Lung bases again demonstrates small left base calcified granuloma. Heart not enlarged. Again small hiatal hernia. No renal calculus or evidence for obstructive uropathy in either system. Again gastric bypass surgery, hysterectomy, and cholecystectomy. Noncontrasted stomach and bowel loops appear nonobstructed. Again scatter colonic diverticulosis. Proximal sigmoid colon demonstrates new focus of mild diverticulitis. No free fluid/air. Remaining liver, pancreas, spleen, adrenal glands, kidneys, ureters, and bladder are unremarkable for noncontrast exam. Again mild aortoiliac calcifications without AAA. Osseous structures intact again with mild degenerative changes throughout the spine. Again small fatty supraumbilical ventral hernia. Impression: 1. Negative renal calculus or evidence for obstructive uropathy. 2. Again scattered colonic diverticulosis with new mild proximal sigmoid diverticulitis. No free fluid/air. 3. Again chronic findings including small hiatal hernia, arteriosclerotic disease, fatty ventral hernia, chronic bony findings, and old granulomatous disease. Comment: Preliminary interpretation made by [facility]. No critical discrepancy.
== END 2022-08-29 12:39 | disposition home or self-care (01) ==
LOC: ED 10:01
DX: K57.32 Diverticulitis of large intestine without perforation or abscess without bleeding (principal); R10.9 Unspecified abdominal pain; E78.5 Hyperlipidemia, unspecified; I10 Essential (primary) hypertension; Z79.899 Other long term (current) drug therapy
CPT/HCPCS: 36415; 74176; 80053; 85025; 96360; 96365; 96374; 99284; J0696; J1885

== ENCOUNTER 2022-11-09 10:29 | Observation (INO) | payer OTHER ==
--- NOTE | 2022-11-09 11:22 | XRAY ---
Indication: Palpitations. Comparison: March 04, 2017 Portable chest again demonstrates minimal left base subsegmental atelectasis/scarring. No focal infiltrate, consolidation, or large effusion. Heart not enlarged again with CABG. Bony thorax intact again with osteopenia and mild degenerative changes. Impression: Nonacute chest with chronic features.
[2022-11-09 11:25] LABS: Absolute Neutrophil Ct (ANC) 4.79 x10^3/uL (1.4-6.9); BASOPHIL % 0.6 % (0.0-0.4); Basophil (Absolute #) 0.05 x10^3/uL (0-0.4); Eosinophil (Absolute #) 0.24 x10^3/uL (0-0.5); Hematocrit 37.5 % (35-47); Hemoglobin 11.4 g/dL (12.0-16.0); IMMATURE GRAN # 0.02 x10^3u/L (0.00-0.03); IMMATURE GRAN % 0.2 % (0.00-0.4); Lymphocyte (Absolute #) 2.27 x10^3/uL (1.0-4.6); Mean Cell Volume 76.5 fL (78-100); Mean Corpuscular Hemoglobin 23.3 pg (26-32); Mean Corpuscular Hgb Concent. 30.4 g/dL (32-36); Mean Platelet Volume 9.8 fL (7.5-11.0); Monocyte (Absolute #) 0.75 x10^3/uL (0.0-1.3); Monocytes % 9.2 % (0.0-12.0); Platelet Count 362 x10^3/uL (150-450); Red Cell Distribution Width 16.7 % (11.5-14.0); White Blood Count 8.1 x10^3/uL (4.0-10.5)
[2022-11-09 11:33] LABS: ALBUMIN 4.1 g/dL (3.5-5.0); ALKALINE PHOSPHATASE 127 U/L (38-126); ANION GAP 10.7 MEQ/L (5-15); BLOOD UREA NITROGEN 19 mg/dL (7-17); CHLORIDE 106 mmol/L (98-107); Calcium 9.1 mg/dL (8.4-10.2); Carbon Dioxide 25 mmol/L (22-30); Creatinine 1 0.91 mg/dL (0.52-1.04); EST GLOMERULAR FILTRATION RATE > 60.0 ML/MIN; Glucose 163 mg/dL (74-106); MAGNESIUM 2.1 mg/dL (1.6-2.3); Potassium 3.8 mmol/L (3.5-5.1); SGOT/AST 25 U/L (14-36); SGPT/ALT 19 U/L (0-35); SODIUM 137 mmol/L (137-145); Total Protein 7.1 g/dL (6.3-8.2)
--- NOTE | 2022-11-09 11:37 | ERPHSYRPT ---
- History of Present Illness Time Seen by Provider: 11/09/22 11:31 Source: patient Exam Limitations: no limitations Patient Subjective Stated Complaint: Palpitations Triage Nursing Assessment: Patient ambulated back to ED and transferred self to bed. Patient A+O X 3. Patient's skin pink, warm and dry. Patient complains of heart palpitations on and off for 6-8 weeks. Patient states she woke up feeling fine and went to work and was sitting at her desk when she started feeling her heart is "flipping". Patient denies chest pain, N/V or SOB. Patient states she is occassionally dizzy. lungs clear a/p dwaine. Physician History: Patient is a 57-year-old female presents emergency department for evaluation of heart palpitations and dizziness. Symptoms started while she was at work. Patient states symptoms started for the very first time approximately 6 to 8 weeks ago. Symptoms resolved and then reoccurred. No syncope. No associated chest pain. No nausea vomiting or diaphoresis. Patient had a quadruple bypass approximately 20 years ago. 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 Patient states her primary care doctor wants her to have a stress test however patient states her insurance will not cover it. Patient does not know her cholesterol level. Patient does not recall the last time it was tested however patient does have a history of hypertension and is taking her hypertensive medications. Patient has a sedentary job. Patient voices no other complaints or concerns at this time. Portions of this note were created with voice recognition technology. There may be grammatical, spelling, punctuation or sound alike errors Timing/Duration: today Severity: moderate Modifying Factors: Improves With: nothing Associated Symptoms: other (Dizziness) Allergies/Adverse Reactions: hydrocodone bitartrate [From Vicodin] Allergy (Mild, Verified 11/09/22 10:35) Itching oxycodone [Oxycodone] Allergy (Mild, Verified 11/09/22 10:35) Itching Sulfa (Sulfonamide Antibiotics) [Sulfa(Sulfonamide Antibiotics)] Allergy (Mild, Verified 11/09/22 10:35) Hives silk Adverse Reaction (Intermediate, Verified 11/09/22 10:35) Blisters Silk surgical tape codeine Adverse Reaction (Mild, Verified 11/09/22 10:35) Itching meperidine HCl [From Demerol] Adverse Reaction (Mild, Verified 11/09/22 10:35) Vomiting Home Medications: Aspirin 81 mg PO DAILY 02/16/15 [History] Atorvastatin Calcium [Lipitor] 80 mg PO HS 02/16/15 [History] Dextroamphetamine/Amphetamine [Adderall 20 mg Tablet] 30 mg PO DAILY 07/09/17 [History] Trazodone HCl 300 mg PO HS 02/21/19 [History] Omeprazole 40 mg PO HS 11/24/19 [History] Hx Tetanus, Diphtheria Vaccination/Date Given: No Hx Influenza Vaccination/Date Given: No Hx Pneumococcal Vaccination/Date Given: No Immunizations Up to Date: Yes Travel Risk - International Travel Have you traveled outside of the country in past 3 weeks: No - Coronavirus Screening Are you exhibiting any of the following symptoms?: No Close contact with a COVID-19 positive Pt in past 14-21 Days: No - Vaccine Status Have you recieved a Covid-19 vaccination: Yes [place]: Moderna - Vaccination Dates Date of 2cond Vaccination (if applicable): 12/18/2020 - Review of Systems Constitutional: No Symptoms, No Fever, No Chills Eyes: No Symptoms Ears, Nose, & Throat: No Symptoms Respiratory: No Symptoms, No Cough, No Dyspnea Cardiac: No Symptoms, No Chest Pain, No Edema, No Syncope Abdominal/Gastrointestinal: No Symptoms, No Abdominal Pain, No Nausea, No Vomiting, No Diarrhea Genitourinary Symptoms: No Symptoms, No Dysuria Musculoskeletal: No Symptoms, No Back Pain, No Neck Pain Skin: No Symptoms, No Rash Neurological: No Symptoms, No Dizziness, No Focal Weakness, No Sensory Changes Psychological: No Symptoms Endocrine: No Symptoms Hematologic/Lymphatic: No Symptoms Immunological/Allergic: No Symptoms All Other Systems: Reviewed and Negative - Past Medical History Pertinent Past Medical History: Yes Neurological History: No Pertinent History ENT History: No Pertinent History Cardiac History: Coronary Artery Disease, High Cholesterol, Hypertension Respiratory History: No Pertinent History Endocrine Medical History: No Pertinent History Musculoskeletal History: Osteoarthritis, Other GI Medical History: GERD, Gallbladder Disease, GI Bleed History: Renal Disease, Other Psycho-Social History: Anxiety, Depression Female Reproductive Disorders: Abnormal Uterine Bleeding, Endometriosis Other Medical History: 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 BILATERAL KNEE LATERAL RELEASES 15 YEARS AGO. HYSTERECTOMY. GALL BLADDER. GOUT - Past Surgical History Past Surgical History: Yes Neuro Surgical History: No Pertinent History Cardiac: CABG, Cardiac Catheterization Respiratory: No Pertinent History Gastrointestinal: Cholecystectomy Genitourinary: Kidney Surgery Musculoskeletal: Other Female Surgical History: Hysterectomy Other Surgical History: knee muscle lateral release dwaine , kidney stone removal x 7, hernia repair - Social History Smoking Status: Never smoker Exposure to second hand smoke: No Drug Use: none Patient Lives Alone: No Significant Family History: heart disease, hypertension - Nursing Vital Signs Nursing Vital Signs: Initial Vital Signs Temperature 96.8 F 11/09/22 10:35 Pulse Rate 44 L 11/09/22 10:35 Respiratory Rate 18 11/09/22 10:35 Blood Pressure 121/62 11/09/22 10:35 O2 Sat by Pulse Oximetry 99 11/09/22 10:35 Pain Scale Pain Intensity 0 - Physical Exam General Appearance: no apparent distress, alert Eye Exam: PERRL/EOMI, eyes nml inspection Ears, Nose, Throat Exam: normal ENT inspection, TMs normal, pharynx normal, moist mucous membranes Neck Exam: normal inspection, non-tender, supple, full range of motion Respiratory Exam: normal breath sounds, lungs clear, airway intact, No respiratory distress Cardiovascular Exam: regular rate/rhythm, normal heart sounds, normal peripheral pulses Gastrointestinal/Abdomen Exam: soft, normal bowel sounds, No tenderness, No mass Back Exam: normal inspection, normal range of motion, No CVA tenderness, No vertebral tenderness Extremity Exam: normal inspection, normal range of motion, pelvis stable Neurologic Exam: alert, oriented x 3, cooperative, normal mood/affect, sensation nml, No motor deficits Skin Exam: normal color, warm, dry, No rash Lymphatic Exam: No adenopathy SpO2 Interpretation: normal SpO2: 98 O2 Delivery: Room Air - Course Nursing assessment & vital signs reviewed: Yes EKG Interpreted by Me: RATE (41), Sinus Lázaro, NORMAL AXIS, NORMAL INTERVALS, Right Bundle Branch Block (T wave inversions lateral and anterior leads) - Radiology Exams Chest X-ray Interpretation: Teleradiologist Report (Nonacute chest with chronic features) Ordered Tests: Active Orders 24 hr Category Date Time Status Drug Safety Assistant STAT Care 11/09/22 10:49 Active EKG-ER Only STAT Care 11/09/22 10:48 Active IV Insertion STAT Care 11/09/22 10:48 Active Pulse Oximetry (ED) STAT Care 11/09/22 10:48 Active CHEST 1 VIEW (PORTABLE) Stat Exams 11/09/22 10:49 Completed CBC W DIFF Stat Lab 11/09/22 11:08 Completed CMP Stat Lab 11/09/22 11:08 Completed MAGNESIUM Stat Lab 11/09/22 11:08 Completed TROPONIN Q4H Lab 11/09/22 11:08 Completed TROPONIN Q4H Lab 11/09/22 15:00 Ordered TROPONIN Q4H Lab 11/09/22 19:00 Ordered Transfer Order Routine Transfer 11/09/22 Ordered Lab/Rad Data: Laboratory Result Diagrams 11/09/22 11:08 11/09/22 11:08 Laboratory Results 11/09/22 11/09/22 11/09/22 Range/Units 11:08 11:08 11:08 WBC 8.1 (4.0-10.5) x10^3/uL RBC 4.90 (4.1-5.4) x10^6/uL Hgb 11.4 L (12.0-16.0) g/dL Hct 37.5 (35-47) % MCV 76.5 L (78-100) fL MCH 23.3 L (26-32) pg MCHC 30.4 L (32-36) g/dL RDW 16.7 H (11.5-14.0) % Plt Count 362 (150-450) x10^3/uL MPV 9.8 (7.5-11.0) fL Gran % 59.0 (36.0-66.0) % Immature Gran % (Auto) 0.2 (0.00-0.4) % Nucleat RBC Rel Count 0.0 (0.00-0.1) % Eos # (Auto) 0.24 (0-0.5) x10^3/uL Immature Gran # (Auto) 0.02 (0.00-0.03) x10^3u/L Absolute Lymphs (auto) 2.27 (1.0-4.6) x10^3/uL Absolute Monos (auto) 0.75 (0.0-1.3) x10^3/uL Absolute Nucleated RBC 0.00 (0.00-0.01) x10^3u/L Lymphocytes % 28.0 (24.0-44.0) % Monocytes % 9.2 (0.0-12.0) % Eosinophils % 3.0 (0.00-5.0) % Basophils % 0.6 (0.0-0.4) % Absolute Granulocytes 4.79 (1.4-6.9) x10^3/uL Basophils # 0.05 (0-0.4) x10^3/uL Sodium 137 (137-145) mmol/L Potassium 3.8 (3.5-5.1) mmol/L Chloride 106 (98-107) mmol/L Carbon Dioxide 25 (22-30) mmol/L Anion Gap 10.7 (5-15) MEQ/L BUN 19 H (7-17) mg/dL Creatinine 0.91 (0.52-1.04) mg/dL Estimated GFR > 60.0 ML/MIN Glucose 163 H (74-106) mg/dL Calcium 9.1 (8.4-10.2) mg/dL Magnesium 2.1 (1.6-2.3) mg/dL Total Bilirubin 0.30 (0.2-1.3) mg/dL AST 25 (14-36) U/L ALT 19 (0-35) U/L Alkaline Phosphatase 127 H (38-126) U/L Troponin I < 0.012 (0.000-0.034) ng/mL Serum Total Protein 7.1 (6.3-8.2) g/dL Albumin 4.1 (3.5-5.0) g/dL - Progress Progress: improved Progress Note: Patient is a 57-year-old female with a history of CABG, hypertension, unknown ch olesterol level, presents to emergency department for evaluation of heart palpitations and dizziness. Complexity of problems addressed is moderate. No critical care time. Testing orders include EKG which was read by Dr. Perez and dependently. Chest x- ray completed and read by radiologist. Patient received a CBC CMP COVID test magnesium level and troponin level. No significant laboratory findings. Patient served as an independent historian. Complexity of data analyzed is moderate. Test ordered. Results reviewed. Patient served as independent historian. EKG independently read by Dr. Perez. Patient's systemic manifestations include dizziness. Risk of complication and or morbidity/mo rtality of patient management is high. Patient will require hospitalization. Patient received nitroglycerin topical. Plan of care discussed with patient. She agrees admission [facility] for further evaluation and treatment. Level of EM service provided is high. 11/09/22 11:[address] Coates who accepts admission to observation. Patient voices no other complaints or concerns at this time. 11/09/22 12:10 Discussed with : Derrell Will see patient in: hospital (observation) Counseled pt/family regarding: lab results, diagnosis, rad results - Departure Departure Disposition: Observation Clinical Impression: Abnormal EKG, Heart palpitations, Dizziness, Symptomatic bradycardia Condition: Stable Critical Care Time: No Referrals: REED CAM MD [Primary Care Provider] - Follow up/PCP as directed
[2022-11-09 12:13] LABS: INFLUENZA A NEGATIVE (NEGATIVE); INFLUENZA B NEGATIVE (NEGATIVE); RESPIRATORY SYNCTIAL VIRUS NEGATIVE (Negative); SARS-CoV-2 Xpert Express NEGATIVE (NEGATIVE)
[2022-11-09] MEDS ORDERED: MILK OF MAGNESIA 30 ML PO PRN (12:32)
[2022-11-09] MEDS ORDERED: Senokot-S Tablet PO PRN (12:32)
[2022-11-09] MEDS ORDERED: MAALOX ES 30 ML UNIT DOSE PO PRN (12:32)
[2022-11-09] MEDS ORDERED: Zofran 4 MG/2 ML VIAL IV PRN (12:32)
[2022-11-09] MEDS: TYLENOL 325 MG PO PRN ×2 (13:42→19:27)
[2022-11-09] MEDS ORDERED: ONDANSETRON 8 MG PO PRN (16:23)
[2022-11-09] MEDS ORDERED: VOLTAREN 50 MG PO PRN (16:23)
[2022-11-09] MEDS ORDERED: ZOFRAN ODT 4 MG PO PRN (16:26)
[2022-11-09] MEDS ORDERED: MEDICATION INTERVENTION MC SCH (16:45)
[2022-11-09] MEDS ORDERED: Desyrel 150 MG PO SCH (22:00)
[2022-11-09] MEDS ORDERED: NON-FORMULARY ITEM (Omeprazole [Omeprazole] 40 MG Capsule.Dr) PO SCH (22:00)
[2022-11-09] MEDS ORDERED: Protonix 40MG Tablet PO SCH (22:00)
[2022-11-09] MEDS ORDERED: TRAZODONE HCL 300 MG PO SCH (22:00)
[2022-11-10 05:33] LABS: Risk Ratio 3.9
[2022-11-10 07:12] VITALS: BP 118/56; PULSE 58; O2SAT 97
[2022-11-10] MEDS ORDERED: NON-FORMULARY ITEM (Aspirin [Aspirin] 81 MG Tablet) PO SCH (10:00)
[2022-11-10] MEDS ORDERED: NON-FORMULARY ITEM (Diltiazem Hcl [Diltiazem 24hr Er] 240 MG Cap.Sa.24h) PO SCH (10:00)
[2022-11-10] MEDS ORDERED: DEXTROAMPHETAMINE PO SCH (10:00)
[2022-11-10] MEDS ORDERED: LOSARTAN PO SCH (10:00)
[2022-11-10] MEDS ORDERED: Cozaar 50 MG PO SCH (10:00)
[2022-11-10] MEDS ORDERED: Cardizem CD PO SCH (10:00)
[2022-11-10] MEDS ORDERED: AMPHETAMINE PO SCH (10:00)
[2022-11-10] MEDS ORDERED: hydroDIURIL 25 MG PO SCH (10:00)
[2022-11-10] MEDS ORDERED: ECOTRIN 81 MG PO SCH (10:00)
[2022-11-10] MEDS ORDERED: FLUZONE QUAD 2022-2023 SYRINGE IM ONE (10:00)
[2022-11-10] MEDS ORDERED: HYDROCHLOROTHIAZIDE PO SCH (10:00)
--- NOTE | 2022-11-23 21:16 | PCM.SSS ---
History of Present Illness - Chief Complaint Chief Complaint: Heart palpitations, dizziness Date: 11/10/22 History of Present Illness: Patient is a 57-year-old female presents emergency department for evaluation of heart palpitations and dizziness. Symptoms started while she was at work. Patient states symptoms started for the very first time approximately 6 to 8 we eks ago. Symptoms resolved and then reoccurred. No syncope. No associated chest pain. No nausea vomiting or diaphoresis. Patient had a quadruple bypass approximately 20 years ago. 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 Patient states her primary care doctor wants her to have a stress test however patient states her insurance will not cover it. Patient does not know her cholesterol level. Patient does not recall the last time it was tested however patient does have a history of hypertension and is taking her hypertensive medications. Patient has a sedentary job. Patient voices no other complaints or concerns at this time - Review of Systems Constitutional: No Fever, No Chills Eyes: No Symptoms Ears, Nose, & Throat: No Symptoms Respiratory: No Cough, No Short Of Breath Cardiac: Palpitations, No Chest Pain, No Edema, No Syncope Abdominal/Gastrointestinal: No Abdominal Pain, No Nausea, No Vomiting, No Diarrhea Genitourinary Symptoms: No Dysuria Musculoskeletal: No Back Pain, No Neck Pain Skin: No Rash Neurological: Dizziness, No Focal Weakness, No Sensory Changes Psychological: No Symptoms Endocrine: No Symptoms Hematologic/Lymphatic: No Symptoms Immunological/Allergic: No Symptoms Medications & Allergies Home Medications: Home Medication List Aspirin 81 mg PO DAILY 02/16/15 [History Confirmed 11/09/22] Trazodone HCl 300 mg PO HS 02/21/19 [History Confirmed 11/09/22] Omeprazole 40 mg PO HS 11/24/19 [History Confirmed 11/09/22] Diclofenac Sodium 50 mg PO TID PRN 7 Days #20 tab 12/11/21 [Rx Confirmed 11/09/22] Dextroamphetamine/Amphetamine [Adderall Xr 30 mg Capsule] 30 mg PO DAILY 11/09/22 [History Confirmed 11/09/22] Diltiazem HCl [Diltiazem 24Hr ER] 240 mg PO DAILY 11/09/22 [History Confirmed 11/09/22] Losartan/Hydrochlorothiazide [Hyzaar 50-12.5 Tablet] 1 tablet PO DAILY 11/09/22 [History Confirmed 11/09/22] Ondansetron [Ondansetron Odt] 8 mg PO Q8H PRN 11/09/22 [History Confirmed 11/09/22] Buspirone HCl 5 mg [Buspar 5 mg] 10 mg PO BID 30 Days #60 tablet 11/10/22 [Rx] Ezetimibe 10 mg [Zetia 10 MG] 10 mg PO DAILY #90 tab 11/10/22 [Rx] Allergies/Adverse Reactions: Allergies Allergy/AdvReac Type Severity Reaction Status Date / Time hydrocodone bitartrate Allergy Mild Itching Verified 11/09/22 10:35 [From Vicodin] oxycodone [Oxycodone] Allergy Mild Itching Verified 11/09/22 10:35 Sulfa (Sulfonamide Allergy Mild Hives Verified 11/09/22 10:35 Antibiotics) [Sulfa(Sulfonamide Antibiotics)] silk AdvReac Intermediate Blisters Verified 11/09/22 10:35 codeine AdvReac Mild Itching Verified 11/09/22 10:35 meperidine HCl [From Demerol] AdvReac Mild Vomiting Verified 11/09/22 10:35 - Past Medical History Past Medical History: Yes Neurological History: No Pertinent History ENT History: No Pertinent History Cardiac History: Coronary Artery Disease, High Cholesterol, Hypertension Respiratory History: No Pertinent History Endocrine Medical History: No Pertinent History Musculoskelatal History: Osteoarthritis, Other GI Medical History: GERD, Gallbladder Disease, GI Bleed History: Renal Disease, Other Pyscho-Social History: Anxiety, Depression Reproductive Disorders: Abnormal Uterine Bleeding, Endometriosis Comment: 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 BILATERAL KNEE LATERAL RELEASES 15 YEARS AGO. HYSTERECTOMY. GALL BLADDER. GOUT - Past Surgical History Past Surgical History: Yes Neuro Surgical History: No Pertinent History Cardiac History: CABG, Cardiac Catheterization Respiratory Surgery: No Pertinent History GI Surgical History: Cholecystectomy Genitourinary Surgical Hx: Kidney Surgery Musculskeletal Surgical Hx: Other Female Surgical History: Hysterectomy Other Surgical History: knee muscle lateral release dwaine , kidney stone removal x 7, hernia repair - Social History Smoking Status: Never smoker Exposure to second hand smoke: No Alcohol: None Drug Use: none Significant Family History: heart disease, hypertension - Physical Exam General Appearance: no apparent distress, alert Neurologic Exam: alert, oriented x 3, cooperative, normal mood/affect, nml cerebellar function, nml station & gait, sensation nml, No motor deficits Eye Exam: PERRL/EOMI, eyes nml inspection Ears, Nose, Throat Exam: normal ENT inspection, TMs normal, pharynx normal, moist mucous membranes Neck Exam: normal inspection, non-tender, supple, full range of motion Respiratory Exam: normal breath sounds, lungs clear, No respiratory distress Cardiovascular Exam: regular rate/rhythm, normal heart sounds, normal peripheral pulses Gastrointestinal/Abdomen Exam: soft, normal bowel sounds, No tenderness, No mass Back Exam: normal inspection, normal range of motion, No CVA tenderness, No vertebral tenderness Extremity Exam: normal inspection, normal range of motion, pelvis stable Skin Exam: normal color, warm, dry, No rash Lymphatic Exam: No adenopathy Assessment/Plan (1) Anxiety Status: Acute Code(s): F41.9 - ANXIETY DISORDER, UNSPECIFIED (2) Abnormal EKG Status: Acute Code(s): R94.31 - ABNORMAL ELECTROCARDIOGRAM [ECG] [EKG] (3) Dizziness Status: Acute Code(s): R42 - DIZZINESS AND GIDDINESS (4) Heart palpitations Status: Acute Code(s): R00.2 - PALPITATIONS Hospital Summary - Hospital Course Hospital Course: Pt. admitted and work-up negative. Pt. notes increased anxiety and after this was treated she notes symptoms resolved, pt. notes feeling much better and ready to go home with appropriate treatment of her anxiety. Bradycardia resolved with stopping the beta guillermo. - Vitals & Intake/Output Vital Signs: Vital Signs Temperature 97.9 F 11/10/22 07:11 Pulse Rate 58 L 11/10/22 07:11 Respiratory Rate 16 11/10/22 07:11 Blood Pressure 118/56 11/10/22 07:11 O2 Sat by Pulse Oximetry 97 11/10/22 07:11 - Lab Result Diagrams: 11/09/22 11:08 11/09/22 11:08 - Procedures and Test Procedures and Tests throughout Hospitalization: Therapy Orders & Screens 11/09/22 12:32 EKG Q8HX2,QAMX3,PRN Comment: 11/09/22 19:40 EKG ONCE Comment: Diagnosis: Heart palpitations, dizziness 11/10/22 05:00 EKG ONCE Comment: Diagnosis: Heart palpitations, dizziness 11/10/22 09:09 Sleep Study With 4 or More Par ONCE Comment: Reason For Exam: [place], bradycardia, obesity Diagnosis: Heart palpitations, dizziness 11/10/22 09:52 Bardy 3-7 Day Holter ONCE Comment: Diagnosis: Heart palpitations, dizziness 11/11/22 05:00 EKG ONCE Comment: Diagnosis: Heart palpitations, dizziness 11/12/22 05:00 EKG ONCE Comment: Diagnosis: Heart palpitations, dizziness - Discharge Discharge Date: 11/10/22 Disposition: Home, Self-Care Condition: Stable Prescriptions: New Buspirone HCl 5 mg [Buspar 5 mg] 10 mg PO BID 30 Days #60 tablet Ezetimibe 10 mg [Zetia 10 MG] 10 mg PO DAILY #90 tab Continue Aspirin 81 mg PO DAILY Trazodone HCl 300 mg PO HS Omeprazole 40 mg PO HS Diclofenac Sodium 50 mg PO TID PRN 7 Days #20 tab PRN Reason: Pain Ondansetron [Ondansetron Odt] 8 mg PO Q8H PRN PRN Reason: Nausea Losartan/Hydrochlorothiazide [Hyzaar 50-12.5 Tablet] 1 tablet PO DAILY Diltiazem HCl [Diltiazem 24Hr ER] 240 mg PO DAILY Dextroamphetamine/Amphetamine [Adderall Xr 30 mg Capsule] 30 mg PO DAILY Discontinued Propranolol HCl [Propranolol HCl ER] 60 mg PO DAILY Outpatient Orders: Holter Monitor Facility: [facility], Location: RESPIRATORY THERAPY Sleep Study Facility: [facility], Location: RESPIRATORY THERAPY Instructions: Bradycardia (DC) Additional Instructions: TAKE YOUR TRAZADONE PRIOR TO SLEEP STUDY. Follow up with: REED CAM MD [Primary Care Provider] - 11/18/22 2:45 pm
== END 2022-11-10 09:50 | disposition home or self-care (01) ==
LOC: ED 10:29 → UNDOADMOB 12:24 → MED SURG 12:24
PROVIDERS: ADMIT Family Medicine; ATTEND Family Medicine
DX: F41.9 Anxiety disorder, unspecified (principal); R94.31 Abnormal electrocardiogram [ECG] [EKG]; R42 Dizziness and giddiness; R00.2 Palpitations; I10 Essential (primary) hypertension; E78.5 Hyperlipidemia, unspecified; I25.10 Atherosclerotic heart disease of native coronary artery without angina pectoris; Z79.899 Other long term (current) drug therapy; Z20.828 Contact with and (suspected) exposure to other viral communicable diseases; Z95.1 Presence of aortocoronary bypass graft
CPT/HCPCS: 0241U; 36000; 36415; 71045; 80053; 80061; 83721; 83735; 84484; 85025; 93005; 93041; 93242; 93268; 94760; 99285; G0008; G0378; 90686; A9270-GY

== ENCOUNTER 2023-01-19 09:12 | Emergency (ER) | payer OTHER ==
[2023-01-19] MEDS ORDERED: BABY ASPIRIN 81 MG CHEW PO ONE (09:44)
[2023-01-19 09:58] VITALS: BP 191/78; PULSE 55; O2SAT 97
[2023-01-19 10:24] LABS: Absolute Neutrophil Ct (ANC) 5.17 x10^3/uL (1.4-6.9); BASOPHIL % 0.7 % (0.0-0.4); Basophil (Absolute #) 0.06 x10^3/uL (0-0.4); Eosinophil % 1.9 % (0.00-5.0); Eosinophil (Absolute #) 0.16 x10^3/uL (0-0.5); Hematocrit 36.7 % (35-47); IMMATURE GRAN # 0.02 x10^3u/L (0.00-0.03); IMMATURE GRAN % 0.2 % (0.00-0.4); Lymphocyte (Absolute #) 2.06 x10^3/uL (1.0-4.6); Lymphocytes % 24.9 % (24.0-44.0); Mean Cell Volume 74.4 fL (78-100); Mean Corpuscular Hemoglobin 22.3 pg (26-32); Mean Platelet Volume 9.8 fL (7.5-11.0); Monocyte (Absolute #) 0.79 x10^3/uL (0.0-1.3); Monocytes % 9.6 % (0.0-12.0); Neutrophil % 62.7 % (36.0-66.0); Platelet Count 442 x10^3/uL (150-450); Red Blood Count 4.93 x10^6/uL (4.1-5.4); White Blood Count 8.3 x10^3/uL (4.0-10.5)
--- NOTE | 2023-01-19 10:40 | ERPHSYRPT ---
- History of Present Illness Time Seen by Provider: 01/19/23 09:20 Source: patient Exam Limitations: no limitations Patient Subjective Stated Complaint: Pt c/o of palpatations and low heart rate since last night and she does have a cardiac history Triage Nursing Assessment: Pt brought self to the ER, hypertensive, bradycardic, denies pain, hx of a CABG in 2001, pt states that her heart rate usually runs in the 70's and it was running in the low 60's prior to coming and now it's in the low 50's and high 40's, pt reports being really tired, no edema, no difficulty breathing, pulses normal, cap refill normal, doesn't appear to be in any distre ss Physician History: Patient is here with palpitations since last night. No falls or other trauma. No fever no chills. No chest pain, shortness of breath. No other symptoms. Patient states it felt like she was having an abnormal heart rate. States that she has felt slightly more tired. Allergies/Adverse Reactions: hydrocodone bitartrate [From Vicodin] Allergy (Mild, Verified 11/09/22 10:35) Itching oxycodone [Oxycodone] Allergy (Mild, Verified 11/09/22 10:35) Itching Sulfa (Sulfonamide Antibiotics) [Sulfa(Sulfonamide Antibiotics)] Allergy (Mild, Verified 11/09/22 10:35) Hives hydrocodone Allergy (Verified 01/19/23 09:59) morphine Allergy (Verified 01/19/23 10:00) silk Adverse Reaction (Intermediate, Verified 11/09/22 10:35) Blisters Silk surgical tape codeine Adverse Reaction (Mild, Verified 11/09/22 10:35) Itching meperidine HCl [From Demerol] Adverse Reaction (Mild, Verified 11/09/22 10:35) Vomiting Home Medications: Aspirin 81 mg PO DAILY 02/16/15 [History] Trazodone HCl 300 mg PO HS 02/21/19 [History] Dextroamphetamine/Amphetamine [Adderall Xr 30 mg Capsule] 30 mg PO DAILY [History] Diltiazem HCl [Diltiazem 24Hr ER] 240 mg PO DAILY 11/09/22 [History] Losartan/Hydrochlorothiazide [Hyzaar 50-12.5 Tablet] 1 tablet PO DAILY 11/09/22 [History] Hx Tetanus, Diphtheria Vaccination/Date Given: No Hx Influenza Vaccination/Date Given: Yes Hx Pneumococcal Vaccination/Date Given: Yes Travel Risk - International Travel Have you traveled outside of the country in past 3 weeks: No - Coronavirus Screening Are you exhibiting any of the following symptoms?: No Close contact with a COVID-19 positive Pt in past 14-21 Days: No - Vaccine Status Have you recieved a Covid-19 vaccination: Yes Palliative Medicine Physician: Moderna - Vaccination Dates Date of 2cond Vaccination (if applicable): 12/18/2020 - Review of Systems Constitutional: No Fever, No Chills Eyes: No Symptoms Ears, Nose, & Throat: No Symptoms Respiratory: No Cough, No Dyspnea Cardiac: No Chest Pain, No Edema, No Syncope Abdominal/Gastrointestinal: No Abdominal Pain, No Nausea, No Vomiting, No Diarrhea Genitourinary Symptoms: No Dysuria Musculoskeletal: No Back Pain, No Neck Pain Skin: No Rash Neurological: No Dizziness, No Focal Weakness, No Sensory Changes Psychological: No Symptoms Endocrine: No Symptoms All Other Systems: Reviewed and Negative - Past Medical History Pertinent Past Medical History: Yes Neurological History: No Pertinent History ENT History: No Pertinent History Cardiac History: Coronary Artery Disease, High Cholesterol, Hypertension Respiratory History: No Pertinent History Endocrine Medical History: No Pertinent History Musculoskeletal History: Osteoarthritis, Other GI Medical History: GERD, Gallbladder Disease, GI Bleed History: Renal Disease, Other Psycho-Social History: Anxiety, Depression Female Reproductive Disorders: Abnormal Uterine Bleeding, Endometriosis Other Medical History: 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 BILATERAL KNEE LATERAL RELEASES 15 YEARS AGO. HYSTERECTOMY. GALL BLADDER. GOUT - Past Surgical History Past Surgical History: Yes Neuro Surgical History: No Pertinent History Cardiac: CABG, Cardiac Catheterization Respiratory: No Pertinent History Gastrointestinal: Cholecystectomy Genitourinary: Kidney Surgery Musculoskeletal: Other Female Surgical History: Hysterectomy Other Surgical History: knee muscle lateral release dwaine , kidney stone removal x 7, hernia repair - Social History Smoking Status: Never smoker Exposure to second hand smoke: No Drug Use: none Patient Lives Alone: No Significant Family History: heart disease, hypertension - Nursing Vital Signs Nursing Vital Signs: Initial Vital Signs Temperature 96.7 F 01/19/23 09:32 Pulse Rate 55 L 01/19/23 09:32 Respiratory Rate 14 01/19/23 09:32 Blood Pressure 191/78 01/19/23 09:32 O2 Sat by Pulse Oximetry 97 01/19/23 09:32 Pain Scale Pain Intensity 0 - Physical Exam General Appearance: no apparent distress, alert Eye Exam: PERRL/EOMI, eyes nml inspection Ears, Nose, Throat Exam: normal ENT inspection, TMs normal, pharynx normal, moist mucous membranes Neck Exam: normal inspection, non-tender, supple, full range of motion Respiratory Exam: normal breath sounds, lungs clear, No respiratory distress Cardiovascular Exam: regular rate/rhythm, normal heart sounds, normal peripheral pulses Gastrointestinal/Abdomen Exam: soft, normal bowel sounds, No tenderness, No mass Back Exam: normal inspection, normal range of motion, No CVA tenderness, No vertebral tenderness Extremity Exam: normal inspection, normal range of motion, pelvis stable Neurologic Exam: alert, oriented x 3, cooperative, normal mood/affect, nml cerebellar function, nml station & gait, sensation nml, No motor deficits Skin Exam: normal color, warm, dry, No rash Lymphatic Exam: No adenopathy SpO2: 97 - Course Nursing assessment & vital signs reviewed: Yes EKG Interpreted by Me: Sinus Rhythm (Sinus rhythm, rate of 50. No obvious ST changes, no heart block) Ordered Tests: Active Orders 24 hr Category Date Time Status Telecommunications Network Engineer STAT Care 01/19/23 09:45 Active EKG-ER Only STAT Care 01/19/23 09:44 Active IV Insertion STAT Care 01/19/23 09:44 Active CHEST 2 VIEWS (PA AND LAT) Stat Exams 01/19/23 09:44 Taken CBC W DIFF Stat Lab 01/19/23 10:25 Completed CMP Stat Lab 01/19/23 10:25 Completed D-DIMER QUANTITATIVE Stat Lab 01/19/23 10:25 Completed LIPASE Stat Lab 01/19/23 10:25 Completed TROPONIN Q4H Lab 01/19/23 10:25 Completed TROPONIN Q4H Lab 01/19/23 13:45 Ordered TROPONIN Q4H Lab 01/19/23 17:45 Ordered Medication Summary Discontinued Medications Generic Name Dose Route Start Last Admin Trade Name Freq PRN Reason Stop Dose Admin Aspirin 324 mg 01/19/23 09:44 01/19/23 10:19 Aspirin 81 Mg Tab.Chew PO 01/19/23 09:45 324 mg STAT ONE Administration Lab/Rad Data: Laboratory Result Diagrams 01/19/23 10:25 01/19/23 10:25 Laboratory Results 01/19/23 01/19/23 01/19/23 Range/Units 10:25 10:25 10:25 WBC (4.0-10.5) x10^3/uL RBC (4.1-5.4) x10^6/uL Hgb (12.0-16.0) g/dL Hct (35-47) % MCV (78-100) fL MCH (26-32) pg MCHC (32-36) g/dL RDW (11.5-14.0) % Plt Count (150-450) x10^3/uL MPV (7.5-11.0) fL Gran % (36.0-66.0) % Immature Gran % (Auto) (0.00-0.4) % Nucleat RBC Rel Count (0.00-0.1) % Eos # (Auto) (0-0.5) x10^3/uL Immature Gran # (Auto) (0.00-0.03) x10^3u/L Absolute Lymphs (auto) (1.0-4.6) x10^3/uL Absolute Monos (auto) (0.0-1.3) x10^3/uL Absolute Nucleated RBC (0.00-0.01) x10^3u/L Lymphocytes % (24.0-44.0) % Monocytes % (0.0-12.0) % Eosinophils % (0.00-5.0) % Basophils % (0.0-0.4) % Absolute Granulocytes (1.4-6.9) x10^3/uL Basophils # (0-0.4) x10^3/uL D-Dimer 0.42 (0.0-0.50) mg/L Sodium 140 (137-145) mmol/L Potassium 3.8 (3.5-5.1) mmol/L Chloride 102 (98-107) mmol/L Carbon Dioxide 26 (22-30) mmol/L Anion Gap 16.2 H (5-15) MEQ/L BUN 17 (7-17) mg/dL Creatinine 0.84 (0.52-1.04) mg/dL Estimated GFR > 60.0 ML/MIN Glucose 188 H (74-106) mg/dL Calcium 9.3 (8.4-10.2) mg/dL Total Bilirubin 0.60 (0.2-1.3) mg/dL AST 38 H (14-36) U/L ALT 27 (0-35) U/L Alkaline Phosphatase 97 (38-126) U/L Troponin I < 0.012 (0.000-0.034) ng/mL Serum Total Protein 8.0 (6.3-8.2) g/dL Albumin 4.4 (3.5-5.0) g/dL Lipase 90 (23-300) U/L 01/19/23 Range/Units 10:25 WBC 8.3 (4.0-10.5) x10^3/uL RBC 4.93 (4.1-5.4) x10^6/uL Hgb 11.0 L (12.0-16.0) g/dL Hct 36.7 (35-47) % MCV 74.4 L (78-100) fL MCH 22.3 L (26-32) pg MCHC 30.0 L (32-36) g/dL RDW 17.0 H (11.5-14.0) % Plt Count 442 (150-450) x10^3/uL MPV 9.8 (7.5-11.0) fL Gran % 62.7 (36.0-66.0) % Immature Gran % (Auto) 0.2 (0.00-0.4) % Nucleat RBC Rel Count 0.0 (0.00-0.1) % Eos # (Auto) 0.16 (0-0.5) x10^3/uL Immature Gran # (Auto) 0.02 (0.00-0.03) x10^3u/L Absolute Lymphs (auto) 2.06 (1.0-4.6) x10^3/uL Absolute Monos (auto) 0.79 (0.0-1.3) x10^3/uL Absolute Nucleated RBC 0.00 (0.00-0.01) x10^3u/L Lymphocytes % 24.9 (24.0-44.0) % Monocytes % 9.6 (0.0-12.0) % Eosinophils % 1.9 (0.00-5.0) % Basophils % 0.7 (0.0-0.4) % Absolute Granulocytes 5.17 (1.4-6.9) x10^3/uL Basophils # 0.06 (0-0.4) x10^3/uL D-Dimer (0.0-0.50) mg/L Sodium (137-145) mmol/L Potassium (3.5-5.1) mmol/L Chloride (98-107) mmol/L Carbon Dioxide (22-30) mmol/L Anion Gap (5-15) MEQ/L BUN (7-17) mg/dL Creatinine (0.52-1.04) mg/dL Estimated GFR ML/MIN Glucose (74-106) mg/dL Calcium (8.4-10.2) mg/dL Total Bilirubin (0.2-1.3) mg/dL AST (14-36) U/L ALT (0-35) U/L Alkaline Phosphatase (38-126) U/L Troponin I (0.000-0.034) ng/mL Serum Total Protein (6.3-8.2) g/dL Albumin (3.5-5.0) g/dL Lipase (23-300) U/L - Progress Progress: improved Progress Note: 01/19/23 10:39 differential diagnosis includes: PNA, STEMI, NSTEMI, other infection, musculoskeletal pain, pneumothorax - We'll obtain basic labs, fluids, EKG, troponin, chest x-ray - I feel comfortable with one time negative troponin given symptoms have improved and started greater then 6 hours ago. - EKG shows no ST changes - my read. See full read below. - O2 saturations consistently greater than 95%. - CXR shows no pneumonia, pneumothorax - my read 01/19/23 10:41 Previous report PROCEDURE: Extended Holter monitor report. REASON FOR EXAMINATION: Bradycardia. DESCRIPTION OF PROCEDURE: The patient underwent extended Holter monitor for about 7 days starting on 11/10/2022. The patient was in sinus rhythm predominan tly with average rate of 79 beats/minute. The maximum rate was 132 beats/minute on 11/16/2022 at 6:43 a.m. and the minimum rate was 47 beats/minute on 11/11/2022 at 3:06 a.m. There were frequent premature atrial ectopies seen, occasional atrial couplets and one 5 beat atrial run noted consistent with paroxysmal atrial tachycardia. There were rare premature ventricular ectopies without evidence of any ventricular tachyarrhythmia. There was one pause lasting for about 3 seconds noted on 11/16/2022 at 9:55 a.m. IMPRESSION: 1) SINUS RHYTHM WITH THE LOWEST RATE OF 47 BEATS/MINUTE ON 11/11/2022 AT 3:06 A.M. 2) FREQUENT PACS, OCCASIONAL ATRIAL COUPLETS AND ONE 5 BEAT ATRIAL RUN. 3) ONE 3 SECOND PAUSE NOTED. 4) RARE PVCS. 01/19/23 11:09 Patient's work-up is unremarkable as above. I was able to review extended Holter monitor as above. 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 She has not followed up with them for a while secondary to insuran ce issues. However she states she now has insurance. She will follow-up as described. Return here for new or changing symptoms. Medical Desision Making - External Record(s) Reviewed Records reviewed as a part of evaluation & management: Clinic - Social Determinants of Health Pt's dx & treatment plan are significantly limited by SDOH: financial hardships - Diagnostic Testing Diagnostic test were ordered, analyzed, and reviewed by me: Yes Radiological Interpretation: Reviewed by me - Risk of complications Minimal Risk: Minimal risk of morbidity - Departure Departure Disposition: Home Clinical Impression: Palpitations Condition: Stable Critical Care Time: No Referrals: REED CAM MD [Primary Care Provider] - Follow up/PCP as directed Instructions: Palpitations (DC)
[2023-01-19 10:46] LABS: ALBUMIN 4.4 g/dL (3.5-5.0); ALKALINE PHOSPHATASE 97 U/L (38-126); ANION GAP 16.2 MEQ/L (5-15); BLOOD UREA NITROGEN 17 mg/dL (7-17); CHLORIDE 102 mmol/L (98-107); Calcium 9.3 mg/dL (8.4-10.2); Carbon Dioxide 26 mmol/L (22-30); Creatinine 1 0.84 mg/dL (0.52-1.04); EST GLOMERULAR FILTRATION RATE > 60.0 ML/MIN; Glucose 188 mg/dL (74-106); LIPASE 90 U/L (23-300); Potassium 3.8 mmol/L (3.5-5.1); SGOT/AST 38 U/L (14-36); SGPT/ALT 27 U/L (0-35); SODIUM 140 mmol/L (137-145)
--- NOTE | 2023-01-20 00:20 | XRAY ---
CLINICAL HISTORY:palpatations COMPARISON:None; TECHNIQUES:X-ray of the chest, PA, and lateral views; FINDINGS: A radiographic examination of the chest demonstrates clear lungs. There is no evidence of any focal area of consolidation. Sternal cerclage and mediastinal metallic filomena. Prominent vascular markings on mid and lower bellamy bilaterally, more evident on the right side. Normal configuration of the mediastinum. The sj are normal in size and position. The cardiac size is normal. The tracheal lucency is centrally placed. The costophrenic and cardiophrenic angles are clear. The thoracic spine shows degenerative changes. IMPRESSION: Bilateral prominent vascular markings. These findings may correspond to mild cardiac overload. Clinical correlation is required. Electronically Signed by: Alexander Dumont MD. (01/19/2023 23:15:25 MACHINE CLERICAL VERIFIER)
== END 2023-01-19 11:29 | disposition home or self-care (01) ==
LOC: ED 09:12
DX: R00.2 Palpitations (principal); E78.5 Hyperlipidemia, unspecified; I10 Essential (primary) hypertension; Z79.899 Other long term (current) drug therapy; Z59.9 Problem related to housing and economic circumstances, unspecified
CPT/HCPCS: 36000; 36415; 71046; 80053; 83690; 84484; 85025; 85379; 93005; 93041; 99284; A9270-GY

== ENCOUNTER 2024-02-03 20:43 | Emergency (ER) | payer OTHER ==
[2024-02-03 21:07] VITALS: RESP 20; TEMP 97.7
--- NOTE | 2024-02-03 21:19 | ERPHSYRPT ---
- History of Present Illness Time Seen by Provider: 02/03/24 21:10 Source: patient Patient Subjective Stated Complaint: pt states swelling to rt side of face Triage Nursing Assessment: pt ambulated into the er; pt is axo x4; c/o swelling to rt side of face; pt states 1/10 pain to rt side of face; no redness or warmth to rt side of face; swelling present to rt side of face; no respiratory distress present; skin PDW; hypertensive Physician History: 58yo F presents w/ right sided neck swelling and pain that started roughly 4h [employer]. Pt reports she was at rest when she noticed the swelling. Pt reports some associated ear discomfort but denies hearing loss. Pt states the area is tender to touch, reports pain w/ chewing as well. Pt denies any recent dental procedures. Pt does report she bit her cheek recently but states it was not directly before the swelling started. Pt denies any fevers, SHANNON, vision changes, neck pain, difficulty swallowing, n/v. Timing/Duration: today Severity: mild Associated Symptoms: denies symptoms Allergies/Adverse Reactions: hydrocodone bitartrate [From Vicodin] Allergy (Mild, Verified 02/03/24 20:55) Itching oxycodone [Oxycodone] Allergy (Mild, Verified 02/03/24 20:55) Itching Sulfa (Sulfonamide Antibiotics) [Sulfa(Sulfonamide Antibiotics)] Allergy (Mild, Verified 02/03/24 20:55) Hives hydrocodone Allergy (Verified 02/03/24 20:55) morphine Allergy (Verified 02/03/24 20:55) silk Adverse Reaction (Intermediate, Verified 02/03/24 20:55) Blisters Silk surgical tape codeine Adverse Reaction (Mild, Verified 02/03/24 20:55) Itching meperidine HCl [From Demerol] Adverse Reaction (Mild, Verified 02/03/24 20:55) Vomiting Home Medications: Aspirin 81 mg PO DAILY 02/16/15 [History] Trazodone HCl 300 mg PO HS 02/21/19 [History] Losartan/Hydrochlorothiazide [Hyzaar 50-12.5 Tablet] 1 tablet PO DAILY 11/09/22 [History] dilTIAZem HCL [Diltiazem 24Hr ER] 240 mg PO DAILY 11/09/22 [History] Dextroamphetamine/Amphetamine [Adderall Xr 30 mg Capsule] 30 mg PO DAILY [History] Tirzepatide [Mounjaro] 5 mg SQ WEEKLY 02/03/24 [History] Hx Tetanus, Diphtheria Vaccination/Date Given: No Hx Influenza Vaccination/Date Given: Yes Hx Pneumococcal Vaccination/Date Given: Yes Immunizations Up to Date: No Travel Risk - International Travel Have you traveled outside of the country in past 3 weeks: No - Emerging Infectious Disease Are you exhibiting symptoms associated with any current EIDs: No - Review of Systems Constitutional: No Symptoms Ears, Nose, & Throat: Ear Pain, Mouth Pain, Mouth Swelling, No Ear Discharge, No Hearing Changes, No Tinnitus, No Nose Congestion, No Nose Discharge, No Throat Pain, No Throat Swelling, No Snoring, No Stridor Respiratory: No Symptoms Cardiac: No Symptoms Abdominal/Gastrointestinal: No Symptoms - Past Medical History Pertinent Past Medical History: Yes Neurological History: No Pertinent History ENT History: No Pertinent History Cardiac History: Coronary Artery Disease, High Cholesterol, Hypertension Respiratory History: No Pertinent History Endocrine Medical History: No Pertinent History Musculoskeletal History: Osteoarthritis, Other GI Medical History: GERD, Gallbladder Disease, GI Bleed History: Renal Disease, Other Psycho-Social History: Anxiety, Depression Female Reproductive Disorders: Abnormal Uterine Bleeding, Endometriosis Other Medical History: 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 BILATERAL KNEE LATERAL RELEASES 15 YEARS AGO. HYSTERECTOMY. GALL BLADDER. GOUT - Past Surgical History Past Surgical History: Yes Neuro Surgical History: No Pertinent History Cardiac: CABG, Cardiac Catheterization Respiratory: No Pertinent History Gastrointestinal: Cholecystectomy Genitourinary: Kidney Surgery Musculoskeletal: Other Female Surgical History: Hysterectomy Other Surgical History: knee muscle lateral release dwaine , kidney stone removal x 7, hernia repair Significant Family History: heart disease, hypertension - Social History Smoking Status: Never smoker Exposure to second hand smoke: No Drug Use: none Patient Lives Alone: No - Nursing Vital Signs Nursing Vital Signs: Initial Vital Signs Temperature 97.7 F 02/03/24 20:58 Pulse Rate 74 02/03/24 20:58 Respiratory Rate 20 02/03/24 20:58 Blood Pressure 164/83 02/03/24 20:58 O2 Sat by Pulse Oximetry 97 02/03/24 20:58 Pain Scale Pain Intensity 1 - Physical Exam General Appearance: no apparent distress, alert Eye Exam: PERRL/EOMI, eyes nml inspection Ears, Nose, Throat Exam: TMs normal, pharynx normal, moist mucous membranes, other (small ulceration on inside of the left cheek mucosa) Neck Exam: other (area of edema near angle of right mandible measuring roughly [id number], mobile, non-fluctuant, soft, TTP, no erythema, no streaking, no discoloration) Respiratory Exam: normal breath sounds, lungs clear, airway intact, No chest tenderness, No respiratory distress Cardiovascular Exam: regular rate/rhythm, normal heart sounds Neurologic Exam: alert, oriented x 3, cooperative, 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, normal mood/affect, nml cerebellar function, sensation nml, other (no pronator drift), No motor deficits, No disoriented, No confusion, No intoxicated appearance, No motor weakness, No facial droop, No slurred speech, No aphasia SpO2 Interpretation: normal SpO2: 97 O2 Delivery: Room Air Ordered Tests: Active Orders 24 hr Category Date Time Status CT ANGIOGRAPHY NECK [CT] Stat Exams 02/04/24 01:34 Ordered CTA HEAD W AND/OR WO CONTRAST [CT] Stat Exams 02/03/24 23:48 Taken FACIAL BONES WO CONTRAST [CT] Stat Exams 02/03/24 21:16 Completed HEAD WITHOUT CONTRAST [CT] Stat Exams 02/03/24 21:29 Completed NECK WITH CONTRAST [CT] Stat Exams 02/03/24 21:15 Completed CBC W DIFF Stat Lab 02/03/24 21:50 Completed CMP Stat Lab 02/03/24 21:50 Completed Medication Summary Discontinued Medications Generic Name Dose Route Start Last Admin Trade Name Freq PRN Reason Stop Dose Admin Sodium Chloride 500 mls @ 500 mls/hr 02/04/24 00:31 02/04/24 01:38 Sodium Chloride 0.9% 500 Ml IV 02/04/24 01:30 Infused .Q1H ONE Infusion Sodium Chloride Confirm 02/04/24 00:31 Sodium Chloride 0.9% 500 Ml Administered 02/04/24 00:32 Dose 500 mls @ ud IV .STK-MED ONE Sodium Chloride 500 mls @ 500 mls/hr 02/04/24 01:25 02/04/24 02:55 Sodium Chloride 0.9% 500 Ml IV 02/04/24 02:24 Infused .Q1H ONE Infusion Sodium Chloride Confirm 02/04/24 01:30 Sodium Chloride 0.9% 500 Ml Administered 02/04/24 01:31 Dose 500 mls @ ud IV .STK-MED ONE Lab/Rad Data: Laboratory Result Diagrams 02/03/24 21:50 02/03/24 21:50 Laboratory Results 02/03/24 02/03/24 Range/Units 21:50 21:50 WBC 10.6 H (4.0-10.5) x10^3/uL RBC 4.75 (4.1-5.4) x10^6/uL Hgb 9.7 L (12.0-16.0) g/dL Hct 32.6 L (35-47) % MCV 68.6 L (78-100) fL MCH 20.4 L (26-32) pg MCHC 29.8 L (32-36) g/dL RDW 18.1 H (11.5-14.0) % Plt Count 473 H (150-450) x10^3/uL MPV 9.4 (7.5-11.0) fL Gran % 68.9 H (36.0-66.0) % Immature Gran % (Auto) 0.3 (0.00-0.4) % Nucleat RBC Rel Count 0.0 (0.00-0.1) % Eos # (Auto) 0.13 (0-0.5) x10^3/uL Immature Gran # (Auto) 0.03 (0.00-0.03) x10^3u/L Absolute Lymphs (auto) 2.18 (1.0-4.6) x10^3/uL Absolute Monos (auto) 0.91 (0.0-1.3) x10^3/uL Absolute Nucleated RBC 0.00 (0.00-0.01) x10^3u/L Lymphocytes % 20.7 L (24.0-44.0) % Monocytes % 8.6 (0.0-12.0) % Eosinophils % 1.2 (0.00-5.0) % Basophils % 0.3 (0.0-0.4) % Absolute Granulocytes 7.27 H (1.4-6.9) x10^3/uL Basophils # 0.03 (0-0.4) x10^3/uL Sodium 141 (135-145) mmol/L Potassium 3.6 (3.5-5.1) mmol/L Chloride 105 (98-107) mmol/L Carbon Dioxide 26 (22-30) mmol/L Anion Gap 14.9 (5-15) MEQ/L BUN 32 H (7-17) mg/dL Creatinine 1.15 H (0.52-1.04) mg/dL Estimated GFR 54.9 ML/MIN Glucose 103 (74-106) mg/dL Calcium 10.1 (8.4-10.2) mg/dL Total Bilirubin 0.40 (0.2-1.3) mg/dL AST 24 (14-36) U/L ALT 20 (0-35) U/L Alkaline Phosphatase 84 (38-126) U/L Serum Total Protein 8.0 (6.3-8.2) g/dL Albumin 4.6 (3.5-5.0) g/dL - Progress Progress: re-examined Progress Note: 02/03/24 23:49 Pt called nurses station stating she was having new pain I presented to bedside - pt now complaining of SHANNON posterior to the right ear in the parietal region pt now showing signs of right sided facial droop, decreased ability to raise and lower right eyebrow pupils continue to be equal and reactive, EOMI still, mental status unchanged last known normal 23:45, neuro exam as documented prior up to this point tele-neuro consult ordered 02/03/24 23:58 CTA Head/neck ordered 02/04/24 00:32 Discussed pt case w/ tele-neurologist Dr Kimball- recommend completing CTA head, then obtaining MRI brain w/w/o contrast; 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 Bulky right parotid gland shows heterogeneous contrast enhancement, possibility of early acute parotitis needs to be considered. no obvious enhancing masses or marginally enhanicng fluid filled pockets formation. Recommended clinical correlation. 2. Right thyroid lobe hypodense nodules. advise sonographic correlation. CT face 02/04/24 01:12 1. The right parotid gland appears bulky with faint haziness in its parenchyma, possibility of early acute parotitis needs to be considered. Recommended clinical correlation. 2. intact maxillo-facial bones and mandible with no fractures. CT head w/o 02/04/24 01:13 No intra or extra-axial hematomas or parenchymal territorial hypodense areas suggestive of acute ischemic insult. Early changes of stroke may not be detected on a CT scan. If strong clinical suspicion of stroke then suggest MRI with diffusion-weighted imaging. Unremarkable non-enhanced CT study of the brain 02/04/24 02:56 I spoke w/ Dr Ch - hospitalist at [facility] regarding pt case, he is willing to accept for transfer plan to start unasyn for parotitis Counseled pt/family regarding: lab results, diagnosis, need for follow-up, rad results Medical Desision Making - Discussion of managment Care discussed with:: hospitalist Reviewed:: Test results, Need for additional workup Agreed on:: Treatment plan, decision to admit Will see patient: in hospital - Diagnostic Testing Diagnostic test were ordered, analyzed, and reviewed by me: Yes Radiological Interpretation: Reviewed by me - Risk of complications The pt has a high risk of morbidity or mortality based on: Decision regarding hospitilization or escalation of hosp level of care - Departure Departure Disposition: Transfer Clinical Impression: Facial droop, Parotitis, acute Condition: Stable Critical Care Time: Yes Critical Care Time(excluding separately billable procedures): Critical 30-74 mins Referrals: REED CAM MD [Primary Care Provider] - Follow up/PCP as directed
[2024-02-03 21:52] LABS: Absolute Neutrophil Ct (ANC) 7.27 x10^3/uL (1.4-6.9); BASOPHIL % 0.3 % (0.0-0.4); Basophil (Absolute #) 0.03 x10^3/uL (0-0.4); Eosinophil % 1.2 % (0.00-5.0); Eosinophil (Absolute #) 0.13 x10^3/uL (0-0.5); Hematocrit 32.6 % (35-47); Hemoglobin 9.7 g/dL (12.0-16.0); IMMATURE GRAN # 0.03 x10^3u/L (0.00-0.03); IMMATURE GRAN % 0.3 % (0.00-0.4); Lymphocyte (Absolute #) 2.18 x10^3/uL (1.0-4.6); Lymphocytes % 20.7 % (24.0-44.0); Mean Cell Volume 68.6 fL (78-100); Mean Corpuscular Hemoglobin 20.4 pg (26-32); Mean Corpuscular Hgb Concent. 29.8 g/dL (32-36); Mean Platelet Volume 9.4 fL (7.5-11.0); Monocyte (Absolute #) 0.91 x10^3/uL (0.0-1.3); Monocytes % 8.6 % (0.0-12.0); Neutrophil % 68.9 % (36.0-66.0); Platelet Count 473 x10^3/uL (150-450); Red Blood Count 4.75 x10^6/uL (4.1-5.4); Red Cell Distribution Width 18.1 % (11.5-14.0); White Blood Count 10.6 x10^3/uL (4.0-10.5)
[2024-02-03 22:03] LABS: ALBUMIN 4.6 g/dL (3.5-5.0); ANION GAP 14.9 MEQ/L (5-15); BILIRUBIN,TOTAL 0.4 mg/dL (0.2-1.3); Calcium 10.1 mg/dL (8.4-10.2); Creatinine 1 1.15 mg/dL (0.52-1.04); EST GLOMERULAR FILTRATION RATE 54.9 ML/MIN; Potassium 3.6 mmol/L (3.5-5.1)
--- NOTE | 2024-02-03 23:37 | XRAY ---
CLINICAL HISTORY: right ear pain COMPARISON: Prior CT head dated 08/08/2022 TECHNIQUE: Axial non-contrast CT scan of the brain was performed from the skull base to the high parietal region. One of the following dose reduction techniques were utilized for this exam: Automated exposure control, adjustment of the mA and/or kV according to patient size, use of iterative reconstruction FINDINGS: The cerebral parenchyma exhibits normal attenuation. Martin-white differentiation is well preserved. The ventricular system are unremarkable. prominent fronto-parietal cortical sulci. No midline shift was seen. The brainstem and cerebellum are normal in morphology and attenuation. No fracture was seen. left vertebral aretry dense atheromatous calcifications. normal appaerance of the petrous bones and mastodi ar cells. left maxillary antrum focal polypoid mucosal thickening/retention cyst. IMPRESSION: No intra or extra-axial hematomas or parenchymal territorial hypodense areas suggestive of acute ischemic insult. Early changes of stroke may not be detected on a CT scan. If strong clinical suspicion of stroke then suggest MRI with diffusion-weighted imaging. Unremarkable non-enhanced CT study of the brain. Electronically Signed by: Alexander Dumont MD. (02/03/2024 23:33:03 EDT)
[2024-02-04] MEDS ORDERED: Sodium Chloride 0.9% 500 ML 500 ML IV ONE ×2 (00:31→01:30)
[2024-02-04] MEDS: Sodium Chloride 0.9% 500 ML 500 ML IV ONE ×2 (00:32→01:32)
--- NOTE | 2024-02-04 00:55 | PCM.CONS ---
History of Present Illness - Reason for Consult Consulting Provider: HENRIETTA KIMBALL MD History of Present Illness: Consult Cover Page FROM: [facility], Call Back Number: [phone] SUBJECT: Consult Recommendations Date and Time of Report: 02/04/2024 12:52 AM ET Items Contained in this Document: Neurology Consult Note Consult Information Member Facility: [facility] Facility Consult ID: [id number] Facility Time Zone: ET Date and Time of Request: 02-03-2024 11:55 PM ET Requesting Clinician: Dr Culp Patient Name: BHUMIKA BERUMEN Date of : 1965 Gender: Female Patient identity was confirmed at the beginning of the consult with the patient/family/staff using two personal identifiers: Patient name and Reason for Consult Reason for Consult: Code Stroke TLKW less than 4.5 hours General Chief Complaint: R facial pain, swelling, weakness Patient Location and Admission Status: ED- Patient is not admitted Family Members and Medical Staff Present During Exam: spouse, RN History of Present Illness: This teleneurology consultation was performed via two-way video conferencing using HIPAA-compliant interactive video-audio telecommunications with the patient present. Name and were confirmed at the start of the interview. 58yo F with PMH of HTN, borderline diabetes, Barros's palsy, CAD s/p CABG, trigeminal neuralgia who presented to the ED with R facial pain, swelling, weakness. She states at 14:59 she was in her normal state and put a grape in her mouth then developed a "sparkly pain" inside the R side of her mouth which she describes as the feeling one gets when their foot is really asleep. She states around 17:30-18:00 she began to notice swelling, more pain, and hot feeling on the R side of her face as well as feeling like the R side of her face feeling droopy, heavy, tight, and like her muscles aren't cooperating. She states symptoms came on gradually. She states a little while ago she sat up and had bad pain behind her R ear. She states she has had Barros's palsy in the past but did not have pain associated with it. She also reports history of trigeminal neuralgia but does not recall which side it was on. She denies weakness, numbness, tingling in the extremities. She denies vision changes, speech changes, N/V. She denies recent fever, cough, diarrhea. She states she was started on mounjaro 8 weeks ago, no other recent medication changes. She denies new dizziness or imbalance, reports she is chronically a little off balance and clumsy. Dr. Culp states the patient did not appear to have difficulty lifting her eyebrow on his initial exam. Number of Documented HPI Elements: 4+ Medical History Other Medical History: HTN, borderline diabetes, Barros's palsy, CAD s/p CABG, trigeminal neuralgia Other Family History: DM, CO, thyroid disease Allergies Other Allergies: hydrocodone, oxycodone, sulfa, morphine Medications Anti-Coagulants: None Anti-Platelets: ASA 81 mg Other Medications: mounjaro, losartan, diltiazem, adderall Social History Alcohol Use: None Tobacco Use: None Vital Signs Temperature: Afebrile Blood Pressure (mmHg): 162/85 Heart Rate (bpm): 77 O2 Sat (%): 97 Date and Time: 02/04/2024 12:12:14 AM ET Review Of Systems General, Constitutional: See HPI Neurological: See HPI Respiratory: See HPI Gastrointestinal: See HPI Ophthalmology: See HPI NIH Stroke Scale NIH Stroke Scale Score: 1 1. Level of Consciousness: 0 : alert; keenly responsive. 1a. LOC Questions: 0 : Answers both questions correctly. 1b. LOC Commands: 0 : Performs both tasks correctly. 2. Best Gaze: 0 : Normal. 3. Visual: 0 : No visual loss. 4. Facial Palsy: 1 : Minor paralysis (flattened nasolabial fold, asymmetry on smiling). 5a. Motor Left Arm: 0 : No drift; limb holds 90 (or 45) degrees for full 10 seconds. 5b. Motor Right Arm : 0 : No drift; limb holds 90 (or 45) degrees for full 10 seconds. 6a. Motor Left Le : No drift; leg holds 30-degree position for full 5 seconds. 6b. Motor Right Le : No drift; leg holds 30-degree position for full 5 seconds. 7. Limb Ataxia: 0 : Absent. 8. Sensory: 0 : Normal; no sensory loss. 9. Best Language: 0 : No aphasia; normal. 10. Dysarthria: 0 : Normal. 11. Extinction and inattention (formerly Neglect) : 0 : No abnormality. NIHSS Entry Time: 02/04/2024 12:35:26 AM ET Exam Exam: Alert. Oriented to person, place, time, age. Normal affect. Normal work of breathing. EOMI. Right upper and lower facial weakness (weakness with R eyebrow raising, smiling, cheek puffing). Speech is clear and language is normal. No drift in extremities x4. Sensation symmetric in UEs and LEs, reports pain to touch in R side of face. No dysmetria with finger to nose or heel to john bilaterally. Clinician assisting with exam: RN Labs and Imaging Other CT Findings : CT- no hemorrhage or large territory infarct Assessment and Recommendations Assessment: 58yo F with PMH of HTN, borderline diabetes, Barros's palsy, CAD s/p CABG, trigeminal neuralgia who presented to the ED with R facial pain, swelling, weakness. On exam she has R upper and lower facial weakness most consistent with Barros's palsy. WINDOW CLERK lesion should however be ruled out. Recommend further evaluation as below Recommendations: -CTA is ordered, follow up results -MRI brain w/wo contrast -Examine ear for vesicles -If Barros's palsy is confirmed, treat with valacyclovir 1g tid x1 week and prednisone 60mg qd x1 week. Advise patient to monitor BG closely while on prednisone -Artificial tears, eye protection -Frequent neuro checks and vital signs -All recommendations unless contraindicated -Inpatient neurology or teleneurology follow up. Please reconsult our teleneurology service, if in-house neurology not available, with additional questions, concerns, or changes in this patients neurological status. Disposition: Disposition recommendations pending results of additional workup or management Diagnosis Impression: Other Diagnosis Other: suspected Barros's palsy Case discussed with: Dr. Culp Inclusion Criteria Time Last Known Well: 02-03-2024 05:30 PM ET Thrombolysis Recommendation Thrombolysis recommended?: No Reason Thrombolysis not recommended: Outside of window Reason Thrombolysis not recommended Comments: nondisabling deficit, clinical picture most consistent with Barros's palsy ICD-10 Code ICD-10 Code (Primary): G51.0 : Barros's palsy ICD-10 Code: R29.810 : Facial weakness ICD-10 Code: G50.1 : Atypical facial pain Attestation Interaction Mode: Video & Phone Time of Phone Call : 02-04-2024 12:27 AM ET Time of Video Call : 02-04-2024 12:06 AM ET Interaction Attestation: Clinical telemedicine services delivered using HIPAA- compliant interactive video-audio telecommunications while the patient and the rendering provider were not in the same physical location. Written report was provided to the requesting provider. Evaluation Duration (mins): 15 Alexandra Timer Summary ED Arrival Date and Time: 02-03-2024 08:58 PM ET Date and Time of Request: 02-03-2024 11:55 PM ET Physician Signature This document was electronically signed by: Henrietta Kimball MD Medications & Allergies Home Medications: Home Medication List Aspirin 81 mg PO DAILY 02/16/15 [History Confirmed 02/03/24] Trazodone HCl 300 mg PO HS 02/21/19 [History Confirmed 02/03/24] Losartan/Hydrochlorothiazide [Hyzaar 50-12.5 Tablet] 1 tablet PO DAILY 11/09/22 [History Confirmed 02/03/24] dilTIAZem HCL [Diltiazem 24Hr ER] 240 mg PO DAILY 11/09/22 [History Confirmed 02/03/24] Ezetimibe 10 mg [Zetia 10 MG] 10 mg PO DAILY #90 tab 11/10/22 [Rx Confirmed 02/03/24] Dextroamphetamine/Amphetamine [Adderall Xr 30 mg Capsule] 30 mg PO DAILY 02/03/24 [History Confirmed 02/03/24] Tirzepatide [Mounjaro] 5 mg SQ WEEKLY 02/03/24 [History Confirmed 02/03/24] Allergies/Adverse Reactions: Allergies Allergy/AdvReac Type Severity Reaction Status Date / Time hydrocodone bitartrate Allergy Mild Itching Verified 02/03/24 20:55 [From Vicodin] oxycodone [Oxycodone] Allergy Mild Itching Verified 02/03/24 20:55 Sulfa (Sulfonamide Allergy Mild Hives Verified 02/03/24 20:55 Antibiotics) [Sulfa(Sulfonamide Antibiotics)] hydrocodone Allergy Verified 02/03/24 20:55 morphine Allergy Verified 02/03/24 20:55 silk AdvReac Intermediate Blisters Verified 02/03/24 20:55 codeine AdvReac Mild Itching Verified 02/03/24 20:55 meperidine HCl [From Demerol] AdvReac Mild Vomiting Verified 02/03/24 20:55 - Past Medical History Past Medical History: Yes Neurological History: No Pertinent History ENT History: No Pertinent History Cardiac History: Coronary Artery Disease, High Cholesterol, Hypertension Respiratory History: No Pertinent History Endocrine Medical History: No Pertinent History Musculoskelatal History: Osteoarthritis, Other GI Medical History: GERD, Gallbladder Disease, GI Bleed History: Renal Disease, Other Pyscho-Social History: Anxiety, Depression Reproductive Disorders: Abnormal Uterine Bleeding, Endometriosis Comment: 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 BILATERAL KNEE LATERAL RELEASES 15 YEARS AGO. HYSTERECTOMY. GALL BLADDER. GOUT - Past Surgical History Past Surgical History: Yes Neuro Surgical History: No Pertinent History Cardiac History: CABG, Cardiac Catheterization Respiratory Surgery: No Pertinent History GI Surgical History: Cholecystectomy Genitourinary Surgical Hx: Kidney Surgery Musculskeletal Surgical Hx: Other Female Surgical History: Hysterectomy Other Surgical History: knee muscle lateral release dwaine , kidney stone removal x 7, hernia repair Significant Family History: heart disease, hypertension - Social History Smoking Status: Never smoker Exposure to second hand smoke: No Alcohol: None Drug Use: none - Social Determinants of Health Will the patient participate in the screening: Yes Do you worry about a steady place to live?: No Do you have any problems with any of the following?: No known problems In the past 12 months,have you had to go without utilities?: No Have you or anyone in your house had to go without enough: No Transportation Issues: No Has anyone in your support network made you feel unsafe?: No - Physical Exam Vital Signs: Vital Signs - 24 hr Temp Pulse Resp BP BP Pulse Ox 02/04/24 00:34 97 02/04/24 00:01 79 162/85 97 02/03/24 23:31 76 170/86 97 02/03/24 23:01 75 149/81 98 02/03/24 22:30 76 156/81 97 02/03/24 22:28 72 145/77 99 02/03/24 22:20 100 02/03/24 22:18 99 02/03/24 21:30 129/72 02/03/24 21:00 141/80 99 02/03/24 20:58 97.7 F 74 20 164/83 97 Results - Labs Lab/Micro Results: Lab Results-Last 24 Hours 02/03/24 02/03/24 Range/Units 21:50 21:50 WBC 10.6 H (4.0-10.5) x10^3/uL RBC 4.75 (4.1-5.4) x10^6/uL Hgb 9.7 L (12.0-16.0) g/dL Hct 32.6 L (35-47) % MCV 68.6 L (78-100) fL MCH 20.4 L (26-32) pg MCHC 29.8 L (32-36) g/dL RDW 18.1 H (11.5-14.0) % Plt Count 473 H (150-450) x10^3/uL MPV 9.4 (7.5-11.0) fL Gran % 68.9 H (36.0-66.0) % Immature Gran % (Auto) 0.3 (0.00-0.4) % Nucleat RBC Rel Count 0.0 (0.00-0.1) % Eos # (Auto) 0.13 (0-0.5) x10^3/uL Immature Gran # (Auto) 0.03 (0.00-0.03) x10^3u/L Absolute Lymphs (auto) 2.18 (1.0-4.6) x10^3/uL Absolute Monos (auto) 0.91 (0.0-1.3) x10^3/uL Absolute Nucleated RBC 0.00 (0.00-0.01) x10^3u/L Lymphocytes % 20.7 L (24.0-44.0) % Monocytes % 8.6 (0.0-12.0) % Eosinophils % 1.2 (0.00-5.0) % Basophils % 0.3 (0.0-0.4) % Absolute Granulocytes 7.27 H (1.4-6.9) x10^3/uL Basophils # 0.03 (0-0.4) x10^3/uL Sodium 141 (135-145) mmol/L Potassium 3.6 (3.5-5.1) mmol/L Chloride 105 (98-107) mmol/L Carbon Dioxide 26 (22-30) mmol/L Anion Gap 14.9 (5-15) MEQ/L BUN 32 H (7-17) mg/dL Creatinine 1.15 H (0.52-1.04) mg/dL Estimated GFR 54.9 ML/MIN Glucose 103 (74-106) mg/dL Calcium 10.1 (8.4-10.2) mg/dL Total Bilirubin 0.40 (0.2-1.3) mg/dL AST 24 (14-36) U/L ALT 20 (0-35) U/L Alkaline Phosphatase 84 (38-126) U/L Serum Total Protein 8.0 (6.3-8.2) g/dL Albumin 4.6 (3.5-5.0) g/dL - Radiology Impressions Radiology Exams & Impressions: Radiology Procedures Category Date Time Status CTA HEAD W AND/OR WO CONTRAST [CT] Stat Exams 02/03/24 23:48 Ordered FACIAL BONES WO CONTRAST [CT] Stat Exams 02/03/24 21:16 Taken HEAD WITHOUT CONTRAST [CT] Stat Exams 02/03/24 21:29 Completed NECK WITH CONTRAST [CT] Stat Exams 02/03/24 21:15 Taken
--- NOTE | 2024-02-04 01:07 | XRAY ---
CLINICAL HISTORY: right sided neck mass COMPARISON: TECHNIQUE: A CT scan of the neck was performed with the administration of intravenous contrast. Sagittal and coronal reconstructions were obtained. 20 cc Gadolinium was administered for post-contrast images."One of the following dose reduction techniques was utilized for this exam: Automated exposure control, adjustment of the mA and/or kV according to patient size, and use of iterative reconstruction." FINDINGS: Right parotid gland appears bulky incuing overlying contour bulge and shows faint heterogeneous contrast enhancement, possibility of early acute parotitis needs to be considered. no obvious enhancing masses or marginally enhanicng fluid filled pockets formation Few subcentimetric non-specific bilateral cervical nodes noted. Normal CT appearance of the supra-and infra-hyoid deep neck spaces. Normal CT appearance of the larynx, namely the supraglottic, glottic and infra, glottic spaces. Unremarkable. Nasal and Suni pharyngeal mucosal spaces. Normal CT appearance of the sublingual, submandibular salivary glands and left parotid gland. The base of the tongue, the uvula, the epiglottis, the vocal cords, the upper trachea, the upper esophagus are unremarkable. The thyroid gland shows the right lobe with few small hypodense nodules, the largest measures about 6 mm. The cervical spine shows degenerative changes. Atherosclerotic changes seen in the bilateral carotid artery. IMPRESSION: 1. Bulky right parotid gland shows heterogeneous contrast enhancement, possibility of early acute parotitis needs to be considered. no obvious enhancing masses or marginally enhanicng fluid filled pockets formation. Recommended clinical correlation. 2. Right thyroid lobe hypodense nodules. advise sonographic correlation. [facility] ER was called at [phone] at 11:55 PM SALESPERSON DRIVER, 02/03/2024 and Jonelle (registered nurse)was informed about important medical findings. Electronically Signed by: Alexander Dumont MD. (02/04/2024 01:04:08 EDT)
--- NOTE | 2024-02-04 01:09 | XRAY ---
CLINICAL HISTORY: right sided neck/mandible swelling COMPARISON: None TECHNIQUE: A non-contrast CT scan of the maxillofacial region was performed, with sagittal and coronal multiplanar reconstruction."One of the following dose reduction techniques was utilized for this exam: Automated exposure control, adjustment of the mA and/or kV according to patient size, and use of iterative reconstruction." FINDINGS: The right parotid gland appears bulky with inhomogeneity and haziness of its parenchyma, possibility of early acute parotitis needs to be considered. Nasal Septum: Midline Turbinates: Thickening of the mucosa covering the left inferior turbinate. No evidence of marya bullosa or paradoxical curvature Uncinate Processes: No deviation or bulla formation O-M UNIT: Infundibula and hiatus semilunaris are widely patent. SINUSES: The frontal, sphenoid, maxillary sinuses and ethmoid air cells are well pneumatized. left maxillary antrum focal polypoid mucosal thickening/retention cyst. Nasopharynx: Unremarkable. Facial Bones and mandible: Unremarkable. Bilateral mastoid air cells appear unremarkable. IMPRESSION: 1. The right parotid gland appears bulky with faint haziness in its parenchyma, possibility of early acute parotitis needs to be considered. Recommended clinical correlation. 2. intact maxillo-facial bones and mandible with no fractures. [facility] ER was called at [phone] at 11:55 PM REALTY SPECIALIST, 02/03/2024 and Jonelle (registered nurse)was informed about important medical findings. Electronically Signed by: Alexander Dumont MD. (02/04/2024 01:04:26 EDT)
[2024-02-04] MEDS ORDERED: BENADRYL 50 MG/ML ONE (03:16)
[2024-02-04] MEDS: BENADRYL 50 MG/ML IV ONE (03:18)
[2024-02-04] MEDS: Unasyn 1.5GM Vial*** 1.5 G in Sodium Chloride 0.9% 100 ML IV ONE (03:27)
--- NOTE | 2024-02-04 03:55 | XRAY ---
CLINICAL HISTORY: RIGHT SIDE FACIAL DROOP COMPARISON: prior on 02/03/2024 21:06:38 STATEMENT CLERKS SUPERVISOR TECHNIQUE: Contrast enhanced thin slice CT angiography scan of the carotid vessels was performed with intravenous contrast. Angiographic images were processed, 3D MIP images were acquired for interpretation.Contiguous axial images were obtained. Reformatted coronal and sagittal images were also reviewed. If IV contrast material had not been administered, the likelihood of detecting abnormalities relevant to the patients condition would have been substantially decreased. CT scan was performed according to ALARA (as low as reasonable achievable). FINDINGS: Included great vessels of the aortic arch are grossly unremarkable. Common carotid artery, carotid Bulb, internal carotid artery , and origin of the external carotid artery are well opacified. Mild atherosclerotic wall calcifications noted in bilateral carotid bulb amd right proximal internal carotid artery. Vertebral arteries are well opacified. Jugular veins are well opacified. Included lung apices are grossly unremarkable. Thyroid gland shows hypodense nodule measuring 6 mm x 6 mm in right lobe. Right parotid gland is mild bulky, shows preserved attenuation. No fluid collections is noted. IMPRESSION: 1. No evidence of stenosis or aneurysm. No evidence of dissection. 2. Mild atherosclerotic calcifications in bilateral carotid bulb and right proximal ICA, with no significant lumen narrowing 3. Rest of the findings are same as previous study Electronically Signed by: Fernando Ramsey MD. (02/04/2024 03:50:27 EDT)
--- NOTE | 2024-02-04 03:57 | XRAY ---
CLINICAL HISTORY: facial droop, stroke like sx COMPARISON: None TECHNIQUE: Contrast enhanced thin slice CT angiography scan of the cerebral vessels was performed with intravenous contrast. Contiguous axial images were obtained. Reformatted coronal and sagittal images were also reviewed. If IV contrast material had not been administered, the likelihood of detecting abnormalities relevant to the patient's condition would have been substantially decreased. CT scan was performed according to ALARA (as low as reasonably achievable). FINDINGS: Bilateral internal carotid arteries show normal course, caliber and opacification in the canalicular and cavernous part. Their division into the anterior cerebral artery and middle cerebral artery is defined. A1, A2 and M1, M2 segments are normal on both the sides. Bilateral vertebral arteries are seen to unite the form the basilar artery in a normal fashion. Basilar artery shows normal course, caliber and opacification. Its division into the posterior cerebral arteries is defined. Bilateral P1 and P2 segments are normal. Visualized venous structures show normal opacification. No evidence of intracranial aneurysm or AV malformation is seen. IMPRESSION: 1. No evidence of stenosis or aneurysm. No evidence of dissection. Electronically Signed by: Fernando Ramsey MD. (02/04/2024 03:52:28 EDT)
[2024-02-04 04:06] VITALS: BP 161/72; PULSE 67; O2SAT 99
== END 2024-02-04 04:18 | disposition short-term general hospital (02) ==
LOC: ED 20:43
DX: R29.810 Facial weakness (principal); K11.21 Acute sialoadenitis; M54.2 Cervicalgia; R22.1 Localized swelling, mass and lump, neck; R51.9 Headache, unspecified; E78.5 Hyperlipidemia, unspecified; I10 Essential (primary) hypertension; Z79.85 Long-term (current) use of injectable non-insulin antidiabetic drugs; Z79.899 Other long term (current) drug therapy
CPT/HCPCS: 36000; 36415; 70450; 70486; 70491; 70496; 70498; 80053; 85025; 96374; 99285; 99291; J0295; J1200

== ENCOUNTER 2024-05-25 02:42 | Emergency (ER) | payer OTHER ==
[2024-05-25 03:07] VITALS: TEMP 98.7
[2024-05-25] MEDS ORDERED: MORPHINE SULFATE 4 MG INJ ONE (04:06)
[2024-05-25] MEDS ORDERED: BENADRYL 50 MG/ML ONE (04:06)
[2024-05-25] MEDS ORDERED: TYLENOL 325 MG ONE (04:06)
[2024-05-25] MEDS ORDERED: Reglan 10 MG/2 ML ONE (04:07)
--- NOTE | 2024-05-25 04:18 | ERPHSYRPT ---
- History of Present Illness Time Seen by Provider: 05/25/24 03:56 Source: patient Exam Limitations: no limitations Patient Subjective Stated Complaint: migraine on left side of head, making left side of face twitch and barros's palsy flair up on left side, dizziness when be nding over and then standing up for the past week Triage Nursing Assessment: Pt ambulated to room without difficulty. A&O X 3. Skin color WNL. Bilateral pupils 3mm, reactive to light. Slight left sided facial droop noted-pt states this is normal for her d/t bells palsy. Denies weakness or numbness in any extremities. Denies fever, cough, SOB, N/V/D. 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 Patient reports some element of photophobia and phonophobia but denies any vision changes, numbness or weakness. Currently rates 5/10 intensity headache, does not think the worst headache of her life, denies any neck pain, no associated nausea or vomiting. Headache is similar to previous episodes. Patient usually get relief in her migraine with her routine medications at home but today she was taking and it was not working. Later on it was found that patient was taking Zofran instead of her migraine medications. No chest pain palpitations or shortness of breath. No fever or chills reported. Allergies/Adverse Reactions: hydrocodone bitartrate [From Vicodin] Allergy (Mild, Verified 05/25/24 02:53) Itching oxycodone [Oxycodone] Allergy (Mild, Verified 05/25/24 02:53) Itching Sulfa (Sulfonamide Antibiotics) [Sulfa(Sulfonamide Antibiotics)] Allergy (Mild, Verified 05/25/24 02:53) Hives adhesive tape Allergy (Verified 05/25/24 02:53) Blisters hydrocodone Allergy (Verified 05/25/24 02:53) Itching morphine Allergy (Verified 05/25/24 02:53) Itching codeine Adverse Reaction (Mild, Verified 05/25/24 02:53) Itching meperidine HCl [From Demerol] Adverse Reaction (Mild, Verified 05/25/24 02:53) Vomiting Home Medications: Aspirin 81 mg PO DAILY 02/16/15 [History] Trazodone HCl 150 mg PO HS 02/21/19 [History] Losartan/Hydrochlorothiazide [Hyzaar 50-12.5 Tablet] 1 tablet PO DAILY 11/09/22 [History] dilTIAZem HCL [Diltiazem 24Hr ER] 240 mg PO DAILY 11/09/22 [History] Dextroamphetamine/Amphetamine [Adderall Xr 30 mg Capsule] 30 mg PO DAILY 02/03/24 [History] Tirzepatide [Mounjaro] 7.5 mg SQ WEEKLY 02/03/24 [History] Hx Tetanus, Diphtheria Vaccination/Date Given: No (wants to get it) Hx Influenza Vaccination/Date Given: No Hx Pneumococcal Vaccination/Date Given: No Immunizations Up to Date: Yes Travel Risk - International Travel Have you traveled outside of the country in past 3 weeks: No - Emerging Infectious Disease Are you exhibiting symptoms associated with any current EIDs: No - Review of Systems Constitutional: No Symptoms Eyes: No Symptoms Ears, Nose, & Throat: No Symptoms Respiratory: No Symptoms Cardiac: No Symptoms Abdominal/Gastrointestinal: No Symptoms Genitourinary Symptoms: No Symptoms Musculoskeletal: Arthralgias Skin: No Symptoms Neurological: Dizziness, Headache Psychological: No Symptoms Endocrine: No Symptoms Hematologic/Lymphatic: No Symptoms - Past Medical History Pertinent Past Medical History: Yes Neurological History: Migraines ENT History: No Pertinent History Cardiac History: Coronary Artery Disease, High Cholesterol, Hypertension, Myocardial Infarction ([place]) Respiratory History: No Pertinent History Endocrine Medical History: No Pertinent History Musculoskeletal History: Osteoarthritis, Other GI Medical History: GERD, Gallbladder Disease, GI Bleed History: Renal Disease, Other Psycho-Social History: Anxiety, Depression Female Reproductive Disorders: Abnormal Uterine Bleeding, Endometriosis Other Medical History: gout - Past Surgical History Past Surgical History: Yes Neuro Surgical History: No Pertinent History Cardiac: CABG, Cardiac Catheterization Respiratory: No Pertinent History Gastrointestinal: Cholecystectomy, Hernia Repair Genitourinary: Kidney Surgery Musculoskeletal: Other Female Surgical History: Hysterectomy Other Surgical History: knee muscle lateral release bilaterally, kidney stone removal x 7 Significant Family History: heart disease, hypertension - Social History Smoking Status: Never smoker Exposure to second hand smoke: No Drug Use: none Patient Lives Alone: No - Social Determinants of Health Will the patient participate in the screening: Yes Do you worry about a steady place to live?: No Do you have any problems with any of the following?: No known problems In the past 12 months,have you had to go without utilities?: No Transportation Issues: No Has anyone in your support network made you feel unsafe?: No Have you or anyone in your house had to go without enough: No - Nursing Vital Signs Nursing Vital Signs: Initial Vital Signs Temperature 98.7 F 05/25/24 02:57 Pulse Rate 66 05/25/24 02:57 Respiratory Rate 16 05/25/24 02:57 Blood Pressure 149/87 05/25/24 02:57 O2 Sat by Pulse Oximetry 99 05/25/24 02:57 Pain Scale Pain Intensity 4 - Physical Exam General Appearance: no apparent distress, alert Eye Exam: PERRL/EOMI Ears, Nose, Throat Exam: normal ENT inspection, pharynx normal Neck Exam: normal inspection, non-tender, full range of motion Respiratory Exam: normal breath sounds, lungs clear Cardiovascular Exam: regular rate/rhythm, normal heart sounds Gastrointestinal/Abdominal Exam: soft, normal bowel sounds, No tenderness Extremity Exam: normal inspection, normal range of motion Mental Status Exam: alert, oriented x 3, 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 Exam: normal hearing, normal speech, PERRL Coordination/Gait Exam: normal finger to nose, normal gait, normal cerebellar function Motor/Sensory Exam: no motor deficit, no sensory deficit, no pronator drift, negative Babinski's sign DTR Exam: bicep (R): 2+, bicep (L): 2+, knee (R): 2+, knee (L): 2+ Skin Exam: normal color SpO2 Interpretation: normal SpO2: 94 O2 Delivery: Room Air Ordered Tests: Medication Summary Discontinued Medications Generic Name Dose Route Start Last Admin Trade Name Freq PRN Reason Stop Dose Admin Acetaminophen 975 mg 05/25/24 03:57 Acetaminophen 325 Mg Tablet PO 05/25/24 03:58 STAT ONE Acetaminophen Confirm 05/25/24 04:06 Acetaminophen 325 Mg Tablet Administered 05/25/24 04:07 Dose 975 mg .ROUTE .STK-MED ONE Diphenhydramine HCl 25 mg 05/25/24 03:57 Diphenhydramine Hcl 50 Mg/Ml Vial IV 05/25/24 03:58 STAT ONE Diphenhydramine HCl Confirm 05/25/24 04:06 Diphenhydramine Hcl 50 Mg/Ml Vial Administered 05/25/24 04:07 Dose 50 mg .ROUTE .STK-MED ONE Diphenhydramine HCl 25 mg 05/25/24 04:10 Diphenhydramine Hcl 50 Mg/Ml Vial IM 05/25/24 04:11 STAT ONE Metoclopramide HCl 10 mg 05/25/24 03:57 Metoclopramide Hcl 10 Mg/2 Ml Vial IV 05/25/24 03:58 STAT ONE Metoclopramide HCl Confirm 05/25/24 04:07 Metoclopramide Hcl 10 Mg/2 Ml Vial Administered 05/25/24 04:08 Dose 10 mg .ROUTE .STK-MED ONE Morphine Sulfate 4 mg 05/25/24 03:57 Morphine Sulfate 4 Mg/Ml Injection IV 05/25/24 03:58 STAT ONE Morphine Sulfate Confirm 05/25/24 04:06 Morphine Sulfate 4 Mg/Ml Injection Administered 05/25/24 04:07 Dose 4 mg .ROUTE .STK-MED ONE - Progress Progress: improved, re-examined Air Movement: good Progress Note: 05/25/24 05:16 59 years old is evaluated in the ER for left-sided headache. She has a history of migraine. Has no focal neuro's symptoms. No signs of meningismus. Headache is similar to previous and is not the worst headache of her life. Patient was taking Zofran instead of her migraine medications at home. I have given her Reglan Benadryl and morphine, on reevaluation her headache is improved. I do not think patient needs any imaging or workup, can be discharged with outpatient follow-up. Discussed signs symptoms of worsening needing return to ER which she seems understanding. Stable for discharge. Blood Culture(s) Obtained: No Antibiotics given: No Counseled pt/family regarding: diagnosis, need for follow-up Medical Desision Making - Risk of complications The pt has a mod risk of morbidity or mortality based on: Need for prescription drug management - Departure Clinical Impression: Migraine Qualifiers: Migraine type: unspecified Status migrainosus presence: without status migrainosus Intractability: not intractable Qualified Code(s): G43.909 - Migraine, unspecified, not intractable, without status migrainosus Condition: Stable Critical Care Time: No Referrals: REED CAM MD [Primary Care Provider] - Follow up with PCP 1 day Instructions: Headache, Adult (DC) Additional Instructions: Take Tylenol/meloxicam as recommended. Follow-up with a primary care for reevaluation and may need referral for neurology for further evaluation and to be placed on prophylactic medicine for migraine. Return to ER for intractable headache/vomiting/visual disturbance/numbness tingling or focal weakness etc.
[2024-05-25] MEDS: TYLENOL 325 MG PO ONE (04:24)
[2024-05-25] MEDS: Reglan 10 MG/2 ML IM ONE (04:25)
[2024-05-25] MEDS: MORPHINE SULFATE 4 MG INJ IM ONE (04:26)
[2024-05-25] MEDS: BENADRYL 50 MG/ML IM ONE (04:26)
[2024-05-25] MEDS: MORPHINE SULFATE 4 MG INJ IV ONE (04:39)
[2024-05-25] MEDS: BENADRYL 50 MG/ML IV ONE (04:39)
[2024-05-25] MEDS: Reglan 10 MG/2 ML IV ONE (04:40)
[2024-05-25 05:16] VITALS: BP 139/78; PULSE 60; RESP 17; O2SAT 95
== END 2024-05-25 05:25 | disposition home or self-care (01) ==
LOC: ED 02:42
DX: G43.909 Migraine, unspecified, not intractable, without status migrainosus (principal); I10 Essential (primary) hypertension; E78.5 Hyperlipidemia, unspecified; Z79.85 Long-term (current) use of injectable non-insulin antidiabetic drugs; Z79.899 Other long term (current) drug therapy
CPT/HCPCS: 96372; 99283; J1200; J2270; A9270-GY

== ENCOUNTER 2024-11-23 06:25 | Day surgery (SDC) | payer OTHER ==
[~2024-11-23 06:25] MED LIST: BACIGUENT 30 GM ONE; Epinephrine Preservative Free 1 MG/ML ONE
[2024-11-23] MEDS: Decadron 4 MG PO ONE (06:47)
[2024-11-23] MEDS: Transderm Scop 1.5MG Patch TOP PRN (06:47)
[2024-11-23] MEDS: NEURONTIN PO ONE (06:47)
[2024-11-23] MEDS: TYLENOL EXTRA STRENGTH 500 MG PO ONE (06:47)
[2024-11-23] MEDS: celeBREX 100 MG PO ONE (06:47)
[2024-11-23] MEDS: Pepcid 20 MG VIAL IV ONE (06:48)
[2024-11-23] MEDS: CEFAZOLIN 2 GM/100 ML NaCl 2 GM/100 ML IVPB IV SCH (06:48)
[2024-11-23] MEDS: Lactated Ringers 1,000 ML IV SCH (06:48)
[2024-11-23 06:52] VITALS: O2SAT 100
[2024-11-23] MEDS ORDERED: EXPAREL 133 MG/10 ML VIAL IJ ONE (07:53)
[2024-11-23] MEDS ORDERED: Marcaine Mpf 0.5% Vial 30 Ml ONE (07:53)
[2024-11-23] MEDS ORDERED: Pre-Attached Lta Kit TP ONE (07:53)
[2024-11-23] MEDS ORDERED: Versed 2 MG/2 ML Injection ONE ×2 (07:59→08:10)
[2024-11-23] MEDS ORDERED: DEXMEDETOMIDINE 80 MCG/20ML-NS IV ONE (08:00)
[2024-11-23] MEDS ORDERED: Xylocaine-Mpf 2% 5 Ml Vial ONE (08:00)
[2024-11-23] MEDS ORDERED: ROCURONIUM BROMIDE IV ONE (08:00)
[2024-11-23] MEDS ORDERED: Zofran 4 MG/2 ML VIAL ONE (08:00)
[2024-11-23] MEDS ORDERED: BREVIBLOC 100 MG/10 ML IV ONE (08:00)
[2024-11-23] MEDS ORDERED: propofoL IV ONE (08:02)
[2024-11-23] MEDS ORDERED: Ephedrine Sulfate 50 MG/ML ONE (08:59)
[2024-11-23] MEDS ORDERED: PHENYLEPHRINE HCL ONE (09:42)
[2024-11-23] MEDS ORDERED: Epinephrine Preservative Free 1 MG/ML ONE (09:57)
[2024-11-23] MEDS ORDERED: TORAdol 30 mg Injection ONE (10:06)
[2024-11-23] MEDS ORDERED: BRIDION 200MG/2ML IV ONE (10:06)
[2024-11-23] MEDS ORDERED: TYLENOL EXTRA STRENGTH 500 MG PO PRN (14:07)
[2024-11-23] MEDS ORDERED: NON-FORMULARY ITEM (Sumatriptan Succinate [Imitrex 50 Mg] 50 MG Tablet) PO PRN (14:08)
[2024-11-23] MEDS ORDERED: Naprosyn 500 MG PO SCH (14:15)
[2024-11-23] MEDS ORDERED: NON-FORMULARY ITEM (Tirzepatide [Mounjaro] 5 MG/0.5 ML Pen.Injctr) SQ SCH (14:15)
[2024-11-23] MEDS ORDERED: MEDICATION INTERVENTION MC SCH ×2 (15:45→16:15)
[2024-11-23] MEDS ORDERED: Cardizem CD PO SCH (16:00)
[2024-11-23] MEDS ORDERED: ECOTRIN 81 MG PO SCH (16:00)
[2024-11-23 18:19] VITALS: BP 143/74; PULSE 74; RESP 17; TEMP 98.7
[2024-11-23] MEDS ORDERED: DESYREL 50 MG PO SCH (22:00)
[2024-11-23] MEDS ORDERED: TRAZODONE HCL 300 MG PO SCH (22:00)
[2024-11-24] MEDS ORDERED: HYDROCHLOROTHIAZIDE PO SCH (10:00)
[2024-11-24] MEDS ORDERED: NON-FORMULARY ITEM (Aspirin [Aspirin] 81 MG Tablet) PO SCH (10:00)
[2024-11-24] MEDS ORDERED: [UNRECOGNIZED DRUG - OTHER] PO SCH (10:00)
[2024-11-24] MEDS ORDERED: hydroDIURIL 25 MG PO SCH (10:00)
[2024-11-24] MEDS ORDERED: NON-FORMULARY ITEM (Diltiazem Hcl [Diltiazem 24hr Er] 240 MG Cap.Sa.24h) PO SCH (10:00)
[2024-11-24] MEDS ORDERED: DEXTROAMPHETAMINE PO SCH (10:00)
[2024-11-24] MEDS ORDERED: AMPHETAMINE PO SCH (10:00)
[2024-11-24] MEDS ORDERED: LOSARTAN PO SCH (10:00)
[2024-11-24] MEDS ORDERED: Cozaar 50 MG PO SCH (10:00)
--- NOTE | 2024-11-26 11:17 | OP ---
SURGERY DATE/TIME: 11/23/2024 [id number] PREOPERATIVE DIAGNOSIS: Right rotator cuff tear. POSTOPERATIVE DIAGNOSES: 1) Right rotator cuff tear. 2) Degenerative tearing of the glenoid labrum. PROCEDURE: Arthroscopy of the right shoulder with rotator cuff repair utilizing an Arthrex SpeedBridge configuration with FiberTape and debridement glenoid labrum. SURGEON: Brett Cano II, DO. ANESTHESIA: General with a block for postop pain control. DESCRIPTION OF PROCEDURE AND FINDINGS: The patient was identified, and informed consent was obtained. The patient was taken to the operative suite where she was placed into the supine position on the operating table and the general anesthetic was administered. It should be noted the block was placed in the preop holding area prior to taking the patient to the operating room. Once an appropriate level of anesthesia had been obtained, the patient was placed into the left lateral decubitus position with the right side up. The axillary roll was placed and bony prominences padded. Shoulders were rotated back 20 degrees and the dunbar bag was then inflated. The right shoulder and upper extremity were then prepped and draped in the usual sterile fashion. A standard time-out was taken. The arm was then placed into an abduction traction device with 20 degrees of forward flexion, 40 degrees of lateral opening and 10 pounds of longitudinal traction. Shoulder was marked for bony landmarks and a standard posterior portal was then created with an 11 blade. Trocar and cannula were placed in the glenohumeral joint. The joint was then distended with the arthroscopic pump. An anterior portal was created after the level had been identified with the 18-gauge spinal needle. The glenohumeral joint was then inspected in a systematic fashion. The patient was noted to have fraying tears of the anterior, superior and posterior horns of the glenoid labrum. These were debrided and contoured with the shaver, as well as the wand. Biceps tendon and its anchor were noted to be intact. The glenohumeral ligaments were noted to be intact. The infraglenoid pouch had no loose bodies or synovial hypertrophy. Humeral head and glenoid fossa were intact as well. The infraspinatus, subscapularis and teres were all noted to be intact. There was a crescent-shaped tear involving the supraspinatus tendon with very mild retraction. The undersurface of the rotator cuff was debrided to good healthy tissue and at this point, the bony bed was prepared through a lateral portal for as far as could be seen on the articular side. The scope was then placed into the bursal space where bursoscopy was performed. Patient had no evidence of scuffing on the undersurface of the acromion, and her x-rays showed a type 1 acromion, thus it was deemed she did not need an acromioplasty. At this point, the rotator cuff edges were freshened. The bony bed was prepared and utilizing a SpeedBridge configuration with 4.75 anchors and FiberTape, the rotator cuff was repaired back to its anatomic bed. An excellent repair of the rotator cuff was noted. At this point, the shoulder was copiously irrigated and reinspected. No further pathology identified. The instrumentation was removed and the portal sites were closed with interrupted 4-0 nylon suture. Adaptics, 4 x 4's, and a standard postop arthroscopy dressing applied. Patient was placed into an UltraSling, transferred to the cart, and taken to the recovery room in satisfactory condition, having tolerated the procedure well.
== END 2024-11-23 18:02 | disposition home or self-care (01) ==
LOC: SDC 06:25 → MED SURG 12:26 → SDC 18:02
PROVIDERS: ATTEND Orthopaedic Surgery
DX: M75.121 Complete rotator cuff tear or rupture of right shoulder, not specified as traumatic (principal); E11.9 Type 2 diabetes mellitus without complications
CPT/HCPCS: 29823; 29827; 82947; J0171; J0666; J0690; J1885; J2250; J2371; J2405; J2704; A9270-GY

== ENCOUNTER 2025-01-27 00:09 | Emergency (ER) | payer OTHER ==
--- NOTE | 2025-01-27 00:13 | ERPHSYRPT ---
- History of Present Illness Time Seen by Provider: 01/27/25 00:13 Source: patient, family Exam Limitations: no limitations Physician History: This is a 59-year-old white female patient of Dr. Cam who arrives by private vehicle with a complaint of intermittent coughing for 1 week. Patient has tried Zyrtec medication because she felt it might be a environmental allergy. She also has used nasal spray and took 4 days of an "old" prescription of amoxicillin. None of this helped relieve the dry, nonproductive coughing symptoms. She has no chest pain. She has chronic migraine headaches and does have a headache today. There has been no fever. There is been no nausea vomiting or diarrhea symptoms. She has no abdominal pain. Patient has a history of coronary artery disease (CABG) Timing/Duration: week(s) (1) Cough Quality/Degree: mild (To moderate), dry cough Possible Cause: occasional episodes Modifying Factors: Improves With: coughing Associated Symptoms: cough, wheezing, No fever, No chills, No chest pain/soreness, No muscle aches, No nasal congestion, No nasal drainage, No shortness of breath Allergies/Adverse Reactions: hydrocodone bitartrate [From Vicodin] Allergy (Mild, Verified 01/27/25 00:36) Itching oxycodone [Oxycodone] Allergy (Mild, Verified 01/27/25 00:36) Itching Sulfa (Sulfonamide Antibiotics) [Sulfa(Sulfonamide Antibiotics)] Allergy (Mild, Verified 01/27/25 00:36) Hives adhesive tape Allergy (Verified 01/27/25 00:36) Blisters hydrocodone Allergy (Verified 01/27/25 00:36) Itching morphine Allergy (Verified 01/27/25 00:36) Itching codeine Adverse Reaction (Mild, Verified 01/27/25 00:36) Itching meperidine HCl [From Demerol] Adverse Reaction (Mild, Verified 01/27/25 00:36) Vomiting Home Medications: Aspirin 81 mg PO DAILY 02/16/15 [History] Trazodone HCl 150 mg PO HS 02/21/19 [History] Losartan/Hydrochlorothiazide [Hyzaar 50-12.5 Tablet] 1 tablet PO DAILY 11/09/22 [History] dilTIAZem HCL [Diltiazem 24Hr ER] 240 mg PO DAILY 11/09/22 [History] Dextroamphetamine/Amphetamine [Adderall Xr 30 mg Capsule] 20 mg PO BID 02/03/24 [History] Tirzepatide [Mounjaro] 7.5 mg SQ WEEKLY 02/03/24 [History] SUMAtriptan succinate [Imitrex 50 mg] 50 mg PO UD PRN 11/06/24 [History] Hx Tetanus, Diphtheria Vaccination/Date Given: No (wants to get it) Hx Influenza Vaccination/Date Given: No Hx Pneumococcal Vaccination/Date Given: No Travel Risk - International Travel Have you traveled outside of the country in past 3 weeks: No - Emerging Infectious Disease Are you exhibiting symptoms associated with any current EIDs: No - Review of Systems Constitutional: No Symptoms Eyes: No Symptoms Ears, Nose, & Throat: No Symptoms Respiratory: Cough, Wheezing Cardiac: No Symptoms Abdominal/Gastrointestinal: No Symptoms Genitourinary Symptoms: No Symptoms Musculoskeletal: No Symptoms Skin: No Symptoms Neurological: No Symptoms Psychological: No Symptoms Endocrine: No Symptoms Hematologic/Lymphatic: No Symptoms Immunological/Allergic: No Symptoms All Other Systems: Reviewed and Negative - Past Medical History Neurological History: Migraines Cardiac History: Coronary Artery Disease, Myocardial Infarction (RI) Endocrine Medical History: Other Musculoskeletal History: Other Other Medical History: 7 KIDNEY STONES; [place] 2001 W/ CABG. HYSTER, REGINALD - Past Surgical History Past Surgical History: Yes Neuro Surgical History: No Pertinent History Cardiac: CABG, Cardiac Catheterization Respiratory: No Pertinent History Gastrointestinal: Cholecystectomy, Hernia Repair Genitourinary: Kidney Surgery Musculoskeletal: Other Female Surgical History: Hysterectomy Other Surgical History: knee muscle lateral release bilaterally, kidney stone removal x 7 Significant Family History: heart disease, hypertension - Social History Smoking Status: Never smoker Exposure to second hand smoke: No - Social Determinants of Health Will the patient participate in the screening: Yes Do you worry about a steady place to live?: No In the past 12 months,have you had to go without utilities?: No Transportation Issues: No Has anyone in your support network made you feel unsafe?: No Have you or anyone in your house had to go w/o enough food: No - Nursing Vital Signs Nursing Vital Signs: Initial Vital Signs Temperature 98 F 01/27/25 00:15 Pulse Rate 69 01/27/25 00:15 Respiratory Rate 18 01/27/25 00:15 Blood Pressure 162/96 01/27/25 00:15 O2 Sat by Pulse Oximetry 100 01/27/25 00:15 Pain Scale Pain Intensity 0 - Physical Exam General Appearance: no apparent distress, alert Eye Exam: PERRL/EOMI, eyes nml inspection Ears, Nose, Throat Exam: normal ENT inspection, moist mucous membranes Neck Exam: normal inspection, non-tender, supple, full range of motion Respiratory Exam: airway intact, crackles/rales (Primarily left lung mid to upper lobe), wheezing (Expiratory wheezing left mid to left upper lobe), No chest tenderness, No respiratory distress, No stridor Cardiovascular Exam: regular rate/rhythm, normal heart sounds, normal peripheral pulses Gastrointestinal/Abdomen Exam: soft, normal bowel sounds, No tenderness Pelvic Exam: not done Rectal Exam: not done Extremity Exam: normal inspection, normal range of motion, pelvis stable Neurologic Exam: alert, oriented x 3, cooperative, mental health tech II-XII nml as tested, normal mood/affect, nml cerebellar function, nml station & gait, sensation nml Skin Exam: normal color, warm, dry Lymphatic Exam: No adenopathy SpO2 Interpretation: normal O2 Delivery: Room Air - Course Nursing assessment & vital signs reviewed: Yes Ordered Tests: Active Orders 24 hr Category Date Time Status CHEST 1 VIEW (PORTABLE) Stat Exams 01/27/25 00:51 Taken - Progress Progress: improved, re-examined Air Movement: good Progress Note: 01/27/25 01:13 My medical decision making and the assignment of low complexity of this patient's medical issue today is based on review of the patient's past medical history, review of the patient's medication list, reviewed patient drug allergy list, history present illness and physical findings on examination. The workup today includes viral swabs and chest x-ray. Differential diagnosis includes but is not limited to viral illness, upper respiratory infection, bronchitis, pneumonia I interpreted the preliminary chest x-ray report. I compared today's film to similar study dated 11/15/2024. Today's films shows bilateral perihilar infiltrates. Counseled pt/family regarding: lab results, diagnosis, need for follow-up, rad results Medical Desision Making - Diagnostic Testing Diagnostic test were ordered, analyzed, and reviewed by me: Yes Radiological Interpretation: Interpreted by me, Teleradiologist Report - Risk of complications The pt has a mod risk of morbidity or mortality based on: Need for prescription drug management - Departure Departure Disposition: Home Clinical Impression: Bilateral pulmonary infiltrates on chest x-ray Condition: Stable Critical Care Time: No Referrals: REED CAM MD [Primary Care Provider, [facility]] - Follow up/PCP as directed Additional Instructions: Drink plenty of clear liquids. Take your antibiotics and other medications as prescribed. Call your primary care provider on 01/28/2025, to make arrangements for follow-up appointment for further evaluation management Prescriptions: Benzonatate 200 mg PO TID PRN #10 cap PRN Reason: Cough Prednisone 10 mg [Deltasone 10 mg] 10 mg PO TID #12 tablet Albuterol 8 gm Mdi Hfa [Ventolin Hfa MDI] 8 gm IH Q4H #1 unit Azithromycin 250 mg [Zithromax 250 MG TABLET] 250 mg PO ZPACK #6 tablet
[2025-01-27 00:28] VITALS: TEMP 98
[2025-01-27 01:11] VITALS: O2SAT 97
[2025-01-27] MEDS ORDERED: solu-MEDROL ONE (01:29)
[2025-01-27] MEDS ORDERED: Tessalon Perles 100 MG PO ONE ×2 (01:29→01:36)
[2025-01-27] MEDS ORDERED: Rocephin 1000 MG INJ ONE (01:29)
[2025-01-27] MEDS ORDERED: Sterile H2O 10 ml IJ ONE (01:29)
[2025-01-27 01:35] LABS: INFLUENZA A NEGATIVE (NEGATIVE); INFLUENZA B NEGATIVE (NEGATIVE); RESPIRATORY SYNCTIAL VIRUS NEGATIVE (NEGATIVE); SARS-CoV-2 Xpert Express NEGATIVE (NEGATIVE)
[2025-01-27] MEDS: Rocephin 1000 MG INJ IM ONE (01:37)
[2025-01-27] MEDS: solu-MEDROL 125 MG, Sterile H2O 10 ml 2 ML IM ONE (01:37)
[2025-01-27] MEDS: Tessalon Perles 100 MG PO ONE (01:39)
[2025-01-27 02:05] VITALS: BP 159/88; PULSE 67; RESP 18
--- NOTE | 2025-01-27 08:05 | XRAY ---
Indication: Cough. Comparison: November 15, 2024 Portable chest again hyperinflated with minimal left base subsegmental atelectasis/scarring and small left infrahilar calcified granuloma. No focal infiltrate, consolidation, or large effusion. Heart not enlarged again with CABG. Bony thorax intact again with osteopenia, mild degenerative changes, and mild dextroscoliosis. Impression: Continued nonacute hyperinflated chest with chronic features.
== END 2025-01-27 02:00 | disposition home or self-care (01) ==
LOC: ED 00:09
DX: R91.8 Other nonspecific abnormal finding of lung field (principal); R05.1 Acute cough; R51.9 Headache, unspecified; Z79.52 Long term (current) use of systemic steroids; Z79.85 Long-term (current) use of injectable non-insulin antidiabetic drugs; Z79.899 Other long term (current) drug therapy
CPT/HCPCS: 0241U; 71045; 96372; 99284; J0696; J2919; A9270-GY